=== PATIENT | female | born 1965 | race Caucasian/White ===

== ENCOUNTER 2016-05-31 01:17 | Inpatient (IN) | payer OTHER ==
[2016-05-31] MEDS ORDERED: MORPHINE SULFATE 10 MG/ML IV ONE (01:41)
[2016-05-31] MEDS ORDERED: BENADRYL 50 MG/ML IV ONE (01:41)
[2016-05-31] MEDS ORDERED: Sodium Chloride 0.9% 1000 ML 1,000 ML IV STA (01:41)
[2016-05-31] MEDS ORDERED: Adacel Vial IM ONE ×2 (01:42→01:59)
[2016-05-31] MEDS ORDERED: BENADRYL 50 MG/ML ONE (01:58)
[2016-05-31] MEDS ORDERED: Sodium Chloride 0.9% 1000 ML 1,000 ML ONE (01:59)
[2016-05-31] MEDS ORDERED: MORPHINE SULFATE 10 MG/ML ONE (01:59)
--- NOTE | 2016-05-31 02:00 | ERPHSYRPT ---
- History of Present Illness Time Seen by Provider: 05/31/16 01:36 Source: patient Patient Subjective Stated Complaint: "i have an abcess on my bottum since tue. i have been doing bactrim and warm compresses, but they are not working. i have had a fever of 103 yesterday. i took tylenol at 11:30" Triage Nursing Assessment: aox3, breathing unlabored, skin pale warm dry, steady gait Physician History: CC: right buttock abscess Hx: 50 y/o diabetic patient of Dr Brown with hx of IDDM. 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 She noted right buttock redness, swelling, abscess about a week ago. Saw [employer]OR[employer] CLERK and started bactrim. The pain, swelling, and abscess have markedly worsened so she came to ER. It is severe. No fever or chills. Some constipation. Normal urination. Unsure last tetanus but it was outdated. Timing/Duration: week(s) (1) Quality: burning, painful Severity: severe Allergies/Adverse Reactions: lisinopril Allergy (Verified 05/31/16 01:30) Home Medications: Aripiprazole [Abilify] 5 mg PO DAILY 10/21/15 [History] Gemfibrozil 600 mg [Lopid 600 mg] 600 mg PO BID 10/21/15 [History] Hydrochlorothiazide 25 mg [hydroDIURIL 25 MG] 25 mg PO DAILY 10/21/15 [ History] Insulin Aspart [NovoLOG Insulin] 1 unit SQ UD 10/21/15 [History] Insulin Detemir [Levemir] 60 unit SQ DAILY 10/21/15 [History] Losartan Potassium 25 mg PO DAILY 10/21/15 [History] Metformin HCl 1000 mg [Glucophage 1000 MG] 1,000 mg PO BID 10/21/15 [History] Sertraline HCl [Zoloft] 200 mg PO HS 10/21/15 [History] Simvastatin 40 mg PO DAILY 10/21/15 [History] Hx Tetanus, Diphtheria Vaccination/Date Given: Yes Hx Influenza Vaccination/Date Given: Yes (2015) Hx Pneumococcal Vaccination/Date Given: No Immunizations Up to Date: Yes - Review of Systems Constitutional: Malaise, No Fever, No Chills Eyes: No Symptoms Ears, Nose, & Throat: No Symptoms Respiratory: No Dyspnea Cardiac: No Chest Pain Abdominal/Gastrointestinal: No Abdominal Pain, No Nausea, No Vomiting Genitourinary Symptoms: No Dysuria Musculoskeletal: No Back Pain Skin: Skin Lesions (right buttock abscess) Neurological: No Headache All Other Systems: Reviewed and Negative - Past Medical History Pertinent Past Medical History: Yes Neurological History: Peripheral Neuropathy Cardiac History: High Cholesterol, Hypertension Endocrine Medical History: Diabetes Type II Psycho-Social History: Anxiety, Depression Other Medical History: Arthritis - Past Surgical History Past Surgical History: Yes Gastrointestinal: Appendectomy Female Surgical History: Hysterectomy Other Surgical History: breast reduction - Social History Smoking Status: Never smoker Exposure to second hand smoke: No Drug Use: none Patient Lives Alone: Yes - Nursing Vital Signs Nursing Vital Signs: Initial Vital Signs Temperature 103.1 F Temperature Source Oral Pulse Rate 103 Respiratory Rate 14 Blood Pressure [Left Arm] 142/68 Pain Intensity 7 - Physical Exam General Appearance: alert, other (pleasant lady) Eye Exam: PERRL/EOMI Ears, Nose, Throat Exam: normal ENT inspection Neck Exam: normal inspection, supple Respiratory Exam: lungs clear Cardiovascular Exam: regular rate/rhythm Extremity Exam: normal inspection, normal range of motion Neurologic Exam: alert, oriented x 3, cooperative, sensation nml, No motor deficits Skin Exam: warm, dry, other (large right gluteal abscess with some peeling skin , does not extend into perirectal or vaginal space. This is a rather large abscess.) SpO2 Interpretation: normal SpO2: 97 Oxygen Delivery: Room Air - Course Nursing assessment & vital signs reviewed: Yes Ordered Tests: Active Orders 24 hr Category Date Time Status IV Insertion STAT Care 05/31/16 01:41 Active NPO (ED) STAT Care 05/31/16 01:41 Active BLOOD CULTURE Stat Lab 05/31/16 02:03 Received CBC W DIFF Stat Lab 05/31/16 02:02 Completed CMP Stat Lab 05/31/16 02:02 Completed Lactic Acid Urgent Lab 05/31/16 01:41 Completed Manual Differential NC Stat Lab 05/31/16 02:02 Completed VENOUS BLOOD GAS Urgent Lab 05/31/16 02:40 Completed Medication Summary Generic Name Dose Route Start Last Admin Trade Name Freq PRN Reason Stop Dose Admin Ampicillin Sodium/Sulbactam Sodium 100 mls @ 100 mls/hr 05/31/16 02:30 02:45 Unasyn 3gm / Nacl 100ml IV 05/31/16 03:29 100 mls/hr STAT ONE Administration Potassium Chloride 100 mls @ 50 mls/hr 05/31/16 02:31 05/31/16 02:44 Potassium Chloride 20 Meq In Water 100ml IV 05/31/16 04:30 50 mls/hr STAT ONE Administration Lactated Ringer's 1,000 mls @ 150 mls/hr 05/31/16 03:00 Lactated Ringers IV 06/30/16 02:59 .[id number] TUAN Vancomycin HCl 250 mls @ 167 mls/hr 05/31/16 02:49 Vancomycin 1gm/ Ns 250ml IV 05/31/16 04:18 STAT ONE Discontinued Medications Generic Name Dose Route Start Last Admin Trade Name Freq PRN Reason Stop Dose Admin Diphenhydramine HCl 35 mg 05/31/16 01:41 05/31/16 02:03 Benadryl 50 Mg/Ml IV 05/31/16 01:42 35 mg STAT ONE Administration Diphenhydramine HCl Confirm 05/31/16 01:58 Benadryl 50 Mg/Ml Administered 05/31/16 01:59 Dose 50 mg .ROUTE .STK-MED ONE Diphtheria/Tetanus/Acell Pertussis 0.5 ml 05/31/16 01:42 05/31/16 02:03 Adacel Vial IM 05/31/16 01:43 0.5 ml .ONCE ONE Administration Diphtheria/Tetanus/Acell Pertussis Confirm 05/31/16 01:59 Adacel Vial Administered 05/31/16 02:00 Dose 0.5 ml IM .STK-MED ONE Sodium Chloride 1,000 mls @ 999 mls/hr 05/31/16 01:41 05/31/16 02:04 Sodium Chloride 0.9% 1000 Ml IV 05/31/16 02:41 999 mls/hr .Q1H1M STA Administration Sodium Chloride Confirm 05/31/16 01:59 Sodium Chloride 0.9% 1000 Ml Administered 05/31/16 02:00 Dose 1,000 mls @ ud .ROUTE .STK-MED ONE Ampicillin Sodium/Sulbactam Sodium Confirm 05/31/16 02:41 Unasyn 3gm / Nacl 100ml Administered 05/31/16 02:42 Dose 100 mls @ ud .ROUTE .STK-MED ONE Potassium Chloride Confirm 05/31/16 02:41 Potassium Chloride 20 Meq In Water 100ml Administered 05/31/16 02:42 Dose 100 mls @ ud IV .STK-MED ONE Insulin Aspart 5 unit 05/31/16 02:32 05/31/16 02:44 Novolog Insulin SQ 05/31/16 02:33 5 unit STAT ONE Administration Insulin Aspart Confirm 05/31/16 02:41 Novolog Insulin Administered 05/31/16 02:42 Dose 5 unit .ROUTE .STK-MED ONE Morphine Sulfate 7 mg 05/31/16 01:41 05/31/16 02:02 Morphine Sulfate 10 Mg/Ml IV 05/31/16 01:42 7 mg STAT ONE Administration Morphine Sulfate Confirm 05/31/16 01:59 Morphine Sulfate 10 Mg/Ml Administered 05/31/16 02:00 Dose 10 mg .ROUTE .STK-MED ONE Morphine Sulfate 4 mg 05/31/16 02:21 05/31/16 02:24 Morphine Sulfate 4 Mg Inj IV 05/31/16 02:22 4 mg STAT ONE Administration Morphine Sulfate Confirm 05/31/16 02:23 Morphine Sulfate 4 Mg Inj Administered 05/31/16 02:24 Dose 4 mg .ROUTE .STK-MED ONE Non-Formulary Medication 1 each 05/31/16 02:32 Pharmacy Dosing Request IJ 05/31/16 02:33 STAT ONE Lab/Rad Data: Laboratory Result Diagrams 05/31/16 02:02 05/31/16 02:02 Laboratory Results 05/31/16 05/31/16 05/31/16 Range/Units 02:40 02:02 02:02 WBC 19.7 H (4.0-10.5) K/mm3 RBC 4.56 (4.1-5.4) M/mm3 Hgb 12.1 (12.0-16.0) gm/dl Hct 35.8 (35-47) % MCV 78.5 (78-100) fl MCH 26.5 (26-32) pg MCHC 33.8 (32-36) g/dl RDW 14.5 H (11.5-14.0) % Plt Count 418 (150-450) K/mm3 MPV 9.1 (6-9.5) fl Segmented Neutrophils 78 H (36.0-66.0) % Band Neutrophils 5 H (0.0-2.0) % Lymphocytes (Manual) 12 L (24-44) % Monocytes (Manual) 5 (0.0-12.0) % Differential Comment ABNORMAL Dohle Bodies 2+ Platelet Estimate NORMAL (NORMAL) Polychromasia 1+ VBG pH 7.38 (7.32-7.42) VBG pCO2 at Pat Temp 33 L (42-55) mm/Hg VBG pO2 at Pat Temp 25 (25-40) mm/Hg VBG HCO3 19.5 L (22-28) meq/L VBG O2 Sat (Zach) 48.0 L (95-100) VBG Base Excess -4.8 L (-2.0-2.0) VBG Hemoglobin 12.3 VBG Carboxyhemoglobin 2.2 (0.0-6.9) % T HGB POC Potassium 3.1 L (3.5-5.1) Sodium 132 L (136-145) mEq/L Potassium 3.0 L* (3.5-5.1) mEq/L Chloride 93 L (98-107) mEq/L Carbon Dioxide 19.1 L (21-32) mEq/L Anion Gap 23.6 H (5-15) MEQ/L BUN 10 (9-20) mg/dL Creatinine 0.70 (0.55-1.30) mg/dl Estimated GFR > 60 ML/MIN Glucose 271 H (70-110) MG/DL Lactic Acid (0.4-2.0) Calcium 9.1 (8.5-10.1) mg/dL Total Bilirubin 0.4 (0.2-1.0) mg/dL AST 28 (15-37) U/L ALT 30 (12-78) U/L Alkaline Phosphatase 190 H (46-116) U/L Serum Total Protein 7.4 (6.4-8.2) gm/dL Albumin 2.2 L (3.4-5.0) g/dL 05/31/16 Range/Units 01:41 WBC (4.0-10.5) K/mm3 RBC (4.1-5.4) M/mm3 Hgb (12.0-16.0) gm/dl Hct (35-47) % MCV (78-100) fl MCH (26-32) pg MCHC (32-36) g/dl RDW (11.5-14.0) % Plt Count (150-450) K/mm3 MPV (6-9.5) fl Segmented Neutrophils (36.0-66.0) % Band Neutrophils (0.0-2.0) % Lymphocytes (Manual) (24-44) % Monocytes (Manual) (0.0-12.0) % Differential Comment Dohle Bodies Platelet Estimate (NORMAL) Polychromasia VBG pH (7.32-7.42) VBG pCO2 at Pat Temp (42-55) mm/Hg VBG pO2 at Pat Temp (25-40) mm/Hg VBG HCO3 (22-28) meq/L VBG O2 Sat (Zach) (95-100) VBG Base Excess (-2.0-2.0) VBG Hemoglobin VBG Carboxyhemoglobin (0.0-6.9) % T HGB POC Potassium (3.5-5.1) Sodium (136-145) mEq/L Potassium (3.5-5.1) mEq/L Chloride (98-107) mEq/L Carbon Dioxide (21-32) mEq/L Anion Gap (5-15) MEQ/L BUN (9-20) mg/dL Creatinine (0.55-1.30) mg/dl Estimated GFR ML/MIN Glucose (70-110) MG/DL Lactic Acid 1.5 (0.4-2.0) Calcium (8.5-10.1) mg/dL Total Bilirubin (0.2-1.0) mg/dL AST (15-37) U/L ALT (12-78) U/L Alkaline Phosphatase (46-116) U/L Serum Total Protein (6.4-8.2) gm/dL Albumin (3.4-5.0) g/dL - Progress Progress Note: 05/31/16 01:59 Advised pt NPO. This is a large abscess and will necesitate surgical drainage and anesthesia. She requests Dr Majo veliz. Will check labs and start abtx. 05/31/16 03:07 She now has 103 fever. IVF bolus given. K supplemented. Unasyn and vancomycin started. SQ insulin given. Called Dr Ochoa for Dr Brown and will admit to IP and consult Dr Kasper for surgical drng this AM. Discussed with Dr.: Gabriela Will see patient in: hospital (full admit) Counseled pt/family regarding: lab results, diagnosis, need for follow-up - Departure Time of Disposition: 03:08 Departure Disposition: In-patient Admission Clinical Impression: Abscess, gluteal, right, IDDM (insulin dependent diabetes mellitus), Hypokalemia Condition: Fair Critical Care Time: No
[2016-05-31 02:06] LABS: Mean Cell Volume 78.5 fl (78-100); Mean Corpuscular Hemoglobin 26.5 pg (26-32); Mean Platelet Volume 9.1 fl (6-9.5); Platelet Count 418 K/mm3 (150-450); Red Blood Count 4.56 M/mm3 (4.1-5.4); Red Cell Distribution Width 14.5 % (11.5-14.0); White Blood Count 19.7 K/mm3 (4.0-10.5)
[2016-05-31] MEDS ORDERED: MORPHINE SULFATE 4 MG INJ IV ONE ×2 (02:21→03:16)
[2016-05-31] MEDS ORDERED: MORPHINE SULFATE 4 MG INJ ONE ×2 (02:23→03:26)
[2016-05-31 02:27] LABS: ALBUMIN 2.2 g/dL (3.4-5.0); ALKALINE PHOSPHATASE 190 U/L (46-116); ANION GAP 23.6 MEQ/L (5-15); BILIRUBIN,TOTAL 0.4 mg/dL (0.2-1.0); BLOOD UREA NITROGEN 10 mg/dL (9-20); CHLORIDE 93 mEq/L (98-107); Carbon Dioxide 19.1 mEq/L (21-32); Glucose 271 MG/DL (70-110); SGOT/AST 28 U/L (15-37); SGPT/ALT 30 U/L (12-78); SODIUM 132 mEq/L (136-145); Total Protein 7.4 gm/dL (6.4-8.2)
[2016-05-31] MEDS ORDERED: Unasyn 3GM / NaCl 100ML 100 ML IV ONE (02:30)
[2016-05-31] MEDS ORDERED: POTASSIUM CHLORIDE 20 mEq IN WATER 100ML 100 ML IV ONE ×3 (02:31→09:00)
[2016-05-31 02:32] LABS: BAND 5 % (0.0-2.0); Platelet Estimate NORMAL (NORMAL); Total Cells Counted 100
[2016-05-31] MEDS ORDERED: NovoLOG Insulin SQ ONE (02:32)
[2016-05-31] MEDS ORDERED: PHARMACY DOSING REQUEST IJ ONE (02:32)
[2016-05-31 02:33] LABS: Polychromasia 1+
[2016-05-31 02:34] LABS: Dohle Bodies 2+
[2016-05-31] MEDS ORDERED: Unasyn 3GM / NaCl 100ML 100 ML ONE (02:41)
[2016-05-31] MEDS ORDERED: NovoLOG Insulin ONE (02:41)
[2016-05-31 02:45] LABS: VBG BASE EXCESS -4.8 (-2.0-2.0); VBG CARBOXYHEMOGLOBIN 2.2 % T HGB (0.0-6.9); VBG HCO3- 19.5 meq/L (22-28); VBG HEMOGLOBIN 12.3; VBG POTASSIUM 3.1 (3.5-5.1); VBG pH 7.38 (7.32-7.42)
[2016-05-31] MEDS ORDERED: Vancomycin 1GM/ Ns 250ML*** 250 ML IV ONE ×2 (02:49→03:13)
[2016-05-31] MEDS ORDERED: FEVERALL 650 MG PR STA (03:09)
[2016-05-31] MEDS ORDERED: FEVERALL 650 MG ONE (03:13)
[2016-05-31] MEDS ORDERED: Lactated Ringers 1,000 ML IV ONE (03:13)
[2016-05-31] MEDS: Lactated Ringers 1,000 ML IV SCH ×3 (03:17→21:23)
[2016-05-31] MEDS ORDERED: MORPHINE SULFATE 4 MG INJ IV PRN (04:01)
[2016-05-31] MEDS: Unasyn 1.5GM / NaCl 100ML 100 ML IV SCH ×3 (06:41→18:31)
[2016-05-31] MEDS ORDERED: Decadron 4 MG INJ IV ONE (08:00)
[2016-05-31] MEDS ORDERED: DIPRIVAN 200 MG/20 ML IV ONE (08:00)
[2016-05-31] MEDS ORDERED: TORAdol 30 mg Injection IJ ONE (08:00)
[2016-05-31] MEDS ORDERED: Zofran 4 MG/2 ML VIAL IV ONE (08:00)
[2016-05-31] MEDS ORDERED: Quelicin Fliptop 200 MG/10 ML IJ ONE (08:00)
--- NOTE | 2016-05-31 08:14 | PCM.HP ---
History of Present Illness - Chief Complaint Chief Complaint: R gluteal abcess History of Present Illness: is a 50 year old female who c/o abscess on R buttock x 7d, went to see Bobby Davenport [employer] SUPERINTENDENT 6d ago and got bactrim. 5d ago started running fever. Also c/ o decreased appetite. Came to ER yesterday, in pain, surgery consult scheduled ( pt NPO). Her pain meds are not lasting 4 hours. Has recurrent abscesses, last was September 2015 required I&D in [facility] office. - Review of Systems Constitutional: Fever, Chills Abdominal/Gastrointestinal: Appetite Changes Skin: Cellulitis, Other (abscess, pain) All Other Systems: Reviewed and Negative Medications & Allergies Home Medications: Home Medication List Aripiprazole [Abilify] 5 mg PO DAILY 10/21/15 [History Confirmed 05/31/16] Gemfibrozil 600 mg [Lopid 600 mg] 600 mg PO BID 10/21/15 [History Confirmed 05/31/16] Hydrochlorothiazide 25 mg [hydroDIURIL 25 MG] 25 mg PO DAILY 10/21/15 [ History Confirmed 05/31/16] Insulin Aspart [NovoLOG Insulin] 1 unit SQ UD 10/21/15 [History Confirmed ] Insulin Detemir [Levemir] 60 unit SQ DAILY 10/21/15 [History Confirmed 05/31/16] Losartan Potassium 25 mg PO DAILY 10/21/15 [History Confirmed 05/31/16] Metformin HCl 1000 mg [Glucophage 1000 MG] 1,000 mg PO BID 10/21/15 [History Confirmed 05/31/16] Sertraline HCl [Zoloft] 200 mg PO HS 10/21/15 [History Confirmed 05/31/16] Simvastatin 40 mg PO DAILY 10/21/15 [History Confirmed 05/31/16] Smz/Tmp Ds Tablet [Bactrim Ds Tablet] 1 udtab PO BID #20 tablet 10/22/15 [ Rx Confirmed 05/31/16] Allergies/Adverse Reactions: Allergies Allergy/AdvReac Type Severity Reaction Status Date / Time lisinopril Allergy Verified 05/31/16 01:30 - Past Medical History Past Medical History: Yes Neurological History: Peripheral Neuropathy Cardiac History: High Cholesterol, Hypertension Endocrine Medical History: Diabetes Type II Pyscho-Social History: Anxiety, Depression Comment: Arthritis - Female History Are you now?: No - Past Surgical History Past Surgical History: Yes GI Surgical History: Appendectomy Female Surgical History: Hysterectomy Other Surgical History: breast reduction - Social History Smoking Status: Never smoker Exposure to second hand smoke: No Alcohol: Occasionally Drug Use: none - Physical Exam Vital Signs: Vital Signs - 24 hr Temp Pulse Resp BP Pulse Ox 05/31/16 07:33 100.2 F 95 H 18 127/59 96 05/31/16 03:16 103.1 F 05/31/16 03:09 97 05/31/16 02:54 103.1 F 103 H 14 142/68 95 05/31/16 02:07 100 H 12 142/88 96 05/31/16 01:19 99.6 F 97 H 18 155/51 97 General Appearance: moderate distress Neurologic Exam: alert, oriented x 3, cooperative Eye Exam: eyes nml inspection Respiratory Exam: normal breath sounds, lungs clear, No crackles/rales, No rhonchi, No wheezing Cardiovascular Exam: regular rate/rhythm, normal heart sounds, No murmur Gastrointestinal/Abdomen Exam: soft, normal bowel sounds, No tenderness, No distention Rectal Exam: other (R buttock indurated throughout, medially there is erythema and some skin peeling. Induration superiorly to just proximal to gluteal cleft and extending over to the L.) Results - Labs Lab/Micro Results: Lab Results-Last 24 Hours 05/31/16 Range/Units 07:07 Potassium 3.1 L (3.5-5.1) mEq/L Assessment/Plan (1) Abscess, gluteal, right Current Visit: Yes Status: Acute Assessment & Plan: Surgery consulted, thank you! Will put pt on HADO[employer] DEVELOPER. Code(s): L02.31 - CUTANEOUS ABSCESS OF BUTTOCK (2) IDDM (insulin dependent diabetes mellitus) Current Visit: Yes Status: Acute Assessment & Plan: cut insulin in half for today. Code(s): E11.9 - TYPE 2 DIABETES MELLITUS WITHOUT COMPLICATIONS; Z79.4 - INTERMEDIATE (CURRENT) USE OF INSULIN
[2016-05-31] MEDS: Morphine PCA 1 MG/ML 30 ML IV PRN ×2 (08:35→19:29)
[2016-05-31] MEDS ORDERED: DILAUDID 2 MG INJECTION IV ONE (09:49)
[2016-05-31] MEDS ORDERED: SUBLIMAZE 100 MCG/2 ML IV ONE (09:49)
[2016-05-31] MEDS ORDERED: NON-FORMULARY ITEM (Simvastatin [Simvastatin] 40 MG) PO SCH (10:00)
[2016-05-31] MEDS ORDERED: NON-FORMULARY ITEM (Insulin Detemir [Levemir] 60 UNIT) SQ SCH (10:00)
[2016-05-31] MEDS ORDERED: NON-FORMULARY ITEM (Aripiprazole [Abilify] 5 MG) PO SCH (10:00)
[2016-05-31] MEDS: Abilify 10 MG PO SCH (10:57)
[2016-05-31] MEDS: Lantus Insulin SQ SCH (10:57)
[2016-05-31] MEDS: ZOCOR 20MG PO SCH (10:58)
[2016-05-31] MEDS ORDERED: OFIRMEV 100 ML IV ONE (11:17)
[2016-05-31] MEDS: Pepcid 20 MG VIAL IV SCH ×2 (11:26→21:22)
[2016-05-31] MEDS: NovoLOG Insulin SQ PRN ×2 (12:33→21:40)
--- NOTE | 2016-05-31 14:01 | CONS ---
CONSULT DATE: 05/31/2016 This patient is seen for Dr. Phipps who was chief controller for our group today. I was doing some cases down here and he asked that I check on the patient. 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 Apparently has had intermittent sores in the past that improved but never this bad. She had one week history of sores buttock area that is progressing, indurated, increased pain and swelling and some drainage. She has got some open wound areas. PAST MEDICAL HISTORY: Diabetes, hypercholesterolemia, hypertension, arthritis, history of anxiety and depression. PAST SURGICAL HISTORY: Breast reduction, hysterectomy, appendectomy in the past. She denied any surgery in the back area, denied any perirectal abscess in the past. MEDICATIONS: Insulin, losartan, Metformin, Sertraline, Simvastatin. ALLERGIES: LISINOPRIL. SOCIAL HISTORY: No smoking or alcohol abuse. REVIEW OF SYSTEMS: Reviewed per admission assessment. PHYSICAL EXAMINATION: GENERAL: No acute distress. HEENT: Sclera nonicteric. NECK: No JVD. CHEST: Equal excursion, nonlabored breathing. CVS: Regular rate and rhythm. ABDOMEN: Nondistended. BUTTOCK: Perirectal area diffuse indurated area along the left buttock area. Whether this started out as a methicillin resistant staphylococcus aureus-type infection versus a true perirectal is unclear at this point. Either way she has had extensive infection and benefit from debridement and/or drainage. EXTREMITIES: No other significant edema other the area in question. NEURO: Alert, moving extremities grossly symmetrically, limited by pain. LAB DATA AND TESTS: White blood cell count 19,700 on admission. Hemoglobin 12.1, PLT 418,000. The patient denied any blood thinner use. IMPRESSION: Diabetic 50 year-old female with worsening nonhealing wound infection and/or underlying abscess right buttock area. Whether it started off as a methicillin resistant staphylococcus aureus or more of a perirectal is unclear. Either way would benefit from debridement and drainage. Risk and benefits explained in detail but not limited to bleeding or infection, risk of ongoing infection or necrosis possibly requiring other procedures or operations, general risk of anesthesia, deep venous thrombosis, pulmonary embolism, pneumonia but not limited to, probable need for packing afterwards but not limited to. Will proceed with debridement and/or drainage of right buttock area nonhealing sores, infection or underlying abscess. The patient was seen for Dr. Phipps who is chief controller for our group.
[2016-05-31] MEDS ORDERED: SUBLIMAZE 100 MCG/2 ML ONE (17:09)
[2016-05-31] MEDS: VANCOCIN 1 GM VIAL*** 1 GM in Sodium Chloride 0.9% 250 ML 250 ML IV SCH (18:22)
[2016-05-31] MEDS: Colace 100 MG PO SCH (21:21)
[2016-05-31] MEDS: ZOLOFT 50 MG TABLET PO SCH (21:22)
[2016-05-31] MEDS: FLAGYL 500 MG IVPB 100 ML IV SCH (21:23)
[2016-05-31] MEDS ORDERED: NON-FORMULARY ITEM (Sertraline Hcl [Zoloft] 200 MG) PO SCH (22:00)
[2016-05-31] MEDS: Zosyn 3.375GM/100 Ml D5W 100 ML IV SCH (23:56)
[2016-06-01] MEDS: NovoLOG Insulin SQ PRN ×4 (01:47→16:54)
[2016-06-01] MEDS: VANCOCIN 1 GM VIAL*** 1 GM in Sodium Chloride 0.9% 250 ML 250 ML IV SCH ×2 (04:02→17:58)
[2016-06-01] MEDS: Zosyn 3.375GM/100 Ml D5W 100 ML IV SCH ×3 (05:59→17:47)
[2016-06-01 06:05] LABS: Mean Cell Volume 80.2 fl (78-100); Mean Corpuscular Hemoglobin 26.3 pg (26-32); Mean Platelet Volume 9.5 fl (6-9.5); Platelet Count 346 K/mm3 (150-450); Red Blood Count 3.84 M/mm3 (4.1-5.4); Red Cell Distribution Width 14.6 % (11.5-14.0); White Blood Count 21.4 K/mm3 (4.0-10.5)
[2016-06-01 06:10] LABS: ANION GAP 15.4 MEQ/L (5-15); BLOOD UREA NITROGEN 10 mg/dL (9-20); CHLORIDE 101 mEq/L (98-107); Carbon Dioxide 23.8 mEq/L (21-32); Glucose 289 MG/DL (70-110); Potassium 4.1 mEq/L (3.5-5.1); SODIUM 136 mEq/L (136-145)
[2016-06-01] MEDS: FLAGYL 500 MG IVPB 100 ML IV SCH ×3 (07:11→21:46)
--- NOTE | 2016-06-01 08:38 | PCM.NOTE ---
Date and Time: 06/01/16 0835 Subjective Assessment: Pt is feeling much better since the I&D. Dressing was just changed. - Review of Systems Constitutional: Fever (Tmax 100.6 at 11 am yesterday) Genitourinary Symptoms: Other (pain buttock) Objective Exam General Appearance: no apparent distress Neurologic Exam: alert, oriented x 3, cooperative Skin Exam: warm, dry Respiratory Exam: normal breath sounds, lungs clear, No crackles/rales, No rhonchi, No wheezing Cardiovascular Exam: regular rate/rhythm, normal heart sounds Rectal Exam: other (R buttock covered by fresh dressing. there is still some induration superior to gluteal cleft bilaterally.) OBJECTIVE DATA Vital Signs: Vital Signs - 24 hr Temp Pulse Resp BP BP Pulse Ox 06/01/16 07:26 94 L 06/01/16 07:18 98.3 F 86 18 110/57 93 L 06/01/16 05:00 98.5 F 89 16 115/57 94 L 06/01/16 00:23 98.7 F 89 18 118/61 95 05/31/16 21:00 98.5 F 92 H 97/48 96 05/31/16 19:29 96 05/31/16 19:26 96 05/31/16 19:07 96 05/31/16 17:50 98.5 F 92 H 20 97/48 96 05/31/16 17:44 98.8 F 87 16 107/55 93 L 05/31/16 15:05 98.4 F 20 97 05/31/16 12:35 98 05/31/16 11:25 98.4 F 70 18 119/56 98 05/31/16 11:01 100.6 F 70 20 119/56 98 Pain Assessment - Last Documented Pain Intensity 6 Pain Scale Used 0-10 Pain Scale Intake and Output: Intake & Output 05/29/16 05/30/16 05/31/16 06/01/16 11:59 11:59 11:59 11:59 Intake Total 0 1594 Balance 0 1594 Weight 69.717 kg Lab Results: Accuchecks Date 06/01/16 Date 05/31/16 Date 05/31/16 Date 05/31/16 Time 01:30 Time 21:30 Time 15:10 Time 11:30 Accucheck Value: 293 Accucheck Value: 327 Accucheck Value: 224 Accucheck Value: 234 Lab Results-Last 24 Hours 05/31/16 06/01/16 06/01/16 Range/Units 13:40 05:05 05:05 WBC 21.4 H (4.0-10.5) K/mm3 RBC 3.84 L (4.1-5.4) M/mm3 Hgb 10.1 L (12.0-16.0) gm/dl Hct 30.8 L (35-47) % MCV 80.2 (78-100) fl MCH 26.3 (26-32) pg MCHC 32.8 (32-36) g/dl RDW 14.6 H (11.5-14.0) % Plt Count 346 (150-450) K/mm3 MPV 9.5 (6-9.5) fl Sodium 136 (136-145) mEq/L Potassium 3.4 L 4.1 (3.5-5.1) mEq/L Chloride 101 (98-107) mEq/L Carbon Dioxide 23.8 (21-32) mEq/L Anion Gap 15.4 H (5-15) MEQ/L BUN 10 (9-20) mg/dL Creatinine 0.54 L (0.55-1.30) mg/dl Estimated GFR > 60 ML/MIN Glucose 289 H (70-110) MG/DL Calcium 8.3 L (8.5-10.1) mg/dL Assessment/Plan (1) Abscess, gluteal, right Current Visit: Yes Status: Acute Assessment & Plan: s/p I&D, thank you. She is on IV zosyn, flagyl, and vancomycin. Code(s): L02.31 - CUTANEOUS ABSCESS OF BUTTOCK (2) IDDM (insulin dependent diabetes mellitus) Current Visit: Yes Status: Acute Assessment & Plan: resume diabetic diet. Code(s): E11.9 - TYPE 2 DIABETES MELLITUS WITHOUT COMPLICATIONS; Z79.4 - SNF (CURRENT) USE OF INSULIN (3) Leukocytosis Current Visit: Yes Status: Acute Assessment & Plan: increased since yesterday, will recheck tomorrow, would expect it to start decreasing. Code(s): D72.829 - ELEVATED WHITE BLOOD CELL COUNT, UNSPECIFIED (4) Hypokalemia Current Visit: Yes Status: Acute Assessment & Plan: normal this morning. d/c telemetry, but will recheck in the morning. Code(s): E87.6 - HYPOKALEMIA
--- NOTE | 2016-06-01 08:54 | OP ---
SURGERY DATE/TIME: 05/31/2016 1601 PREOPERATIVE DIAGNOSIS: Right buttock nonhealing wound cellulitis induration question of underlying abscess. POSTOPERATIVE DIAGNOSIS: Necrotizing fasciitis soft tissue infection left buttock perirectal area back towards the sacral area. PROCEDURE: Excisional debridement necrotizing fasciitis right buttock skin subcutaneous fat and fascia extending from the posterior perirectal peroneal area back towards the sacral area 16 cm long by 3 cm wide area sharply debrided skin and subcutaneous fat and necrotic fascia. SURGEON: Dr. Dejon Cai. ANESTHESIA: General. ESTIMATED BLOOD LOSS: Minimal. INDICATIONS: As noted above. Risks and benefits explained in detail and not limited to and consent obtained. This patient is seen for Dr. Robin Phipps who was consulted. He was commission sales associate but they were doing some cases so asked that I would go ahead and proceed given her infection. She is diabetic. She had everything going on for a week or so and got worse in the past few days. It was felt that it needed surgical debridement and drainage. Consent had been obtained including the possibility of needing other procedures down the road or ongoing infection. DESCRIPTION OF PROCEDURE AND FINDINGS: The patient is taken to the operating room. General anesthesia induced. Lateral position and padding positioned per anesthesia and OR staff. The indurated poor quality skin more posteriorly was carefully excised debriding the skin underlying necrotic subcu fat. Foul grayish material, some gas form bacteria carefully drained from the wound and it was cultured. There was also fluctuant area anterior and posterior perirectal area. A quarter-sized area of this was debrided. Again this foul fluid drained in this area, too. The posterior area appeared to be the initial location therefore we kept enlarging area of debridement debriding the necrotic underlying subcu fat and fascia down to visible oozing viable fat and fascia this took some time but slowly and carefully accomplished debriding all visible necrotic fat requiring enlarging skin opening wider to allow for visualization of the necrotic and other areas of fat and fascia. This took some time in this area extending from the anterior perirectal wound back towards the sacral area about 16 cm and about 3 cm wide. Copious amount of irrigation was irrigated until clear. Again sharp debridement of the skin and subcutaneous fat and fascia down to as viable tissue she had available. The wound is then packed with some Kerlix Iodoform soaked, switched over to normal saline wet to dry on a daily basis starting tomorrow. There were no family or friends available to discuss the findings with at this time.
[2016-06-01] MEDS ORDERED: MORPHINE SULFATE 2 MG INJ IV PRN (09:06)
[2016-06-01] MEDS ORDERED: MORPHINE SULFATE 4 MG INJ IV PRN (09:07)
[2016-06-01] MEDS: Abilify 10 MG PO SCH (09:22)
[2016-06-01] MEDS: ZOCOR 20MG PO SCH (09:22)
[2016-06-01] MEDS: Pepcid 20 MG VIAL IV SCH ×2 (09:23→21:47)
[2016-06-01] MEDS: Colace 100 MG PO SCH ×2 (09:23→21:46)
[2016-06-01] MEDS: Lantus Insulin SQ SCH (09:23)
[2016-06-01] MEDS: Glucophage 500 MG PO SCH ×2 (09:23→16:50)
[2016-06-01] MEDS: hydroDIURIL 25 MG PO SCH (09:29)
[2016-06-01] MEDS: Lactated Ringers 1,000 ML IV SCH ×5 (09:29→13:31)
[2016-06-01] MEDS: Cozaar 50 MG PO SCH (09:29)
[2016-06-01] MEDS: Morphine PCA 1 MG/ML 30 ML IV PRN ×2 (09:45→22:12)
[2016-06-01] MEDS ORDERED: PNEUMOVAX 23 IM ONE (10:00)
[2016-06-01] MEDS: LOPID 600 MG PO SCH ×2 (11:07→21:47)
[2016-06-01 12:29] LABS: ANISOCYTOSIS 1+; BAND 1 % (0.0-2.0); Platelet Estimate NORMAL (NORMAL); Poikilocytosis 1+; Total Cells Counted 100
[2016-06-01] MEDS ORDERED: TROUGH DRUG LEVELS IJ ONE (15:30)
[2016-06-01] MEDS: VANCOCIN 1 GM VIAL*** 1.25 GM in Sodium Chloride 0.9% 250 ML 250 ML IV SCH (18:54)
[2016-06-01] MEDS: ZOLOFT 50 MG TABLET PO SCH (21:47)
[2016-06-02] MEDS: Zosyn 3.375GM/100 Ml D5W 100 ML IV SCH ×4 (00:02→16:45)
[2016-06-02] MEDS: FLAGYL 500 MG IVPB 100 ML IV SCH ×4 (05:08→22:42)
[2016-06-02 05:55] LABS: BASOPHIL % 0.1 % (0.0-0.4); Eosinophil % 0.2 % (0.00-5.0); Granulocytes % 78.1 % (36.0-66.0); Lymphocytes % 17.5 % (24.0-44.0); Mean Cell Volume 80.2 fl (78-100); Mean Corpuscular Hemoglobin 26.5 pg (26-32); Mean Platelet Volume 9.5 fl (6-9.5); Monocytes % 4.1 % (0.0-12.0); Platelet Count 364 K/mm3 (150-450); Red Blood Count 3.58 M/mm3 (4.1-5.4); Red Cell Distribution Width 14.8 % (11.5-14.0); White Blood Count 14.7 K/mm3 (4.0-10.5)
[2016-06-02 05:56] LABS: ANION GAP 14.3 MEQ/L (5-15); BLOOD UREA NITROGEN 9 mg/dL (9-20); CHLORIDE 101 mEq/L (98-107); Carbon Dioxide 27.4 mEq/L (21-32); Glucose 298 MG/DL (70-110); Potassium 3.1 mEq/L (3.5-5.1); SODIUM 140 mEq/L (136-145)
[2016-06-02] MEDS: VANCOCIN 1 GM VIAL*** 1.25 GM in Sodium Chloride 0.9% 250 ML 250 ML IV SCH ×2 (07:20→17:34)
[2016-06-02] MEDS: Glucophage 500 MG PO SCH ×2 (07:29→16:44)
[2016-06-02] MEDS: NovoLOG Insulin SQ PRN ×4 (07:30→23:22)
[2016-06-02] MEDS: Morphine PCA 1 MG/ML 30 ML IV PRN ×2 (07:42→07:54)
[2016-06-02 08:10] LABS: BAND 1 % (0.0-2.0); Eosinophil 1 % (0.00-3.0); Total Cells Counted 100
[2016-06-02 08:11] LABS: ANISOCYTOSIS 1+; Platelet Estimate NORMAL (NORMAL); Toxic Granulation 1+
[2016-06-02] MEDS: Abilify 10 MG PO SCH (09:17)
[2016-06-02] MEDS: Pepcid 20 MG VIAL IV SCH ×2 (09:17→22:42)
[2016-06-02] MEDS: Colace 100 MG PO SCH ×2 (09:19→22:41)
[2016-06-02] MEDS: LOPID 600 MG PO SCH ×2 (09:20→22:42)
[2016-06-02] MEDS: ZOCOR 20MG PO SCH (09:20)
[2016-06-02] MEDS: hydroDIURIL 25 MG PO SCH (09:23)
[2016-06-02] MEDS: Cozaar 50 MG PO SCH (09:23)
[2016-06-02] MEDS: Lantus Insulin SQ SCH (09:30)
[2016-06-02] MEDS ORDERED: MORPHINE SULFATE 10 MG/ML IV ONE (09:42)
[2016-06-02] MEDS ORDERED: BETADINE TOP ONE (09:43)
[2016-06-02] MEDS ORDERED: DILAUDID 1 MG/1ML PCA ONE (10:36)
--- NOTE | 2016-06-02 10:40 | PCM.NOTE ---
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 Pain worst with dressing changes. Tolerating po. - Review of Systems Constitutional: No Fever Abdominal/Gastrointestinal: No Vomiting Skin: Other (pain, buttock) Objective Exam General Appearance: moderate distress (during dressing change) Neurologic Exam: alert, oriented x 3, cooperative Skin Exam: normal color, warm, dry Respiratory Exam: normal breath sounds, No crackles/rales, No rhonchi, No wheezing Cardiovascular Exam: regular rate/rhythm, normal heart sounds, No murmur Rectal Exam: other (R buttock with large post-op defect, 11 cm x 4cm. superior to this is a 2 cm defect as well.) OBJECTIVE DATA Vital Signs: Vital Signs - 24 hr Temp Pulse Resp BP Pulse Ox 06/02/16 07:54 93 L 06/02/16 07:41 98.2 F 91 H 16 98/51 94 L 06/02/16 07:28 94 L 06/02/16 04:00 98.1 F 91 H 16 108/57 92 L 06/02/16 02:12 94 L 06/01/16 23:48 98 F 80 106/53 96 06/01/16 22:12 94 L 06/01/16 20:00 97.8 F 87 15 101/57 94 L 06/01/16 17:48 93 L 06/01/16 16:35 98.0 F 74 18 100/51 93 L 06/01/16 13:45 94 L 06/01/16 11:17 98.5 F 80 17 101/53 94 L Pain Assessment - Last Documented Pain Intensity 10 Pain Scale Used 0-10 Pain Scale Intake and Output: Intake & Output 05/30/16 05/31/16 06/01/16 06/02/16 11:59 11:59 11:59 11:59 Intake Total 0 1594 3151 Balance 0 1594 3151 Weight 69.717 kg Lab Results: Accuchecks Date 06/02/16 Date 06/01/16 Date 06/01/16 Date 06/01/16 Time 07:26 Time 21:30 Time 17:33 Time 11:30 Accucheck Value: 298 Accucheck Value: 281 Accucheck Value: 284 Accucheck Value: 347 Lab Results-Last 24 Hours 06/01/16 06/01/16 06/02/16 Range/Units 05:05 16:00 05:33 WBC 21.4 H 14.7 H (4.0-10.5) K/mm3 RBC 3.84 L 3.58 L (4.1-5.4) M/mm3 Hgb 10.1 L 9.5 L (12.0-16.0) gm/dl Hct 30.8 L 28.7 L (35-47) % MCV 80.2 80.2 (78-100) fl MCH 26.3 26.5 (26-32) pg MCHC 32.8 33.1 (32-36) g/dl RDW 14.6 H 14.8 H (11.5-14.0) % Plt Count 346 364 (150-450) K/mm3 MPV 9.5 9.5 (6-9.5) fl Gran % 78.1 H (36.0-66.0) % Lymphocytes % 17.5 L (24.0-44.0) % Monocytes % 4.1 (0.0-12.0) % Eosinophils % 0.2 (0.00-5.0) % Basophils % 0.1 (0.0-0.4) % Segmented Neutrophils 93 H 79 H (36.0-66.0) % Band Neutrophils 1 1 (0.0-2.0) % Lymphocytes (Manual) 5 L 18 L (24-44) % Monocytes (Manual) 1 1 (0.0-12.0) % Eosinophils (Manual) 1 (0.00-3.0) % Basophils # 0.02 (0-0.4) Differential Comment ABNORMAL Toxic Granulation 1+ Platelet Estimate NORMAL NORMAL (NORMAL) Poikilocytosis 1+ Anisocytosis 1+ 1+ Sodium (136-145) mEq/L Potassium (3.5-5.1) mEq/L Chloride (98-107) mEq/L Carbon Dioxide (21-32) mEq/L Anion Gap (5-15) MEQ/L BUN (9-20) mg/dL Creatinine (0.55-1.30) mg/dl Estimated GFR ML/MIN Glucose (70-110) MG/DL Calcium (8.5-10.1) mg/dL Vancomycin Trough 5.0 L (10-20) UG/ML 06/02/16 Range/Units 05:33 WBC (4.0-10.5) K/mm3 RBC (4.1-5.4) M/mm3 Hgb (12.0-16.0) gm/dl Hct (35-47) % MCV (78-100) fl MCH (26-32) pg MCHC (32-36) g/dl RDW (11.5-14.0) % Plt Count (150-450) K/mm3 MPV (6-9.5) fl Gran % (36.0-66.0) % Lymphocytes % (24.0-44.0) % Monocytes % (0.0-12.0) % Eosinophils % (0.00-5.0) % Basophils % (0.0-0.4) % Segmented Neutrophils (36.0-66.0) % Band Neutrophils (0.0-2.0) % Lymphocytes (Manual) (24-44) % Monocytes (Manual) (0.0-12.0) % Eosinophils (Manual) (0.00-3.0) % Basophils # (0-0.4) Differential Comment Toxic Granulation Platelet Estimate (NORMAL) Poikilocytosis Anisocytosis Sodium 140 (136-145) mEq/L Potassium 3.1 L (3.5-5.1) mEq/L Chloride 101 (98-107) mEq/L Carbon Dioxide 27.4 (21-32) mEq/L Anion Gap 14.3 (5-15) MEQ/L BUN 9 (9-20) mg/dL Creatinine 0.61 (0.55-1.30) mg/dl Estimated GFR > 60 ML/MIN Glucose 298 H (70-110) MG/DL Calcium 8.2 L (8.5-10.1) mg/dL Vancomycin Trough (10-20) UG/ML Assessment/Plan (1) Abscess, gluteal, right Current Visit: Yes Status: Acute Assessment & Plan: PT for dressing changes, surgery following pt. Would like surgery opinion on need for wound vac in the future. 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 She is on vanc, zosyn, and flagyl (all IV). Code(s): L02.31 - CUTANEOUS ABSCESS OF BUTTOCK (2) IDDM (insulin dependent diabetes mellitus) Current Visit: Yes Status: Acute Assessment & Plan: BS in 200s-300s - will increase long acting insulin to 50 units at hs. She was on 60 units at hs at home, had decreased by half on admission as she was NPO but will start increasing back to home dosage now. Code(s): E11.9 - TYPE 2 DIABETES MELLITUS WITHOUT COMPLICATIONS; Z79.4 - [facility]IV[facility] (CURRENT) USE OF INSULIN (3) Leukocytosis Current Visit: Yes Status: Acute Assessment & Plan: improved today, WBC 14.9. Code(s): D72.829 - ELEVATED WHITE BLOOD CELL COUNT, UNSPECIFIED (4) Hypokalemia Current Visit: Yes Status: Acute Assessment & Plan: mild today. po repletion. recheck in a.m. Code(s): E87.6 - HYPOKALEMIA
[2016-06-02] MEDS: DILAUDID 1 MG/1ML PCA IV PRN (10:51)
[2016-06-02] MEDS: Klor Con 10 MEQ PO SCH (11:31)
[2016-06-02] MEDS: Lactated Ringers 1,000 ML IV SCH (15:14)
[2016-06-02] MEDS: ZOLOFT 50 MG TABLET PO SCH (22:42)
[2016-06-02] MEDS: IMODIUM 2 MG PO PRN (23:22)
[2016-06-03] MEDS: Zosyn 3.375GM/100 Ml D5W 100 ML IV SCH ×4 (01:18→17:02)
[2016-06-03] MEDS: FLAGYL 500 MG IVPB 100 ML IV SCH ×2 (05:09→13:20)
[2016-06-03] MEDS ORDERED: TROUGH DRUG LEVELS IJ ONE (05:30)
[2016-06-03 05:42] LABS: BASOPHIL % 0.2 % (0.0-0.4); Eosinophil % 0.4 % (0.00-5.0); Granulocytes % 77.7 % (36.0-66.0); Lymphocytes % 17.1 % (24.0-44.0); Mean Platelet Volume 9.1 fl (6-9.5); Monocytes % 4.6 % (0.0-12.0); Platelet Count 385 K/mm3 (150-450); Red Blood Count 3.69 M/mm3 (4.1-5.4); Red Cell Distribution Width 14.8 % (11.5-14.0); White Blood Count 13.8 K/mm3 (4.0-10.5)
[2016-06-03 05:48] LABS: Mean Corpuscular Hemoglobin 26.5 pg (26-32)
[2016-06-03 06:03] LABS: ANION GAP 13.6 MEQ/L (5-15); BLOOD UREA NITROGEN 7 mg/dL (9-20); CHLORIDE 104 mEq/L (98-107); Carbon Dioxide 28.9 mEq/L (21-32); Glucose 167 MG/DL (70-110); MAGNESIUM 1.2 mg/dL (1.8-2.4); Potassium 3.6 mEq/L (3.5-5.1); SODIUM 143 mEq/L (136-145)
[2016-06-03] MEDS: DILAUDID 1 MG/1ML PCA IV PRN ×3 (07:18→16:41)
[2016-06-03] MEDS: Glucophage 500 MG PO SCH ×2 (07:26→16:20)
[2016-06-03] MEDS: VANCOCIN 1 GM VIAL*** 1.25 GM in Sodium Chloride 0.9% 250 ML 250 ML IV SCH (07:28)
[2016-06-03] MEDS: NovoLOG Insulin SQ PRN ×2 (07:29→11:05)
[2016-06-03 07:49] LABS: ATYPICAL LYMPHS 1 %; Total Cells Counted 100
[2016-06-03 07:50] LABS: ANISOCYTOSIS 1+; Hypochromia 1+; Platelet Estimate NORMAL (NORMAL); Toxic Granulation 1+
--- NOTE | 2016-06-03 08:14 | PCM.NOTE ---
Date and Time: 06/03/16 08 Subjective Assessment: Feeling much better with dilaudid TONGUE TRIMMER, she was able to sleep yesterday and last night (previously not sleeping well d/t pain). Objective Exam General Appearance: no apparent distress Neurologic Exam: alert, oriented x 3, cooperative Skin Exam: normal color, warm, dry Respiratory Exam: normal breath sounds, crackles/rales (scattered) Cardiovascular Exam: regular rate/rhythm, normal heart sounds, No murmur Rectal Exam: deferred (dressing in place) OBJECTIVE DATA Vital Signs: Vital Signs - 24 hr Temp Pulse Resp BP Pulse Ox 06/03/16 07:22 98.4 F 84 17 122/60 92 L 06/03/16 07:18 93 L 06/03/16 04:00 98.2 F 84 15 117/56 91 L 06/02/16 23:56 98.4 F 89 15 103/56 92 L 06/02/16 20:00 98.2 F 84 16 106/53 90 L 06/02/16 16:00 98.8 F 85 18 112/57 93 L 06/02/16 12:00 98.8 F 93 H 17 98/55 94 L Pain Assessment - Last Documented Pain Intensity 2 Pain Scale Used [facility] Intake and Output: Intake & Output 05/31/16 06/01/16 06/02/16 06/03/16 11:59 11:59 11:59 11:59 Intake Total 0 1594 3151 2011 Balance 0 1594 3151 2011 Weight 69.717 kg 69.717 kg Lab Results: Accuchecks Date 06/03/16 Date 06/02/16 Date 06/02/16 Date 06/02/16 Time 07:11 Time 21:00 Time 16:43 Time 12:16 Accucheck Value: 167 Accucheck Value: 203 Accucheck Value: 201 Accucheck Value: 209 Lab Results-Last 24 Hours 06/03/16 06/03/16 06/03/16 Range/Units 05:28 05:28 05:28 WBC 13.8 H (4.0-10.5) K/mm3 RBC 3.69 L (4.1-5.4) M/mm3 Hgb 9.8 L (12.0-16.0) gm/dl Hct 29.9 L (35-47) % MCV 81.0 (78-100) fl MCH 26.5 (26-32) pg MCHC 32.8 (32-36) g/dl RDW 14.8 H (11.5-14.0) % Plt Count 385 (150-450) K/mm3 MPV 9.1 (6-9.5) fl Gran % 77.7 H (36.0-66.0) % Lymphocytes % 17.1 L (24.0-44.0) % Monocytes % 4.6 (0.0-12.0) % Eosinophils % 0.4 (0.00-5.0) % Basophils % 0.2 (0.0-0.4) % Segmented Neutrophils 77 H (36.0-66.0) % Lymphocytes (Manual) 20 L (24-44) % Monocytes (Manual) 2 (0.0-12.0) % Basophils # 0.03 (0-0.4) Differential Comment ABNORMAL Atypical Lymphocytes 1 % Toxic Granulation 1+ Platelet Estimate NORMAL (NORMAL) Hypochromasia 1+ Anisocytosis 1+ Sodium 143 (136-145) mEq/L Potassium 3.6 (3.5-5.1) mEq/L Chloride 104 (98-107) mEq/L Carbon Dioxide 28.9 (21-32) mEq/L Anion Gap 13.6 (5-15) MEQ/L BUN 7 L (9-20) mg/dL Creatinine 0.44 L (0.55-1.30) mg/dl Estimated GFR > 60 ML/MIN Glucose 167 H (70-110) MG/DL Calcium 7.8 L (8.5-10.1) mg/dL Magnesium 1.2 L (1.8-2.4) mg/dL Vancomycin Trough 8.3 L (10-20) UG/ML Multi-Disciplinary Progress Notes: Multi-Disciplinary Progress Notes 06/03/16 07:20 Pharmacy Note by Jordan Castro VANCOMYCIN DOSING UPDATE VANCOMYCIN TROUGH 8.3 ON 06/03/16 WITH 1.25G IV Q 12 HRS VANCOMYCIN DOSE INCREASED TO 1.5G IV Q 12 HRS. THIS PATIENT NOT A CANDIDATE FOR ONCE A DAY VANCOMYCIN DOSING AT THIS TIME. Initialized on 06/03/16 07:20 - END OF NOTE Assessment/Plan (1) Abscess, gluteal, right Current Visit: Yes Status: Acute Assessment & Plan: on Vancomycin, flagyl, and zosyn. Cultures pending. Per surgery,thank you! Code(s): L02.31 - CUTANEOUS ABSCESS OF BUTTOCK (2) IDDM (insulin dependent diabetes mellitus) Current Visit: Yes Status: Acute Assessment & Plan: BS better this a.m. after increasing lantus back up to 50 units at hs. Home dose is 60 units, may increase if BS persistently elevated. Code(s): E11.9 - TYPE 2 DIABETES MELLITUS WITHOUT COMPLICATIONS; Z79.4 - [facility] (CURRENT) USE OF INSULIN (3) Leukocytosis Current Visit: Yes Status: Acute Assessment & Plan: improved. Code(s): D72.829 - ELEVATED WHITE BLOOD CELL COUNT, UNSPECIFIED (4) Hypokalemia Current Visit: Yes Status: Acute Assessment & Plan: on po potassium. doing well. Code(s): E87.6 - HYPOKALEMIA
[2016-06-03] MEDS ORDERED: Sodium Chloride 0.9% 500 ML 500 ML IV ONE (08:19)
[2016-06-03] MEDS: Lactated Ringers 1,000 ML IV SCH (08:34)
[2016-06-03] MEDS: ZOCOR 20MG PO SCH (09:13)
[2016-06-03] MEDS: Klor Con 10 MEQ PO SCH (09:13)
[2016-06-03] MEDS: hydroDIURIL 25 MG PO SCH (09:14)
[2016-06-03] MEDS: Pepcid 20 MG VIAL IV SCH ×2 (09:14→22:17)
[2016-06-03] MEDS: Abilify 10 MG PO SCH (09:14)
[2016-06-03] MEDS: Colace 100 MG PO SCH ×2 (09:15→22:17)
[2016-06-03] MEDS: Cozaar 50 MG PO SCH (09:15)
[2016-06-03] MEDS: Lantus Insulin SQ SCH (09:16)
[2016-06-03] MEDS: LOPID 600 MG PO SCH ×2 (09:16→22:17)
[2016-06-03] MEDS: MORPHINE SULFATE 10 MG/ML IV PRN ×2 (09:41→22:17)
[2016-06-03] MEDS ORDERED: Sodium Chloride 0.9% 500 ML 500 ML IV SCH (14:00)
[2016-06-03] MEDS: VANCOCIN 1 GM VIAL*** 1.5 GM in Sodium Chloride 0.9% 500 ML 500 ML IV SCH (18:01)
[2016-06-03] MEDS: ZOLOFT 50 MG TABLET PO SCH (22:17)
[2016-06-03] MEDS: MAG-OX 400 PO SCH (22:17)
[2016-06-04] MEDS: Zosyn 3.375GM/100 Ml D5W 100 ML IV SCH ×2 (00:38→05:20)
[2016-06-04] MEDS: Zofran 4 MG/2 ML VIAL IV PRN (00:44)
[2016-06-04 05:31] LABS: Mean Cell Volume 82.3 fl (78-100); Platelet Count 377 K/mm3 (150-450); Red Blood Count 3.61 M/mm3 (4.1-5.4); Red Cell Distribution Width 14.8 % (11.5-14.0); White Blood Count 12.6 K/mm3 (4.0-10.5)
[2016-06-04 05:42] LABS: Mean Corpuscular Hemoglobin 26.5 pg (26-32)
[2016-06-04 05:58] LABS: MAGNESIUM 1.5 mg/dL (1.8-2.4)
[2016-06-04] MEDS: DILAUDID 1 MG/1ML PCA IV PRN ×3 (06:14→19:36)
[2016-06-04] MEDS: VANCOCIN 1 GM VIAL*** 1.5 GM in Sodium Chloride 0.9% 500 ML 500 ML IV SCH ×2 (06:26→18:13)
[2016-06-04] MEDS: Glucophage 500 MG PO SCH ×2 (08:00→18:13)
[2016-06-04] MEDS: MAG-OX 400 PO SCH ×2 (08:56→21:57)
[2016-06-04] MEDS: ZOCOR 20MG PO SCH (08:56)
[2016-06-04] MEDS: Klor Con 10 MEQ PO SCH (08:56)
[2016-06-04] MEDS: Abilify 10 MG PO SCH (08:56)
[2016-06-04] MEDS: Colace 100 MG PO SCH ×2 (08:56→21:57)
[2016-06-04] MEDS: Lantus Insulin SQ SCH (08:57)
[2016-06-04] MEDS: Pepcid 20 MG VIAL IV SCH ×2 (08:57→21:57)
[2016-06-04] MEDS: Cozaar 50 MG PO SCH (08:57)
[2016-06-04] MEDS: LOPID 600 MG PO SCH ×2 (08:57→21:58)
[2016-06-04] MEDS: hydroDIURIL 25 MG PO SCH (08:57)
--- NOTE | 2016-06-04 09:00 | PCM.NOTE ---
Date and Time: 06/04/16 0856 Subjective Assessment: Pt still having pain, does not have any meds for breakthrough pain. She had diarrhea last night, but none this morning. Edwige po fine. - Review of Systems Constitutional: No Fever Abdominal/Gastrointestinal: Diarrhea, No Vomiting Objective Exam General Appearance: no apparent distress Neurologic Exam: alert, oriented x 3, cooperative Skin Exam: normal color, warm, dry Respiratory Exam: normal breath sounds, lungs clear, No crackles/rales, No rhonchi, No wheezing Cardiovascular Exam: regular rate/rhythm, normal heart sounds, No murmur Rectal Exam: other (dressing in place, wound not examined today) OBJECTIVE DATA Vital Signs: Vital Signs - 24 hr Temp Pulse Resp BP Pulse Ox 06/04/16 07:14 98.1 F 83 18 113/57 91 L 06/04/16 06:14 95 06/04/16 04:00 97.9 F 80 14 119/57 93 L 06/04/16 00:00 98.4 F 83 14 124/60 91 L 06/03/16 20:41 91 L 06/03/16 20:27 91 L 06/03/16 19:51 98.3 F 81 16 111/55 93 L 06/03/16 17:20 94 L 06/03/16 16:41 94 L 06/03/16 16:00 97.9 F 80 17 109/58 94 L 06/03/16 14:58 92 L 06/03/16 13:20 92 L 06/03/16 11:28 97.8 F 84 19 123/58 91 L 06/03/16 10:55 88 18 91 L Oxygen-Last 24 hours O2 Percentage 2 Liters = 28% O2 Percentage 2 Liters = 28% O2 Percentage 2 Liters = 28% O2 Percentage 2 Liters = 28% Pain Assessment - Last Documented Pain Intensity 4 Pain Scale Used 0-10 Pain Scale Intake and Output: Intake & Output 06/01/16 06/02/16 06/03/16 06/04/16 11:59 11:59 11:59 11:59 Intake Total 1594 3151 2011 2100 Balance 1594 3151 2011 2100 Weight 69.717 kg Lab Results: Accuchecks Date 06/03/16 Date 06/03/16 Time 16:17 Time 11:02 Accucheck Value: 159 Accucheck Value: 126 Accucheck Value: 162 Lab Results-Last 24 Hours 06/04/16 06/04/16 06/04/16 Range/Units 01:30 05:13 05:13 WBC 12.6 H (4.0-10.5) K/mm3 RBC 3.61 L (4.1-5.4) M/mm3 Hgb 9.6 L (12.0-16.0) gm/dl Hct 29.7 L (35-47) % MCV 82.3 (78-100) fl MCH 26.5 (26-32) pg MCHC 32.3 (32-36) g/dl RDW 14.8 H (11.5-14.0) % Plt Count 377 (150-450) K/mm3 MPV 9.0 (6-9.5) fl Magnesium 1.5 L (1.8-2.4) mg/dL NT-Pro-B Natriuret Pep 1772 H (0-125) pg/ml Stl C. diff Tox B Gene NEGATIVE (NEGATIVE) C.difficile [id number] PRESUMPTIVE NEGATIVE (NEGATIVE) Assessment/Plan (1) Abscess, gluteal, right Current Visit: Yes Status: Acute Assessment & Plan: Per surgery, thank you. She did have a cx + for ESBL E. coli and zosyn was switched to meropenem this morning; although the E. coli is susceptible to the zosyn, it is not the recommended treatment due to possible treatment failures and resistance. Surgery is considering wound vac; would like their recommendation as pt will have to be transferred for wound vac application. Code(s): L02.31 - CUTANEOUS ABSCESS OF BUTTOCK (2) IDDM (insulin dependent diabetes mellitus) Current Visit: Yes Status: Acute Code(s): E11.9 - TYPE 2 DIABETES MELLITUS WITHOUT COMPLICATIONS; Z79.4 - [facility]IV[facility] (CURRENT) USE OF INSULIN (3) Leukocytosis Current Visit: Yes Status: Acute Assessment & Plan: much improved. Code(s): D72.829 - ELEVATED WHITE BLOOD CELL COUNT, UNSPECIFIED (4) Hypokalemia Current Visit: Yes Status: Acute Assessment & Plan: recheck this morning. Code(s): E87.6 - HYPOKALEMIA
[2016-06-04] MEDS: MORPHINE SULFATE 10 MG/ML IV PRN (10:09)
[2016-06-04 10:46] LABS: ANION GAP 13.1 MEQ/L (5-15); BLOOD UREA NITROGEN 4 mg/dL (9-20); CHLORIDE 104 mEq/L (98-107); Carbon Dioxide 29.3 mEq/L (21-32); Glucose 190 MG/DL (70-110); Potassium 3.1 mEq/L (3.5-5.1); SODIUM 143 mEq/L (136-145)
[2016-06-04] MEDS: NovoLOG Insulin SQ PRN (11:47)
[2016-06-04] MEDS: Merrem 1 GM 1 G in Sodium Chloride 100ML MINI-BAG PLUS 100 ML IV SCH ×2 (14:28→21:57)
[2016-06-04] MEDS: Sodium Chloride 0.9% 1000 ML 1,000 ML IV SCH (15:02)
[2016-06-04] MEDS: ZOLOFT 50 MG TABLET PO SCH (21:57)
[2016-06-04] MEDS: IMODIUM 2 MG PO PRN (22:02)
[2016-06-05] MEDS: Norco 10/325 MG Tablet PO PRN ×3 (04:45→22:26)
[2016-06-05] MEDS: Merrem 1 GM 1 G in Sodium Chloride 100ML MINI-BAG PLUS 100 ML IV SCH ×3 (05:11→22:27)
[2016-06-05] MEDS: VANCOCIN 1 GM VIAL*** 1.5 GM in Sodium Chloride 0.9% 500 ML 500 ML IV SCH ×2 (05:12→18:02)
[2016-06-05 05:57] LABS: Mean Cell Volume 83.4 fl (78-100); Mean Platelet Volume 8.9 fl (6-9.5); Platelet Count 417 K/mm3 (150-450); Red Blood Count 3.68 M/mm3 (4.1-5.4); Red Cell Distribution Width 14.9 % (11.5-14.0); White Blood Count 9.8 K/mm3 (4.0-10.5)
[2016-06-05 06:12] LABS: Mean Corpuscular Hemoglobin 26.3 pg (26-32)
[2016-06-05 06:44] LABS: ANION GAP 11.3 MEQ/L (5-15); BLOOD UREA NITROGEN 4 mg/dL (9-20); CHLORIDE 106 mEq/L (98-107); Carbon Dioxide 31.6 mEq/L (21-32); Glucose 96 MG/DL (70-110); MAGNESIUM 1.7 mg/dL (1.8-2.4); Potassium 3.2 mEq/L (3.5-5.1); SODIUM 146 mEq/L (136-145)
[2016-06-05] MEDS: IMODIUM 2 MG PO PRN ×3 (07:29→16:35)
[2016-06-05] MEDS: Glucophage 500 MG PO SCH ×2 (08:22→16:35)
[2016-06-05] MEDS: MAG-OX 400 PO SCH ×2 (11:01→22:24)
[2016-06-05] MEDS: Klor Con 10 MEQ PO SCH ×2 (11:01→22:24)
[2016-06-05] MEDS: ZOCOR 20MG PO SCH (11:02)
[2016-06-05] MEDS: Cozaar 50 MG PO SCH (11:02)
[2016-06-05] MEDS: Colace 100 MG PO SCH ×2 (11:03→22:23)
[2016-06-05] MEDS: Abilify 10 MG PO SCH (11:03)
[2016-06-05] MEDS: hydroDIURIL 25 MG PO SCH (11:03)
[2016-06-05] MEDS: Pepcid 20 MG VIAL IV SCH ×2 (11:04→22:24)
[2016-06-05] MEDS: LOPID 600 MG PO SCH ×2 (11:04→22:24)
[2016-06-05] MEDS: Lantus Insulin SQ SCH (11:34)
--- NOTE | 2016-06-05 14:23 | PCM.NOTE ---
Date and Time: 06/05/16 1417 Subjective Assessment: Her pain meds are controlling the pain. She is tolerating po. Still c/o pain when up walking. afebrile. Has had several episodes of diarrhea today - she states the immodium helps, but at home she would take 2 at a time. - Review of Systems Constitutional: No Fever Skin: Cellulitis, Other (wound) Objective Exam General Appearance: no apparent distress Neurologic Exam: alert, oriented x 3, cooperative Skin Exam: warm, dry Respiratory Exam: crackles/rales (R side, LL> UL), other (good air exchaneg), No rhonchi, No wheezing Cardiovascular Exam: regular rate/rhythm, normal heart sounds Gastrointestinal/Abdomen Exam: soft, No tenderness, No distention, No guarding Rectal Exam: other (dressing in place, R buttock) OBJECTIVE DATA Vital Signs: Vital Signs - 24 hr Temp Pulse Resp BP Pulse Ox 06/05/16 11:45 98.1 F 81 18 134/66 92 L 06/05/16 07:40 98 F 74 18 135/65 94 L 06/05/16 04:00 97.8 F 76 16 138/63 93 L 06/04/16 23:46 98.5 F 77 17 95 06/04/16 23:36 93 L 06/04/16 19:53 98.3 F 78 18 130/63 94 L 06/04/16 19:36 92 L 06/04/16 16:00 98.1 F 82 18 100/51 92 L Oxygen-Last 24 hours O2 Percentage 2 Liters = 28% Pain Assessment - Last Documented Pain Intensity 6 Pain Scale Used 0-10 Pain Scale Intake and Output: Intake & Output 06/03/16 06/04/16 06/05/16 06/06/16 11:59 11:59 11:59 11:59 Intake Total 2011 2101 3572 Balance 2011 2101 3572 Weight 69.717 kg Lab Results: Accuchecks Date 06/05/16 Date 06/04/16 Date 06/04/16 Time 07:30 Time 22:00 Time 16:30 Accucheck Value: 125 Accucheck Value: 99 Accucheck Value: 98 Accucheck Value: 82 Lab Results-Last 24 Hours 06/05/16 06/05/16 Range/Units 05:50 05:50 WBC 9.8 (4.0-10.5) K/mm3 RBC 3.68 L (4.1-5.4) M/mm3 Hgb 9.7 L (12.0-16.0) gm/dl Hct 30.7 L (35-47) % MCV 83.4 (78-100) fl MCH 26.3 (26-32) pg MCHC 31.6 L (32-36) g/dl RDW 14.9 H (11.5-14.0) % Plt Count 417 (150-450) K/mm3 MPV 8.9 (6-9.5) fl Sodium 146 H (136-145) mEq/L Potassium 3.2 L (3.5-5.1) mEq/L Chloride 106 (98-107) mEq/L Carbon Dioxide 31.6 (21-32) mEq/L Anion Gap 11.3 (5-15) MEQ/L BUN 4 L (9-20) mg/dL Creatinine 0.55 (0.55-1.30) mg/dl Estimated GFR > 60 ML/MIN Glucose 96 (70-110) MG/DL Calcium 8.2 L (8.5-10.1) mg/dL Magnesium 1.7 L (1.8-2.4) mg/dL Multi-Disciplinary Progress Notes: Multi-Disciplinary Progress Notes 06/05/16 10:20 Case Management Note by Hailey Pedraza DISCHARGE PLAN REVIEWED. NORMALLY LIVES HOME ALONE OR WITH HER SISTER IN LAW. PLAN TO DISCHARGE HOME TO PRE EPSIDODIC LEVEL OF CARE. STATES HER SISTER IN LAW CAN HELP HER AT HOME. PT HAS INITIATED FMLA FROM HER EMPLOYMENT. DENIES NEED AT THIS TIME FOR [facility] ON DISCHARGE. WILL CONTINUE TO MONITOR FOR ALL D/C NEEDS. Initialized on 06/05/16 10:20 - END OF NOTE Assessment/Plan (1) Abscess, gluteal, right Current Visit: Yes Status: Acute Assessment & Plan: She is on merropenem after cx revealed ESBL e. coli. May consider wound vac placement after evaluated again by PT on Tuesday. PT has continued to come to the hospital over the weekend, did change the dressing today and noted it's looking better after debridement yesterday. Code(s): L02.31 - CUTANEOUS ABSCESS OF BUTTOCK (2) Fluid overload Current Visit: Yes Status: Acute Assessment & Plan: likely, crackles in R lung delgado. Will try 1 dose of lasix IV, if persistent will get CXR. Pt w/o sx. 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 diff neg. will increase immodium to 2. Code(s): R19.7 - DIARRHEA, UNSPECIFIED (5) Leukocytosis Current Visit: Yes Status: Resolved Assessment & Plan: resolved. Code(s): D72.829 - ELEVATED WHITE BLOOD CELL COUNT, UNSPECIFIED (6) Hypokalemia Current Visit: Yes Status: Acute Assessment & Plan: increased potassium to 20 mEq BID. Code(s): E87.6 - HYPOKALEMIA
[2016-06-05] MEDS: Lasix 20 MG/2 ML IV SCH (15:29)
[2016-06-05] MEDS: Sodium Chloride 0.9% 1000 ML 1,000 ML IV SCH (15:29)
[2016-06-05] MEDS: ZOLOFT 50 MG TABLET PO SCH (22:24)
[2016-06-05] MEDS: QUESTRAN Light 4 GM Packet PO SCH (22:45)
[2016-06-06] MEDS: Norco 10/325 MG Tablet PO PRN (04:55)
[2016-06-06] MEDS: Merrem 1 GM 1 G in Sodium Chloride 100ML MINI-BAG PLUS 100 ML IV SCH ×3 (05:06→22:35)
[2016-06-06 05:54] LABS: Mean Cell Volume 84.4 fl (78-100); Platelet Count 483 K/mm3 (150-450); Red Blood Count 3.77 M/mm3 (4.1-5.4); Red Cell Distribution Width 14.9 % (11.5-14.0); White Blood Count 9.7 K/mm3 (4.0-10.5)
[2016-06-06 06:03] LABS: Mean Corpuscular Hemoglobin 26.2 pg (26-32)
[2016-06-06 06:15] LABS: ANION GAP 10.1 MEQ/L (5-15); BLOOD UREA NITROGEN 4 mg/dL (9-20); CHLORIDE 105 mEq/L (98-107); Glucose 93 MG/DL (70-110); Potassium 3.4 mEq/L (3.5-5.1); SODIUM 144 mEq/L (136-145)
[2016-06-06] MEDS: VANCOCIN 1 GM VIAL*** 1.5 GM in Sodium Chloride 0.9% 500 ML 500 ML IV SCH ×2 (06:21→17:10)
[2016-06-06 07:02] LABS: Total Cells Counted 100
[2016-06-06 07:03] LABS: Platelet Estimate NORMAL (NORMAL)
[2016-06-06] MEDS: DILAUDID 1 MG/1ML PCA IV PRN ×2 (07:23→20:00)
[2016-06-06] MEDS: Glucophage 500 MG PO SCH ×2 (07:52→17:10)
[2016-06-06] MEDS: IMODIUM 2 MG PO PRN ×3 (08:22→16:27)
[2016-06-06] MEDS: Abilify 10 MG PO SCH (09:42)
[2016-06-06] MEDS: QUESTRAN Light 4 GM Packet PO SCH ×2 (09:43→22:45)
[2016-06-06] MEDS: Colace 100 MG PO SCH (09:45)
[2016-06-06] MEDS: Klor Con 10 MEQ PO SCH ×2 (09:45→22:33)
[2016-06-06] MEDS: Lasix 20 MG/2 ML IV SCH (09:45)
[2016-06-06] MEDS: hydroDIURIL 25 MG PO SCH (09:46)
[2016-06-06] MEDS: Pepcid 20 MG VIAL IV SCH ×2 (09:46→22:35)
[2016-06-06] MEDS: Cozaar 50 MG PO SCH (09:46)
[2016-06-06] MEDS: MAG-OX 400 PO SCH ×2 (09:46→22:35)
[2016-06-06] MEDS: Lantus Insulin SQ SCH (09:47)
[2016-06-06] MEDS: LOPID 600 MG PO SCH ×2 (09:48→22:34)
[2016-06-06] MEDS: ZOCOR 20MG PO SCH (09:51)
[2016-06-06] MEDS: Zofran 4 MG/2 ML VIAL IV PRN ×2 (09:57→16:27)
[2016-06-06] MEDS: MORPHINE SULFATE 10 MG/ML IV PRN (12:15)
--- NOTE | 2016-06-06 12:37 | PCM.NOTE ---
Date and Time: 06/06/16 1231 Subjective Assessment: Pt's wound is overall looking better but the inferior defect is very near the rectum and pt continues to have diarrhea. Dressing changed this morning and full of stool. Pt's appetite is decreased, but tolerating po. Dressing changes are still quite painful. - Review of Systems Constitutional: No Fever Abdominal/Gastrointestinal: Diarrhea Objective Exam General Appearance: moderate distress (during dressing change) Neurologic Exam: alert, oriented x 3, cooperative Skin Exam: other Respiratory Exam: normal breath sounds, crackles/rales (faint R base), No rhonchi, No wheezing Cardiovascular Exam: regular rate/rhythm, normal heart sounds, murmur Rectal Exam: other (R buttock, superior lesion with clean base. Inferior lesion with stool grossly present. superior to gluteal cleft no induration/ erythema.) OBJECTIVE DATA Vital Signs: Vital Signs - 24 hr Temp Pulse Resp BP Pulse Ox 06/06/16 11:24 98.1 F 79 18 115/56 94 L 06/06/16 08:00 98.3 F 86 18 121/59 93 L 06/06/16 04:00 98.0 F 70 18 131/74 94 L 06/06/16 00:00 97.8 F 82 20 143/65 96 06/05/16 20:00 98.3 F 77 15 121/61 94 L 06/05/16 17:31 96 06/05/16 16:00 98.4 F 78 18 117/58 96 Pain Assessment - Last Documented Pain Intensity 5 Pain Scale Used 0-10 Pain Scale Intake and Output: Intake & Output 06/04/16 06/05/16 06/06/16 06/07/16 11:59 11:59 11:59 11:59 Intake Total 2101 3572 1996 Balance 2101 3572 1996 Lab Results: Accuchecks Date 06/06/16 Date 06/05/16 Date 06/05/16 Time 07:56 Time 22:00 Time 16:30 Accucheck Value: 81 Accucheck Value: 97 Accucheck Value: 135 Lab Results-Last 24 Hours 06/06/16 06/06/16 Range/Units 05:20 05:20 WBC 9.7 (4.0-10.5) K/mm3 RBC 3.77 L (4.1-5.4) M/mm3 Hgb 9.9 L (12.0-16.0) gm/dl Hct 31.8 L (35-47) % MCV 84.4 (78-100) fl MCH 26.2 (26-32) pg MCHC 31.1 L (32-36) g/dl RDW 14.9 H (11.5-14.0) % Plt Count 483 H (150-450) K/mm3 MPV 9.0 (6-9.5) fl Segmented Neutrophils 68 H (36.0-66.0) % Lymphocytes (Manual) 30 (24-44) % Monocytes (Manual) 2 (0.0-12.0) % Differential Comment NORMAL Platelet Estimate NORMAL (NORMAL) Sodium 144 (136-145) mEq/L Potassium 3.4 L (3.5-5.1) mEq/L Chloride 105 (98-107) mEq/L Carbon Dioxide 32.0 (21-32) mEq/L Anion Gap 10.1 (5-15) MEQ/L BUN 4 L (9-20) mg/dL Creatinine 0.53 L (0.55-1.30) mg/dl Estimated GFR > 60 ML/MIN Glucose 93 (70-110) MG/DL Calcium 8.3 L (8.5-10.1) mg/dL TSH 3rd Generation 2.476 (0.358-3.740) mIU/L Assessment/Plan (1) Abscess, gluteal, right Current Visit: Yes Status: Acute Assessment & Plan: Overall improved but the healing is limited by the constant presence of stool. Discussed rectal tube with pt and she agrees. Code(s): L02.31 - CUTANEOUS ABSCESS OF BUTTOCK (2) Fluid overload Current Visit: Yes Status: Acute Assessment & Plan: will give lasix daily. Code(s): E87.70 - FLUID OVERLOAD, UNSPECIFIED (3) IDDM (insulin dependent diabetes mellitus) Current Visit: Yes Status: Acute Assessment & Plan: stable; all BS under 140 at current insulin dose. Code(s): E11.9 - TYPE 2 DIABETES MELLITUS WITHOUT COMPLICATIONS; Z79.4 - NURSING HOME (CURRENT) USE OF INSULIN (4) Diarrhea Current Visit: Yes Status: Acute Qualifiers: Diarrhea type: unspecified type Qualified Code(s): R19.7 - Diarrhea, unspecified Assessment & Plan: Last checked for c. diff 2 days ago (06/04/16) - will check periodically. I think right now just a side effect of the antibiotics. Persistent despite maximum doses of immodium and questran. Rectal tube as above. Code(s): R19.7 - DIARRHEA, UNSPECIFIED (5) Leukocytosis Current Visit: Yes Status: Resolved Code(s): D72.829 - ELEVATED WHITE BLOOD CELL COUNT, UNSPECIFIED (6) Hypokalemia Current Visit: Yes Status: Acute Assessment & Plan: mild, persistent - po repletion. Code(s): E87.6 - HYPOKALEMIA
[2016-06-06] MEDS: ZOLOFT 50 MG TABLET PO SCH (22:36)
[2016-06-07] MEDS: Merrem 1 GM 1 G in Sodium Chloride 100ML MINI-BAG PLUS 100 ML IV SCH ×3 (05:26→22:29)
[2016-06-07] MEDS ORDERED: TROUGH DRUG LEVELS IJ ONE (05:30)
[2016-06-07] MEDS: VANCOCIN 1 GM VIAL*** 1.5 GM in Sodium Chloride 0.9% 500 ML 500 ML IV SCH ×2 (06:25→17:06)
[2016-06-07] MEDS: Norco 10/325 MG Tablet PO PRN ×2 (06:31→10:34)
[2016-06-07] MEDS: Cozaar 50 MG PO SCH (07:51)
[2016-06-07] MEDS: Glucophage 500 MG PO SCH ×2 (07:51→17:06)
[2016-06-07] MEDS: hydroDIURIL 25 MG PO SCH (07:51)
[2016-06-07] MEDS: Abilify 10 MG PO SCH (07:51)
[2016-06-07] MEDS: Lasix 20 MG/2 ML IV SCH (07:52)
[2016-06-07] MEDS: Pepcid 20 MG VIAL IV SCH ×2 (07:52→22:29)
[2016-06-07] MEDS: Klor Con 10 MEQ PO SCH ×2 (07:52→21:18)
[2016-06-07] MEDS: MAG-OX 400 PO SCH ×2 (07:53→21:18)
[2016-06-07] MEDS: Lantus Insulin SQ SCH (07:53)
[2016-06-07] MEDS: QUESTRAN Light 4 GM Packet PO SCH ×2 (07:54→22:29)
[2016-06-07] MEDS: LOPID 600 MG PO SCH ×2 (07:57→21:18)
[2016-06-07] MEDS: ZOCOR 20MG PO SCH (07:57)
--- NOTE | 2016-06-07 08:33 | PCM.NOTE ---
Date and Time: 06/07/16830 Subjective Assessment: patient reports she feels like her abscess is improving, she apparently refused rectal tube after discussion with Dr Brown as it is not in place. Objective Exam General Appearance: no apparent distress, alert Respiratory Exam: normal breath sounds, lungs clear, No respiratory distress Cardiovascular Exam: regular rate/rhythm, normal heart sounds Gastrointestinal/Abdomen Exam: soft, No tenderness, No mass Extremity Exam: other (2 deep open areas near gluteal cleft on right buttocks, no obvious purulence) OBJECTIVE DATA Vital Signs: Vital Signs - 24 hr Temp Pulse Resp BP Pulse Ox 06/07/16 07:23 98.3 F 73 17 128/64 95 06/07/16 04:00 98.1 F 78 16 113/55 94 L 06/07/16 00:00 98.3 F 82 15 109/58 96 06/06/16 20:00 98.2 F 73 18 134/61 96 06/06/16 16:00 98 F 80 18 116/60 95 06/06/16 11:24 98.1 F 79 18 115/56 94 L 06/06/16 11:23 95 Pain Assessment - Last Documented Pain Intensity 5 Pain Scale Used 0-10 Pain Scale Intake and Output: Intake & Output 06/04/16 06/05/16 06/06/16 06/07/16 11:59 11:59 11:59 11:59 Intake Total 2101 3572 1996 1761 Balance 2101 3572 1996 1760 Lab Results: Accuchecks Date 06/06/16 Date 06/06/16 Time 16:30 Time 11:30 Accucheck Value: 79 Accucheck Value: 81 Accucheck Value: 84 Lab Results-Last 24 Hours 06/07/16 Range/Units 05:18 Vancomycin Trough 17.8 (10-20) UG/ML Multi-Disciplinary Progress Notes: Multi-Disciplinary Progress Notes 06/06/16 13:39 Physical Therapy Note by Zuly Calabrese SEE PICTURE DOCUMENTATION IN HARD CHART. POC DISCUSSED AT LENGTH WITH PCP. Initialized on 06/06/16 13:39 - END OF NOTE Assessment/Plan (1) Abscess, gluteal, right Current Visit: Yes Status: Acute Assessment & Plan: continue current management, wound care per PT. 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
[2016-06-07] MEDS: MORPHINE SULFATE 10 MG/ML IV PRN (10:35)
[2016-06-07] MEDS: DILAUDID 1 MG/1ML PCA IV PRN (17:12)
[2016-06-07] MEDS: IMODIUM 2 MG PO PRN (21:19)
[2016-06-07] MEDS: ZOLOFT 50 MG TABLET PO SCH (21:19)
[2016-06-08] MEDS: Norco 10/325 MG Tablet PO PRN (00:19)
[2016-06-08] MEDS: Merrem 1 GM 1 G in Sodium Chloride 100ML MINI-BAG PLUS 100 ML IV SCH ×3 (05:23→21:29)
[2016-06-08 05:49] LABS: Mean Cell Volume 84.5 fl (78-100); Mean Platelet Volume 8.8 fl (6-9.5); Platelet Count 566 K/mm3 (150-450); Red Blood Count 3.94 M/mm3 (4.1-5.4); Red Cell Distribution Width 14.7 % (11.5-14.0); White Blood Count 8.2 K/mm3 (4.0-10.5)
[2016-06-08 05:52] LABS: Mean Corpuscular Hemoglobin 26.3 pg (26-32)
[2016-06-08 06:03] LABS: ANION GAP 9.3 MEQ/L (5-15); BLOOD UREA NITROGEN 7 mg/dL (9-20); CHLORIDE 109 mEq/L (98-107); Carbon Dioxide 31.8 mEq/L (21-32); Glucose 69 MG/DL (70-110); SODIUM 145 mEq/L (136-145)
[2016-06-08] MEDS: VANCOCIN 1 GM VIAL*** 1.5 GM in Sodium Chloride 0.9% 500 ML 500 ML IV SCH (06:49)
[2016-06-08 07:12] LABS: ATYPICAL LYMPHS 1 %; BAND 1 % (0.0-2.0); Eosinophil 1 % (0.00-3.0); Platelet Estimate INCREASED (NORMAL); Total Cells Counted 100
[2016-06-08 07:13] LABS: ANISOCYTOSIS 2+; Polychromasia 1+
[2016-06-08 07:14] LABS: Basophilic Stippling 1+
[2016-06-08] MEDS: Glucophage 500 MG PO SCH ×2 (07:51→17:16)
--- NOTE | 2016-06-08 08:46 | PCM.NOTE ---
Date and Time: 06/08/16 0842 Subjective Assessment: patient inquiring about wound vac, doing better. less stool issues, wound is stable Objective Exam General Appearance: no apparent distress, alert Skin Exam: other (deep ulceration to fat layer in right buttocks, 1 small area and 1 larger area. minimal purulence, no erythema) Respiratory Exam: normal breath sounds, lungs clear, No respiratory distress Cardiovascular Exam: regular rate/rhythm, normal heart sounds Gastrointestinal/Abdomen Exam: soft, No tenderness, No mass OBJECTIVE DATA Vital Signs: Vital Signs - 24 hr Temp Pulse Resp BP Pulse Ox 06/08/16 07:57 98.1 F 82 17 107/53 94 L 06/08/16 05:12 94 L 06/08/16 04:00 97.7 F 76 17 113/55 94 L 06/08/16 01:10 93 L 06/07/16 23:59 98.0 F 78 19 128/54 93 L 06/07/16 21:12 95 06/07/16 19:27 98 F 72 18 117/61 95 06/07/16 17:12 94 L 06/07/16 16:00 97.8 F 77 18 109/58 94 L 06/07/16 11:27 98.3 F 83 18 114/59 92 L Pain Assessment - Last Documented Pain Intensity 5 Pain Scale Used 0-10 Pain Scale Intake and Output: Intake & Output 06/05/16 06/06/16 06/07/16 06/08/16 11:59 11:59 11:59 11:59 Intake Total 3572 1996 3617 7 Balance 3572 1996 6712 7 Lab Results: Accuchecks Date 06/07/16 Date 06/07/16 Time 16:30 Time 11:30 Accucheck Value: 103 Accucheck Value: 112 Accucheck Value: 106 Lab Results-Last 24 Hours 06/08/16 06/08/16 Range/Units 05:20 05:20 WBC 8.2 (4.0-10.5) K/mm3 RBC 3.94 L (4.1-5.4) M/mm3 Hgb 10.4 L (12.0-16.0) gm/dl Hct 33.3 L (35-47) % MCV 84.5 (78-100) fl MCH 26.3 (26-32) pg MCHC 31.2 L (32-36) g/dl RDW 14.7 H (11.5-14.0) % Plt Count 566 H (150-450) K/mm3 MPV 8.8 (6-9.5) fl Segmented Neutrophils 66 (36.0-66.0) % Band Neutrophils 1 (0.0-2.0) % Lymphocytes (Manual) 26 (24-44) % Monocytes (Manual) 5 (0.0-12.0) % Eosinophils (Manual) 1 (0.00-3.0) % Atypical Lymphocytes 1 % Platelet Estimate INCREASED (NORMAL) Polychromasia 1+ Basophilic Stippling 1+ Anisocytosis 2+ Sodium 145 (136-145) mEq/L Potassium 5.0 (3.5-5.1) mEq/L Chloride 109 H (98-107) mEq/L Carbon Dioxide 31.8 (21-32) mEq/L Anion Gap 9.3 (5-15) MEQ/L BUN 7 L (9-20) mg/dL Creatinine 0.55 (0.55-1.30) mg/dl Estimated GFR > 60 ML/MIN Glucose 69 L (70-110) MG/DL Calcium 8.4 L (8.5-10.1) mg/dL Multi-Disciplinary Progress Notes: Multi-Disciplinary Progress Notes 06/07/16 14:30 (created 06/07/16 15:27) Case Management Note by Kathy Galo DR. ROUNDED AND EVALUATED. DISCUSSED WITH STAFF THAT HE WAS IN AGREEMENT FOR WOUND VAC. PT REPORTS THAT SHE IS WANTING TO BE TRANSFERRED FOR WOUND CARE/WOUND SPECIALISTS AND IDEALLY WOUND VAC. DECLINED ADDNL NEEDS AT PRESENT. WILL CONTINUE TO FOLLOW AND ASSESS FOR ALL DC NEEDS. Initialized on 06/07/16 15:27 - END OF NOTE 06/07/16 14:23 Nutrition Note by Shamika Mccarthy F/u Note: 1800 ADA diet con't with 25-100% po intake. Labs 3/5 = glu wnl, K+ 3.4, BUN 4, Cr 0.5. No recent weight available. goal #1 met, #2 not met - patient with 2 meals <75%. Goals and diet to con't. Will monitor and f/u prn. T.ROBBIE Mccarthy Initialized on 06/07/16 14:23 - END OF NOTE Assessment/Plan (1) Abscess, gluteal, right Current Visit: Yes Status: Acute Assessment & Plan: culture E coli ESBL, sens to meropenem. d/c vanc. attempt to control pain with po meds Code(s): L02.31 - CUTANEOUS ABSCESS OF BUTTOCK (2) Hypokalemia Current Visit: Yes Status: Acute Assessment & Plan: stop po potassium Code(s): E87.6 - HYPOKALEMIA (3) IDDM (insulin dependent diabetes mellitus) Current Visit: Yes Status: Acute Code(s): E11.9 - TYPE 2 DIABETES MELLITUS WITHOUT COMPLICATIONS; Z79.4 - ASSISTED (CURRENT) USE OF INSULIN
[2016-06-08] MEDS: PERCOCET TABLET 5/325MG PO PRN ×3 (10:27→19:37)
[2016-06-08] MEDS: MAG-OX 400 PO SCH ×2 (10:28→21:30)
[2016-06-08] MEDS: hydroDIURIL 25 MG PO SCH (10:28)
[2016-06-08] MEDS: Abilify 10 MG PO SCH (10:28)
[2016-06-08] MEDS: ZOCOR 20MG PO SCH (10:28)
[2016-06-08] MEDS: Lasix 20 MG/2 ML IV SCH (10:35)
[2016-06-08] MEDS: Pepcid 20 MG VIAL IV SCH ×2 (10:37→21:31)
[2016-06-08] MEDS: Lantus Insulin SQ SCH (10:38)
[2016-06-08] MEDS: Cozaar 50 MG PO SCH (10:38)
[2016-06-08] MEDS: LOPID 600 MG PO SCH ×2 (10:38→21:31)
[2016-06-08] MEDS: QUESTRAN Light 4 GM Packet PO SCH ×2 (10:48→21:46)
[2016-06-08] MEDS: NovoLOG Insulin SQ PRN ×2 (17:16→22:24)
[2016-06-08] MEDS ORDERED: TORAdol 30 mg Injection IV PRN (20:03)
[2016-06-08] MEDS ORDERED: PERCOCET TABLET 5/325MG PO ONE (20:05)
[2016-06-08] MEDS: IMODIUM 2 MG PO PRN (21:30)
[2016-06-08] MEDS: ZOLOFT 50 MG TABLET PO SCH (21:30)
[2016-06-09] MEDS: OXYCODONE-ACETAMINOPHEN 10-325 PO PRN ×6 (00:09→22:39)
[2016-06-09 06:03] LABS: Mean Cell Volume 83.6 fl (78-100); Mean Platelet Volume 8.9 fl (6-9.5); Platelet Count 674 K/mm3 (150-450); Red Cell Distribution Width 14.6 % (11.5-14.0); White Blood Count 10.9 K/mm3 (4.0-10.5)
[2016-06-09 06:06] LABS: Mean Corpuscular Hemoglobin 26.3 pg (26-32)
[2016-06-09] MEDS: Merrem 1 GM 1 G in Sodium Chloride 100ML MINI-BAG PLUS 100 ML IV SCH ×3 (06:10→21:24)
[2016-06-09 06:31] LABS: ANION GAP 13.2 MEQ/L (5-15); BLOOD UREA NITROGEN 13 mg/dL (9-20); CHLORIDE 101 mEq/L (98-107); Carbon Dioxide 29.2 mEq/L (21-32); Glucose 120 MG/DL (70-110); Potassium 4.3 mEq/L (3.5-5.1); SODIUM 139 mEq/L (136-145)
[2016-06-09] MEDS: Glucophage 500 MG PO SCH ×2 (07:32→16:38)
[2016-06-09 07:45] LABS: BAND 1 % (0.0-2.0); Basophil 1 % (0.0-1.0); Eosinophil 2 % (0.00-3.0); Total Cells Counted 100
[2016-06-09 07:46] LABS: Platelet Estimate NORMAL (NORMAL); Polychromasia 1+
--- NOTE | 2016-06-09 08:39 | PCM.NOTE ---
Date and Time: 06/09/16834 Subjective Assessment: patient still having significant pain control issues, doesn't appear as though anything is working for her at this time. taking percocet 10/325 q4 hrs prn and toradol Objective Exam General Appearance: no apparent distress, alert Skin Exam: other (ulceration x 2 right buttocks, slight purlence, mild erythema) Respiratory Exam: normal breath sounds, lungs clear, No respiratory distress Cardiovascular Exam: regular rate/rhythm, normal heart sounds Gastrointestinal/Abdomen Exam: soft, No tenderness, No mass OBJECTIVE DATA Vital Signs: Vital Signs - 24 hr Temp Pulse Resp BP Pulse Ox 06/09/16 08:00 98.2 F 81 18 123/65 96 06/09/16 04:00 97.9 F 81 18 110/64 95 06/09/16 00:00 97.9 F 85 20 120/61 95 06/08/16 20:00 98.1 F 73 16 129/60 96 06/08/16 16:00 97.5 F 70 20 111/55 95 06/08/16 12:00 98.1 F 79 18 109/56 94 L 06/08/16 09:12 94 L Pain Assessment - Last Documented Pain Intensity 7 Pain Scale Used 0-10 Pain Scale Intake and Output: Intake & Output 06/06/16 06/07/16 06/08/16 06/09/16 11:59 11:59 11:59 11:59 Intake Total 1996 6655 2106 257 Balance 1996 6762 4127 183 Lab Results: Accuchecks Date 06/09/16 Date 06/08/16 Date 06/08/16 Time 22:00 Time 16:30 Time 11:30 Accucheck Value: 197 Accucheck Value: 172 Accucheck Value: 107 Lab Results-Last 24 Hours 06/08/16 06/09/16 06/09/16 Range/Units 05:20 05:36 05:36 WBC 8.2 10.9 H (4.0-10.5) K/mm3 RBC 3.94 L 4.40 (4.1-5.4) M/mm3 Hgb 10.4 L 11.6 L (12.0-16.0) gm/dl Hct 33.3 L 36.8 (35-47) % MCV 84.5 83.6 (78-100) fl MCH 26.3 26.3 (26-32) pg MCHC 31.2 L 31.5 L (32-36) g/dl RDW 14.7 H 14.6 H (11.5-14.0) % Plt Count 566 H 674 H (150-450) K/mm3 MPV 8.8 8.9 (6-9.5) fl Segmented Neutrophils 66 52 (36.0-66.0) % Band Neutrophils 1 1 (0.0-2.0) % Lymphocytes (Manual) 26 41 (24-44) % Monocytes (Manual) 5 3 (0.0-12.0) % Eosinophils (Manual) 1 2 (0.00-3.0) % Basophils (Manual) 1 (0.0-1.0) % Differential Comment ABNORMAL ABNORMAL Atypical Lymphocytes 1 % Platelet Estimate INCREASED NORMAL (NORMAL) Polychromasia 1+ 1+ Basophilic Stippling 1+ Anisocytosis 2+ Sodium 139 (136-145) mEq/L Potassium 4.3 (3.5-5.1) mEq/L Chloride 101 (98-107) mEq/L Carbon Dioxide 29.2 (21-32) mEq/L Anion Gap 13.2 (5-15) MEQ/L BUN 13 (9-20) mg/dL Creatinine 0.76 (0.55-1.30) mg/dl Estimated GFR > 60 ML/MIN Glucose 120 H (70-110) MG/DL Calcium 8.9 (8.5-10.1) mg/dL Multi-Disciplinary Progress Notes: Multi-Disciplinary Progress Notes 06/08/16 08:53 Case Management Note by Kathy Galo DR. ROUNDED AND EVALUATED. PLAN TO CHANGE ALL MEDS TO PO TODAY. SEE IF PO PAIN MEDS MANAGE PAIN. APPT MADE WITH [facility], June AT 8:00 AM. WILL PLAN FOR POSSIBLE DC HOME TOMORROW WITH OUTPATIENT WOUND CARE AT [facility] UNTIL PT CAN BE SEEN AT [facility]. PERTINENT DOCUMENTS FAXED TO [facility]. Initialized on 06/08/16 08:53 - END OF NOTE Assessment/Plan (1) Abscess, gluteal, right Current Visit: Yes Status: Acute Assessment & Plan: continue meropenem for ESBL E coli, no change at this time. pain control issues persist, will keep another day and work on pain control, has appt at [facility] on Tuesday. 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
[2016-06-09] MEDS: Abilify 10 MG PO SCH (09:55)
[2016-06-09] MEDS: Cozaar 50 MG PO SCH (09:57)
[2016-06-09] MEDS: Lantus Insulin SQ SCH (09:58)
[2016-06-09] MEDS: hydroDIURIL 25 MG PO SCH (09:58)
[2016-06-09] MEDS: Pepcid 20 MG VIAL IV SCH ×2 (09:59→21:24)
[2016-06-09] MEDS: ZOCOR 20MG PO SCH (10:00)
[2016-06-09] MEDS: QUESTRAN Light 4 GM Packet PO SCH ×2 (10:00→21:29)
[2016-06-09] MEDS: Lasix 20 MG/2 ML IV SCH (10:02)
[2016-06-09] MEDS: MAG-OX 400 PO SCH ×2 (10:02→21:23)
[2016-06-09] MEDS: LOPID 600 MG PO SCH ×2 (10:03→21:23)
[2016-06-09] MEDS: IMODIUM 2 MG PO PRN (12:15)
[2016-06-09] MEDS: MOTRIN 600 MG PO PRN ×2 (12:15→22:39)
[2016-06-09] MEDS: ZOLOFT 50 MG TABLET PO SCH (21:24)
[2016-06-10] MEDS: Merrem 1 GM 1 G in Sodium Chloride 100ML MINI-BAG PLUS 100 ML IV SCH (05:38)
[2016-06-10] MEDS: OXYCODONE-ACETAMINOPHEN 10-325 PO PRN ×2 (06:28→10:38)
[2016-06-10 07:32] VITALS: BP 118/59; PULSE 99; O2SAT 98
--- NOTE | 2016-06-10 07:54 | PCM.DS ---
Discharge Summary Date of Admission: 05/31/16 03:44 Admitting Physician: ANTONIO NAVARRETE Primary Care Provider: JANE BROWN Allergies Allergies lisinopril Allergy (Verified 05/31/16 01:30) Hospital Summary - Hospital Course Hospital Course: Pt admitted with R buttock abscess, I&D done by surgery with extensive debridement. ESBL positive so antibiotics changed from vancomycin and zosyn to vancomycin and meropenem. PT changed dressings and debrided daily. 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 She has had some diarrhea throughout her stay - c. diff negative, unctonrolled initially with immodium and questran. The diarrhea has decreased. She is up out of bed. Tolerating po. She did have some fluid overload in the middle of her stay, resolved with lasix. - Vitals & Intake/Output Vital Signs: Vital Signs Temperature 97.8 F 06/10/16 04:00 Pulse Rate 88 06/10/16 04:00 Respiratory Rate 18 06/10/16 04:00 Blood Pressure 117/63 06/10/16 04:00 O2 Sat by Pulse Oximetry 97 06/10/16 04:00 Oxygen-Last Documented O2 Percentage 2 Liters = 28% Intake & Output: Intake & Output 06/07/16 06/08/16 06/09/16 06/10/16 11:59 11:59 11:59 11:59 Intake Total 5781 2105 700 1000 Balance 5781 2105 700 1000 - Lab Result Diagrams: 06/09/16 05:36 06/09/16 05:36 Lab Results-Last 24 Hrs: Accuchecks Date 06/09/16 Date 06/09/16 Date 06/09/16 Time 22:00 Time 16:30 Time 11:30 Accucheck Value: 130 Accucheck Value: 161 Accucheck Value: 171 Lab Results-Last 24 Hours 06/09/16 06/09/16 Range/Units 05:00 05:36 WBC 10.9 H (4.0-10.5) K/mm3 RBC 4.40 (4.1-5.4) M/mm3 Hgb 11.6 L (12.0-16.0) gm/dl Hct 36.8 (35-47) % MCV 83.6 (78-100) fl MCH 26.3 (26-32) pg MCHC 31.5 L (32-36) g/dl RDW 14.6 H (11.5-14.0) % Plt Count 674 H (150-450) K/mm3 MPV 8.9 (6-9.5) fl Segmented Neutrophils 52 (36.0-66.0) % Band Neutrophils 1 (0.0-2.0) % Lymphocytes (Manual) 41 (24-44) % Monocytes (Manual) 3 (0.0-12.0) % Eosinophils (Manual) 2 (0.00-3.0) % Basophils (Manual) 1 (0.0-1.0) % Differential Comment ABNORMAL Platelet Estimate NORMAL (NORMAL) Polychromasia 1+ Hemoglobin A1c 12.7 H (4.5-6.2) Micro Results-Entire Visit: Microbiology 05/31/16 16:22 Gram Stain - Final Buttock - Right Abscess Culture - Final Escherichia Coli Accuchecks Date 06/09/16 Date 06/09/16 Date 06/09/16 Time 22:00 Time 16:30 Time 11:30 Accucheck Value: 130 Accucheck Value: 161 Accucheck Value: 171 - Procedures and Test Procedures and Tests throughout Hospitalization: Therapy Orders & Screens 05/31/16 04:24 OT Screen per Nursing Assess ONCE Comment: Protocol Order Physician Instructions: Greater than 3 points order OT Admission Screening Reason For Exam: Triggered on Admission Diagnosis: R gluteal abcess Open Wound/Cellutlitis/Pressure Ulcers: Yes Acute Fx/ORIF/Change in wt bearing status: No Severe MUSCULOSKELETAL pain: No ADL Dysfunction: No Acute CVA w/Hemiparesis/Hemiplegia: No Decreased Functional Mobility/Strength: No Sprain/Strain: No Acute Post-op Mobility Dysfunction: No Total Points: 5 PT Screen per Nursing Assess ONCE Comment: Protocol Order Physician Instructions: Greater than 3 points order PT Admission Screenin Reason For Exam: Triggered on Admission Diagnosis: R gluteal abcess Open Wound/Cellutlitis/Pressure Ulcers: Yes Acute Fx/ORIF/Change in wt bearing status: No Severe MUSCULOSKELETAL pain: No ADL Dysfunction: No Acute CVA w/Hemiparesis/Hemiplegia: No Decreased Functional Mobility/Strength: No Sprain/Strain: No Acute Post-op Mobility Dysfunction: No Total Points: 5 05/31/16 19:06 Oxygen NASAL CANNULA 2 lpm Comment: Diagnosis: R gluteal abcess 06/02/16 10:42 PT Eval & Treat ( Order) ROUTINE Evaluate: Yes Treat: Yes Reason for Eval:: abscess Diagnosis: R gluteal abcess 06/03/16 08:25 Incentive Spirometry Assessmen UD Comment: Diagnosis: R gluteal abcess Discharge Exam General Appearance: no apparent distress Neurologic Exam: alert, oriented x 3, cooperative Skin Exam: normal color, warm, dry Respiratory Exam: normal breath sounds, lungs clear, No crackles/rales, No rhonchi, No wheezing Cardiovascular Exam: regular rate/rhythm, normal heart sounds, No murmur Rectal Exam: deferred (dressing in place) Final Diagnosis/Problem List - Final Discharge Diagnosis/Problem (1) Abscess, gluteal, right Current Visit: Yes Status: Acute Assessment & Plan: Doing much better. Has been on IV vancomycin and meropenem - has received 6d of meropenem. Surgery following. Plan is to d/c home today on po bactrim. See [facility] on Tuesday (4d) for wound vac placement. Will see PT daily until then for dressing changes. RTC with Dr. Brown in 1 wk. (2) Fluid overload Current Visit: Yes Status: Resolved (3) IDDM (insulin dependent diabetes mellitus) Current Visit: Yes Status: Acute Assessment & Plan: Doing well, home on usual dose of insulin. (4) Diarrhea Current Visit: Yes Status: Acute Assessment & Plan: improving. Side effect of antibiotics, likely. If persistent recheck for c. diff. (5) Hypokalemia Current Visit: Yes Status: Acute - Discharge Disposition: Home, Self-Care Condition: Good Prescriptions: New Magnesium Oxide 400 mg [Mag-Ox 400] 400 mg PO BID #60 tablet Oxycodone / APAP 10/325 mg [Oxycodone-Acetaminophen 10-325] 1 tab PO Q4H PRN PRN #60 tablet PRN Reason: Pain Continue Insulin Detemir [Levemir] 60 unit SQ HS Insulin Aspart [NovoLOG Insulin] 1 unit SQ UD Simvastatin 40 mg PO HS Sertraline HCl [Zoloft] 200 mg PO HS Losartan Potassium 25 mg PO DAILY Hydrochlorothiazide 25 mg [hydroDIURIL 25 MG] 25 mg PO DAILY Gemfibrozil 600 mg [Lopid 600 mg] 600 mg PO BID Aripiprazole [Abilify] 5 mg PO DAILY Metformin HCl 1000 mg [Glucophage 1000 MG] 1,000 mg PO BID Smz/Tmp Ds Tablet [Bactrim Ds Tablet] 1 udtab PO BID #20 tablet Instructions: Care for a Surgical Wound, Wound Infection Additional Instructions: YOU HAVE AN APPOINTMENT AT [facility] - ON June AT 8:00 AM. YOU MAY REACH THEM AT . Follow up with: ARI GUNTER [COURTESY STAFF] - 1 Week JANE BROWN [Primary Care Provider] - Forms: Patient Portal Information
[2016-06-10] MEDS: Glucophage 500 MG PO SCH (08:12)
[2016-06-10] MEDS: Cozaar 50 MG PO SCH (08:57)
[2016-06-10] MEDS: Abilify 10 MG PO SCH (08:57)
[2016-06-10] MEDS: Lantus Insulin SQ SCH (08:58)
[2016-06-10] MEDS: hydroDIURIL 25 MG PO SCH (08:58)
[2016-06-10] MEDS: Lasix 20 MG/2 ML IV SCH (08:59)
[2016-06-10] MEDS: LOPID 600 MG PO SCH (08:59)
[2016-06-10] MEDS: QUESTRAN Light 4 GM Packet PO SCH (09:00)
[2016-06-10] MEDS: ZOCOR 20MG PO SCH (09:00)
[2016-06-10] MEDS: Pepcid 20 MG VIAL IV SCH (09:00)
[2016-06-10] MEDS: MAG-OX 400 PO SCH (09:00)
== END 2016-06-10 11:55 | disposition home or self-care (01) | DRG 570 ==
LOC: ED 01:17 → MED SURG 03:44
PROVIDERS: ADMIT Family Medicine; ATTEND Family Medicine
PROC: 0JB70ZZ Excision of Back Subcutaneous Tissue and Fascia, Open Approach (ICD-10-PCS; principal; 2016-05-31)
DX: L02.31 Cutaneous abscess of buttock (principal); M72.6 Necrotizing fasciitis; E87.70 Fluid overload, unspecified; E11.9 Type 2 diabetes mellitus without complications; R19.7 Diarrhea, unspecified; E87.6 Hypokalemia; L03.317 Cellulitis of buttock; I10 Essential (primary) hypertension; F41.8 Other specified anxiety disorders; M19.90 Unspecified osteoarthritis, unspecified site; D72.829 Elevated white blood cell count, unspecified; Z79.4 Long term (current) use of insulin; Z79.899 Other long term (current) drug therapy
CPT/HCPCS: 00400; 36000; 36415; 80048; 80053; 80202; 82805; 82962; 83036; 83605; 83735; 83880; 84132; 84443; 85025; 85027; 87040; 87070; 87077; 87186; 87493; 88304; 90715; 90732; 93005; 94760; 96360; 96361; 96365; 96368; 96372; 96374; 96375; 96376; 99285; J0295; J0330; J1100; J1170; J1200; J1885; J1940; J2270; J2405; J2543; J2704; J3010; J3370; J3480

== ENCOUNTER 2016-10-13 11:02 | Inpatient (IN) | payer OTHER ==
[2016-10-13] MEDS ORDERED: Sodium Chloride 0.9% 10 ML FLUSH Syringe IV PRN (11:32)
[2016-10-13 12:08] LABS: BASOPHIL % 0.4 % (0.0-0.4); Eosinophil % 2.4 % (0.00-5.0); Granulocytes % 65.8 % (36.0-66.0); Lymphocytes % 26.5 % (24.0-44.0); Mean Cell Volume 78.9 fl (78-100); Mean Corpuscular Hemoglobin 26.6 pg (26-32); Mean Platelet Volume 9.9 fl (6-9.5); Monocytes % 4.9 % (0.0-12.0); Platelet Count 375 K/mm3 (150-450); Red Blood Count 4.74 M/mm3 (4.1-5.4); Red Cell Distribution Width 14.7 % (11.5-14.0); White Blood Count 11.8 K/mm3 (4.0-10.5)
[2016-10-13 12:50] LABS: ALBUMIN 3.8 g/dL (3.4-5.0); ALKALINE PHOSPHATASE 94 U/L (46-116); ANION GAP 13.9 MEQ/L (5-15); BLOOD UREA NITROGEN 13 mg/dL (9-20); CHLORIDE 99 mEq/L (98-107); Carbon Dioxide 28.6 mEq/L (21-32); Glucose 296 MG/DL (70-110); SGOT/AST 5 U/L (15-37); SGPT/ALT 7 U/L (12-78); SODIUM 138 mEq/L (136-145); Total Protein 8.4 gm/dL (6.4-8.2)
[2016-10-13] MEDS ORDERED: Zofran 4 MG/2 ML VIAL IV PRN (12:56)
[2016-10-13] MEDS: Sodium Chloride 0.9% 1000 ML 1,000 ML IV SCH (13:40)
[2016-10-13] MEDS: MORPHINE SULFATE 10 MG/ML IV PRN ×2 (13:43→17:45)
[2016-10-13] MEDS: MERREM 500MG 500 MG in Sodium Chloride 100ML MINI-BAG PLUS 100 ML IV SCH ×2 (14:01→22:13)
--- NOTE | 2016-10-13 17:25 | XRAY ---
Exam: AP upright portable chest film from 1620 hrs. on 10/13/2016. Comparison: None. Indication: PICC line placement. Findings: The film was obtained in a lordotic projection. There is minimal elevation of the right hemidiaphragm. The heart size is normal. I see a PICC line originating from the right. The tip appears to be located within the projection of the right atrium. I believe it is about 3 cm distal to the caval-atrial junction. I would recommend pulling the PICC line back 3 cm. No pneumothorax is seen. The lungs are well-expanded and appear clear. Pulmonary vascularity is normal. No pleural effusion is seen. No acute osseous process is seen. Impression: 1. Right-sided PICC line is seen with tip pointing inferiorly within the projection of the right atrium. I would recommend pulling the PICC line back 3 cm so that it will be in the projection of the caval atrial junction. 2. No acute cardiopulmonary process is seen. 3. Minimal elevation of the right hemidiaphragm.
--- NOTE | 2016-10-13 19:07 | PCM.HP ---
History of Present Illness - Chief Complaint Chief Complaint: Abscess w/cellulitis History of Present Illness: is a 51 year old diabetic female pt from [facility] with an abscess in the L groin. She first noticed it 6d ago and 4d ago she went to [facility] and saw Zion Davenport. She was put on po clindamycin, but it got bigger and today she saw Zion Davenport in the office and was admitted for failure of OP therapy. Of note, she is just healing from a large complicated abscess, ESBL + on her R buttock that required meropenem and a wound vac. She requested a PICC line and that was placed this afternoon. She's on IV meropenem. Surgery is doing I&D tomorrow. Her pain is not controlled with IV morphine, still 11/11. Maybe some fever at home. Edwige po. - Review of Systems Constitutional: Fever Skin: Cellulitis, Other (abscess) All Other Systems: Reviewed and Negative Medications & Allergies Home Medications: Home Medication List Aripiprazole [Abilify] 5 mg PO DAILY 10/21/15 [History Confirmed 10/13/16] Gemfibrozil 600 mg [Lopid 600 mg] 600 mg PO BID 10/21/15 [History Confirmed 10/13/16] Hydrochlorothiazide 25 mg [hydroDIURIL 25 MG] 25 mg PO DAILY 10/21/15 [ History Confirmed 10/13/16] Insulin Aspart [NovoLOG Insulin] 1 unit SQ 10/21/15 [History Confirmed ] Insulin Detemir [Levemir] 60 unit SQ 10/21/15 [History Confirmed 10/13/16] Losartan Potassium 25 mg PO DAILY 10/21/15 [History Confirmed 10/13/16] Metformin HCl 1000 mg [Glucophage 1000 MG] 1,000 mg PO BID 10/21/15 [History Confirmed 10/13/16] Sertraline HCl [Zoloft] 200 mg PO HS 10/21/15 [History Confirmed 10/13/16] Simvastatin 40 mg PO HS 10/21/15 [History Confirmed 10/13/16] Clindamycin HCl 300 mg PO BID 10/13/16 [History Confirmed 10/13/16] Allergies/Adverse Reactions: Allergies Allergy/AdvReac Type Severity Reaction Status Date / Time lisinopril Allergy Verified 07/08/16 18:04 - Past Medical History Past Medical History: Yes Neurological History: Peripheral Neuropathy ENT History: No Pertinent History Cardiac History: High Cholesterol, Hypertension Respiratory History: No Pertinent History Endocrine Medical History: Diabetes Type II Musculoskelatal History: No Pertinent History GI Medical History: No Pertinent History History: No Pertinent History Pyscho-Social History: Anxiety, Depression Reproductive Disorders: No Pertinent History Comment: Arthritis - Female History Hx Last Menstrual Period: hysterectomy Are you now?: No - Past Surgical History Past Surgical History: Yes Neuro Surgical History: No Pertinent History Cardiac History: No Pertinent History Respiratory Surgery: No Pertinent History GI Surgical History: Appendectomy Genitourinary Surgical Hx: No Pertinent History Musculskeletal Surgical Hx: No Pertinent History Female Surgical History: Hysterectomy Other Surgical History: breast reduction, I and D perirectal abcess - Social History Smoking Status: Never smoker Exposure to second hand smoke: No Alcohol: Occasionally Drug Use: none - Physical Exam Vital Signs: Vital Signs - 24 hr Temp Pulse Resp BP Pulse Ox 10/13/16 16:00 98.7 F 102 H 20 148/67 97 10/13/16 11:22 98.6 F 109 H 20 145/81 95 General Appearance: no apparent distress Neurologic Exam: alert, oriented x 3, cooperative Eye Exam: eyes nml inspection Neck Exam: normal inspection, supple Respiratory Exam: normal breath sounds, lungs clear, No crackles/rales, No rhonchi, No wheezing Cardiovascular Exam: regular rate/rhythm, normal heart sounds, No murmur Gastrointestinal/Abdomen Exam: soft, normal bowel sounds, No tenderness, No distention, No mass, No guarding, No rebound Back Exam: normal inspection, No CVA tenderness Extremity Exam: other (L groin with approx 3x5 cm area of erythema; induration is approx 6x8 cm and very ttp. no exudate.) Skin Exam: warm, dry Results - Labs Lab/Micro Results: Accuchecks Date 10/13/16 Time 16:30 Accucheck Value: 229 Lab Results-Last 24 Hours 10/13/16 10/13/16 10/13/16 Range/Units 11:45 11:45 11:45 WBC 11.8 H (4.0-10.5) K/mm3 RBC 4.74 (4.1-5.4) M/mm3 Hgb 12.6 (12.0-16.0) gm/dl Hct 37.4 (35-47) % MCV 78.9 (78-100) fl MCH 26.6 (26-32) pg MCHC 33.7 (32-36) g/dl RDW 14.7 H (11.5-14.0) % Plt Count 375 (150-450) K/mm3 MPV 9.9 H (6-9.5) fl Gran % 65.8 (36.0-66.0) % Lymphocytes % 26.5 (24.0-44.0) % Monocytes % 4.9 (0.0-12.0) % Eosinophils % 2.4 (0.00-5.0) % Basophils % 0.4 (0.0-0.4) % Basophils # 0.05 (0-0.4) Sodium 138 (136-145) mEq/L Potassium 4.0 (3.5-5.1) mEq/L Chloride 99 (98-107) mEq/L Carbon Dioxide 28.6 (21-32) mEq/L Anion Gap 13.9 (5-15) MEQ/L BUN 13 (9-20) mg/dL Creatinine 0.77 (0.55-1.30) mg/dl Estimated GFR > 60 ML/MIN Glucose 296 H (70-110) MG/DL Lactic Acid 1.5 (0.4-2.0) Calcium 10.1 (8.5-10.1) mg/dL Total Bilirubin 0.20 (0.2-1.0) mg/dL AST 5 L (15-37) U/L ALT 7 L (12-78) U/L Alkaline Phosphatase 94 (46-116) U/L Serum Total Protein 8.4 H (6.4-8.2) gm/dL Albumin 3.8 (3.4-5.0) g/dL Accuchecks Date 10/13/16 Time 16:30 Accucheck Value: 229 - Radiology Impressions Radiology Exams & Impressions: Radiology Procedures Category Date Time Status CHEST 1 VIEW (PORTABLE) Stat Exams 10/13/16 16:07 Completed Assessment/Plan (1) Abscess of left groin Current Visit: Yes Status: Acute Assessment & Plan: Surgery consulted thank you. On IV meropenem. Code(s): L02.214 - CUTANEOUS ABSCESS OF GROIN (2) Failure of outpatient treatment Current Visit: Yes Status: Acute Code(s): Z78.9 - OTHER SPECIFIED HEALTH STATUS (3) IDDM (insulin dependent diabetes mellitus) Current Visit: No Status: Acute Assessment & Plan: Accuchecks QID; to be given 1/2 dose lantus tonight in anticipation of surgery in a.m. Code(s): E11.9 - TYPE 2 DIABETES MELLITUS WITHOUT COMPLICATIONS; Z79.4 - PRISON (CURRENT) USE OF INSULIN
[2016-10-13 19:19] LABS: Collection Type CLEAN CATCH; Glucose 1000 mg/dL (NEGATIVE); Leukocyte Esterase 1+ (NEGATIVE)
[2016-10-13 19:20] LABS: Bacteria FEW /HPF (NEGATIVE); Bilirubin NEGATIVE (NEGATIVE); Blood 250 Ery/ul (0-5); COMPLETE URINE MICROSCOPIC? YES; Epithelial Cells RARE /HPF (FEW); WBC 15-25 /HPF (0-5); Yeast MANY /HPF (NEGATIVE)
[2016-10-13] MEDS: DILAUDID 1 MG/1ML PCA IV PRN (20:45)
[2016-10-13] MEDS ORDERED: NON-FORMULARY ITEM (Sertraline Hcl [Zoloft] 200 MG) PO SCH (22:00)
[2016-10-13] MEDS ORDERED: Lantus Insulin SQ SCH (22:00)
[2016-10-13] MEDS ORDERED: NON-FORMULARY ITEM (Insulin Detemir [Levemir] 60 UNIT) SQ SCH (22:00)
[2016-10-13] MEDS: ZOLOFT 50 MG TABLET PO SCH (22:13)
[2016-10-13] MEDS: NovoLOG Insulin SQ PRN (22:17)
[2016-10-14] MEDS: Sodium Chloride 0.9% 1000 ML 1,000 ML IV SCH ×3 (00:59→20:51)
[2016-10-14] MEDS: MERREM 500MG 500 MG in Sodium Chloride 100ML MINI-BAG PLUS 100 ML IV SCH ×3 (05:35→20:32)
[2016-10-14] MEDS ORDERED: Lactated Ringers 1,000 ML IV SCH (08:00)
[2016-10-14] MEDS ORDERED: Pepcid 20 MG VIAL IV SCH (08:00)
[2016-10-14] MEDS ORDERED: BICITRA 30 ML CUP PO SCH (08:00)
[2016-10-14] MEDS: NovoLOG Insulin SQ PRN ×2 (08:14→17:43)
[2016-10-14] MEDS ORDERED: Zemuron 100 MG/10 ML IV ONE (09:00)
[2016-10-14] MEDS ORDERED: Quelicin Fliptop 200 MG/10 ML IV ONE (09:00)
[2016-10-14] MEDS ORDERED: DIPRIVAN 200 MG/20 ML IV ONE (09:00)
[2016-10-14] MEDS ORDERED: SUBLIMAZE 100 MCG/2 ML IV ONE (09:00)
[2016-10-14] MEDS ORDERED: Versed 2 MG/2 ML Injection IV ONE (09:00)
--- NOTE | 2016-10-14 09:48 | PCM.NOTE ---
Date and Time: 10/14/16942 Subjective Assessment: She reports continued pain in her left groin where the abscess is located but states that the pain is better controlled now. She reports the lesion on her right buttocks has almost healed but that she continues to see the wound center weekly for this. She had a PICC line placed yesterday in her right arm. She reports she had had some fever at home. No nausea or vomiting at home. She reports recently starting trulicity for her diabetes and that her Hgb A1C was 12 and is now 11 (late September 2016). - Review of Systems Constitutional: Fever Eyes: No Symptoms Ears, Nose, & Throat: No Symptoms Respiratory: No Symptoms Cardiac: No Symptoms Abdominal/Gastrointestinal: No Symptoms Genitourinary Symptoms: No Symptoms Skin: Cellulitis, Other (abscess left groin) Psychological: No Symptoms Objective Exam General Appearance: no apparent distress Neurologic Exam: alert, cooperative, normal mood/affect Skin Exam: normal color, other (left groin with 10 x 4 cm area of erythema with fluctulance in the middle, no active drainage.) Respiratory Exam: normal breath sounds, lungs clear, airway intact, No prolonged expirations, No crackles/rales, No rhonchi Cardiovascular Exam: regular rate/rhythm, normal heart sounds, No murmur, No friction rub, No gallop Gastrointestinal/Abdomen Exam: soft, normal bowel sounds, No tenderness, No mass Extremity Exam: normal inspection, other (no c/c/e) OBJECTIVE DATA Vital Signs: Vital Signs - 24 hr Temp Pulse Resp BP Pulse Ox 10/14/16 08:00 98.9 F 95 H 18 116/58 93 L 10/14/16 04:45 95 10/14/16 04:19 99.5 F 98 H 17 105/57 95 10/14/16 00:45 96 10/14/16 00:00 98.5 F 95 H 16 114/57 96 10/13/16 20:45 94 L 10/13/16 20:00 99.6 F 95 H 16 123/62 94 L 10/13/16 16:00 98.7 F 102 H 20 148/67 97 10/13/16 11:22 98.6 F 109 H 20 145/81 95 Pain Assessment - Last Documented Pain Intensity 8 Pain Scale Used 0-10 Pain Scale Intake and Output: Intake & Output 10/12/16 10/13/16 10/14/16 10/15/16 06:59 06:59 06:59 06:59 Intake Total 2513 0 Output Total 800 Balance 1713 0 Weight 70.874 kg Lab Results: Accuchecks Date 10/13/16 Time 16:30 Accucheck Value: 323 Accucheck Value: 229 Lab Results-Last 24 Hours 10/13/16 10/13/16 10/13/16 Range/Units 11:45 11:45 11:45 WBC 11.8 H (4.0-10.5) K/mm3 RBC 4.74 (4.1-5.4) M/mm3 Hgb 12.6 (12.0-16.0) gm/dl Hct 37.4 (35-47) % MCV 78.9 (78-100) fl MCH 26.6 (26-32) pg MCHC 33.7 (32-36) g/dl RDW 14.7 H (11.5-14.0) % Plt Count 375 (150-450) K/mm3 MPV 9.9 H (6-9.5) fl Gran % 65.8 (36.0-66.0) % Lymphocytes % 26.5 (24.0-44.0) % Monocytes % 4.9 (0.0-12.0) % Eosinophils % 2.4 (0.00-5.0) % Basophils % 0.4 (0.0-0.4) % Basophils # 0.05 (0-0.4) Sodium 138 (136-145) mEq/L Potassium 4.0 (3.5-5.1) mEq/L Chloride 99 (98-107) mEq/L Carbon Dioxide 28.6 (21-32) mEq/L Anion Gap 13.9 (5-15) MEQ/L BUN 13 (9-20) mg/dL Creatinine 0.77 (0.55-1.30) mg/dl Estimated GFR > 60 ML/MIN Glucose 296 H (70-110) MG/DL Lactic Acid 1.5 (0.4-2.0) Calcium 10.1 (8.5-10.1) mg/dL Total Bilirubin 0.20 (0.2-1.0) mg/dL AST 5 L (15-37) U/L ALT 7 L (12-78) U/L Alkaline Phosphatase 94 (46-116) U/L Serum Total Protein 8.4 H (6.4-8.2) gm/dL Albumin 3.8 (3.4-5.0) g/dL Ur Collection Type Urine Color (YELLOW) Urine Appearance (CLEAR) Urine pH (5-6) Ur Specific [place] (1.005-1.025) Urine Protein (Negative) Urine Ketones (NEGATIVE) Urine Blood (0-5) Matthew/ul Urine Nitrite (NEGATIVE) Urine Bilirubin (NEGATIVE) Urine Urobilinogen (0-1) mg/dL Ur Leukocyte Esterase (NEGATIVE) Urine Microscopic RBC (0-2) /HPF Urine Microscopic WBC (0-5) /HPF Ur Epithelial Cells (FEW) /HPF Urine Bacteria (NEGATIVE) /HPF Urine Yeast (NEGATIVE) /HPF Urine Glucose (NEGATIVE) mg/dL Specimen Received 10/13/16 Range/Units 18:30 WBC (4.0-10.5) K/mm3 RBC (4.1-5.4) M/mm3 Hgb (12.0-16.0) gm/dl Hct (35-47) % MCV (78-100) fl MCH (26-32) pg MCHC (32-36) g/dl RDW (11.5-14.0) % Plt Count (150-450) K/mm3 MPV (6-9.5) fl Gran % (36.0-66.0) % Lymphocytes % (24.0-44.0) % Monocytes % (0.0-12.0) % Eosinophils % (0.00-5.0) % Basophils % (0.0-0.4) % Basophils # (0-0.4) Sodium (136-145) mEq/L Potassium (3.5-5.1) mEq/L Chloride (98-107) mEq/L Carbon Dioxide (21-32) mEq/L Anion Gap (5-15) MEQ/L BUN (9-20) mg/dL Creatinine (0.55-1.30) mg/dl Estimated GFR ML/MIN Glucose (70-110) MG/DL Lactic Acid (0.4-2.0) Calcium (8.5-10.1) mg/dL Total Bilirubin (0.2-1.0) mg/dL AST (15-37) U/L ALT (12-78) U/L Alkaline Phosphatase (46-116) U/L Serum Total Protein (6.4-8.2) gm/dL Albumin (3.4-5.0) g/dL Ur Collection Type CLEAN CATCH Urine Color YELLOW (YELLOW) Urine Appearance SLIGHTLY CLOUDY (CLEAR) Urine pH 5.0 (5-6) Ur Specific [place] 1.020 (1.005-1.025) Urine Protein 30 (Negative) Urine Ketones SMALL (NEGATIVE) Urine Blood 250 (0-5) Matthew/ul Urine Nitrite NEGATIVE (NEGATIVE) Urine Bilirubin NEGATIVE (NEGATIVE) Urine Urobilinogen NORMAL (0-1) mg/dL Ur Leukocyte Esterase 1+ (NEGATIVE) Urine Microscopic RBC 15-25 (0-2) /HPF Urine Microscopic WBC 15-25 (0-5) /HPF Ur Epithelial Cells RARE (FEW) /HPF Urine Bacteria FEW (NEGATIVE) /HPF Urine Yeast MANY (NEGATIVE) /HPF Urine Glucose 1000 (NEGATIVE) mg/dL Specimen Received 10/13/16 1830 Radiology Exams: Radiology Procedures Category Date Time Status CHEST 1 VIEW (PORTABLE) Stat Exams 10/13/16 16:07 Completed Assessment/Plan (1) Abscess of left groin Current Visit: Yes Status: Acute Assessment & Plan: Continue meropenem and will ask for wound culture when this is drained. Code(s): L02.214 - CUTANEOUS ABSCESS OF GROIN (2) Diabetes mellitus out of control Current Visit: Yes Status: Acute Qualifiers: Diabetes mellitus type: type 2 Diabetes mellitus complication status: with hyperglycemia Diabetes mellitus fdc insulin use: without fdc use Qualified Code(s): E11.65 - Type 2 diabetes mellitus with hyperglycemia Assessment & Plan: Her last Hgb A1C was 11 in September 2016. Patient encouraged that good blood glucose control may help with less infections/cellulitis. She sees Dr. Brown for her diabetes care. Patient reports she recently started Trulicity although this is not on her home medication list. Continue with lantus and novalog. Her home medication list says she uses this as a sliding scale and most likely this needs to be scheduled with her meals at a set dose with an additional sliding scale if needed. This would help cover the glucose in the meals she is eating. I will add novolog 8 units with her meals for when she is allowed to start eating again. Restart metformin. Code(s): E11.65 - TYPE 2 DIABETES MELLITUS WITH HYPERGLYCEMIA (3) Mixed hyperlipidemia Current Visit: Yes Status: Acute Assessment & Plan: Restart statin. Code(s): E78.2 - MIXED HYPERLIPIDEMIA
[2016-10-14] MEDS ORDERED: Cozaar 50 MG PO SCH (10:00)
[2016-10-14] MEDS ORDERED: NON-FORMULARY ITEM (Aripiprazole [Abilify] 5 MG) PO SCH (10:00)
[2016-10-14] MEDS ORDERED: NON-FORMULARY ITEM (Losartan Potassium [Losartan Potassium] 25 MG) PO SCH (10:00)
[2016-10-14] MEDS: NovoLOG Insulin SQ SCH ×2 (11:20→17:43)
[2016-10-14] MEDS ORDERED: CEFAZOLIN 2 GM-D5W BAG** 2 GM/50 ML ML IV SCH (14:00)
[2016-10-14] MEDS ORDERED: SUBLIMAZE 100 MCG/2 ML ONE (15:28)
[2016-10-14] MEDS: hydroDIURIL 25 MG PO SCH (16:37)
[2016-10-14] MEDS: Abilify 10 MG PO SCH (16:37)
[2016-10-14] MEDS: Cozaar 50 MG PO SCH (16:37)
[2016-10-14] MEDS: Glucophage 500 MG PO SCH (16:37)
[2016-10-14] MEDS: DILAUDID 1 MG/1ML PCA IV PRN (19:54)
[2016-10-14] MEDS: ZOLOFT 50 MG TABLET PO SCH (20:32)
[2016-10-14] MEDS: ZOCOR 20MG PO SCH (20:32)
[2016-10-14] MEDS: Lantus Insulin SQ SCH (20:32)
[2016-10-15 05:44] LABS: BASOPHIL % 0.5 % (0.0-0.4); Eosinophil % 3.6 % (0.00-5.0); Granulocytes % 53.4 % (36.0-66.0); Lymphocytes % 35.3 % (24.0-44.0); Mean Corpuscular Hemoglobin 26.4 pg (26-32); Mean Platelet Volume 9.3 fl (6-9.5); Monocytes % 7.2 % (0.0-12.0); Platelet Count 329 K/mm3 (150-450); Red Blood Count 4.05 M/mm3 (4.1-5.4); Red Cell Distribution Width 14.4 % (11.5-14.0); White Blood Count 10.7 K/mm3 (4.0-10.5)
[2016-10-15] MEDS: TYLENOL 325 MG PO PRN (05:48)
[2016-10-15] MEDS: MERREM 500MG 500 MG in Sodium Chloride 100ML MINI-BAG PLUS 100 ML IV SCH ×3 (05:48→21:58)
[2016-10-15 06:18] LABS: ANION GAP 12.2 MEQ/L (5-15); BLOOD UREA NITROGEN 12 mg/dL (9-20); CHLORIDE 98 mEq/L (98-107); Carbon Dioxide 30.1 mEq/L (21-32); Glucose 243 MG/DL (70-110); Potassium 3.6 mEq/L (3.5-5.1); SODIUM 137 mEq/L (136-145)
--- NOTE | 2016-10-15 08:17 | OP ---
SURGERY DATE/TIME: 10/14/2016 1432 PREOPERATIVE DIAGNOSIS: Abscess left groin. POSTOPERATIVE DIAGNOSIS: Abscess left groin. PROCEDURE: I&D abscess left groin. SURGEON: Robin Phipps M.D. ANESTHESIA: General. COMPLICATIONS: None. CONDITION: Stable. INDICATION: A patient with acute abscess. DESCRIPTION OF PROCEDURE: Taken to surgery. Routine prep and drape. Time out performed. With cautery this was opened and culture was obtained. It was irrigated. It was packed with Iodoform. The patient tolerated the procedure satisfactorily.
[2016-10-15] MEDS: Glucophage 500 MG PO SCH ×2 (08:29→17:33)
[2016-10-15] MEDS: NovoLOG Insulin SQ SCH ×3 (08:29→17:33)
[2016-10-15] MEDS: NovoLOG Insulin SQ PRN (08:30)
[2016-10-15] MEDS ORDERED: SENOKOT 8.6 MG PO PRN (08:49)
--- NOTE | 2016-10-15 08:49 | PCM.NOTE ---
Date and Time: 10/15/16 0845 Subjective Assessment: She states she had surgery yesterday and her pain is better. She has not had a bowel movement and feels constipated. She denies nausea or vomiting. She reports she usually takes at least 10 units of short acting insulin with each of her meals. - Review of Systems Constitutional: No Symptoms Eyes: No Symptoms Ears, Nose, & Throat: No Symptoms Respiratory: No Symptoms Cardiac: No Symptoms Abdominal/Gastrointestinal: Constipation Genitourinary Symptoms: No Symptoms Skin: Cellulitis, Other (left inguinal abscess/cellulitis s/p drainage) Objective Exam General Appearance: no apparent distress, alert Neurologic Exam: alert, cooperative, normal mood/affect Skin Exam: normal color, warm, dry Respiratory Exam: normal breath sounds, lungs clear, No crackles/rales, No rhonchi, No wheezing Cardiovascular Exam: regular rate/rhythm, normal heart sounds, No murmur, No friction rub, No gallop Gastrointestinal/Abdomen Exam: soft, normal bowel sounds, other (left inguinal area with incision with packing in place, no active drainage, minimal erythema of skin around incision and firmness of the tissue around incision.), No tenderness, No distention, No mass Extremity Exam: other (no c/c/e) OBJECTIVE DATA Vital Signs: Vital Signs - 24 hr Temp Pulse Resp BP Pulse Ox 10/15/16 08:00 98.5 F 96 H 18 132/68 95 10/15/16 07:17 95 10/15/16 04:00 98.4 F 83 18 123/69 93 L 10/15/16 03:54 97 10/15/16 00:10 98.7 F 86 16 111/69 97 10/14/16 23:54 96 10/14/16 20:45 96 10/14/16 20:00 98.9 F 94 H 18 118/64 96 10/14/16 19:54 95 10/14/16 17:25 98.3 F 98 H 20 141/79 94 L 10/14/16 17:15 94 L 10/14/16 16:55 99.4 F 91 H 18 134/65 95 10/14/16 16:45 94 L 10/14/16 16:25 99.1 F 95 H 18 130/66 93 L 10/14/16 16:10 99.3 F 96 H 18 119/56 93 L 10/14/16 15:55 99.4 F 91 H 17 129/59 92 L 10/14/16 12:45 95 10/14/16 12:00 99.3 F 96 H 18 106/56 92 L 10/14/16 10:41 98.9 F 95 H 18 116/58 93 L Oxygen-Last 24 hours O2 Percentage 2 Liters = 28% O2 Percentage 2 Liters = 28% O2 Percentage 2 Liters = 28% O2 Percentage 2 Liters = 28% O2 Percentage 2 Liters = 28% Pain Assessment - Last Documented Pain Intensity 6 Pain Scale Used 0-10 Pain Scale Intake and Output: Intake & Output 10/13/16 10/14/16 10/15/16 10/16/16 06:59 06:59 06:59 06:59 Intake Total 2513 2899 Output Total 800 2900 Balance 1713 -1 Weight 70.874 kg 70.874 kg Lab Results: Accuchecks Date 10/14/16 Date 10/14/16 Time 16:30 Time 11:30 Accucheck Value: 168 Accucheck Value: 239 Accucheck Value: 175 Lab Results-Last 24 Hours 10/15/16 10/15/16 Range/Units 05:38 05:38 WBC 10.7 H (4.0-10.5) K/mm3 RBC 4.05 L (4.1-5.4) M/mm3 Hgb 10.7 L (12.0-16.0) gm/dl Hct 32.8 L (35-47) % MCV 81.0 (78-100) fl MCH 26.4 (26-32) pg MCHC 32.6 (32-36) g/dl RDW 14.4 H (11.5-14.0) % Plt Count 329 (150-450) K/mm3 MPV 9.3 (6-9.5) fl Gran % 53.4 (36.0-66.0) % Lymphocytes % 35.3 (24.0-44.0) % Monocytes % 7.2 (0.0-12.0) % Eosinophils % 3.6 (0.00-5.0) % Basophils % 0.5 (0.0-0.4) % Basophils # 0.05 (0-0.4) Sodium 137 (136-145) mEq/L Potassium 3.6 (3.5-5.1) mEq/L Chloride 98 (98-107) mEq/L Carbon Dioxide 30.1 (21-32) mEq/L Anion Gap 12.2 (5-15) MEQ/L BUN 12 (9-20) mg/dL Creatinine 0.65 (0.55-1.30) mg/dl Estimated GFR > 60 ML/MIN Glucose 243 H (70-110) MG/DL Calcium 9.1 (8.5-10.1) mg/dL Radiology Exams: Radiology Procedures Category Date Time Status CHEST 1 VIEW (PORTABLE) Stat Exams 10/13/16 16:07 Completed Assessment/Plan (1) Abscess of left groin Current Visit: Yes Status: Acute Assessment & Plan: Continue meropenem. Await ID and sensitivity on wound culture taken during surgery yesterday. Consult PT. Code(s): L02.214 - CUTANEOUS ABSCESS OF GROIN (2) Diabetes mellitus out of control Current Visit: Yes Status: Acute Qualifiers: Diabetes mellitus type: type 2 Diabetes mellitus complication status: with hyperglycemia Diabetes mellitus longterm insulin use: without intermediate accountant use Qualified Code(s): E11.65 - Type 2 diabetes mellitus with hyperglycemia Assessment & Plan: Continue with insulin and adjust to try to better control her blood glucoses. Code(s): E11.65 - TYPE 2 DIABETES MELLITUS WITH HYPERGLYCEMIA (3) Mixed hyperlipidemia Current Visit: Yes Status: Acute Assessment & Plan: Continue home medication. Code(s): E78.2 - MIXED HYPERLIPIDEMIA (4) Constipation Current Visit: Yes Status: Acute Assessment & Plan: Start stool softener. Code(s): K59.00 - CONSTIPATION, UNSPECIFIED
[2016-10-15] MEDS: Cozaar 50 MG PO SCH (11:13)
[2016-10-15] MEDS: Abilify 10 MG PO SCH (11:14)
[2016-10-15] MEDS: hydroDIURIL 25 MG PO SCH (11:15)
[2016-10-15] MEDS: Colace 100 MG PO SCH ×2 (11:20→21:58)
[2016-10-15] MEDS: DILAUDID 1 MG/1ML PCA IV PRN (18:58)
[2016-10-15] MEDS ORDERED: Sodium Chloride 0.9% 500 ML 500 ML IV SCH (20:30)
[2016-10-15] MEDS: ZOLOFT 50 MG TABLET PO SCH (21:57)
[2016-10-15] MEDS: ZOCOR 20MG PO SCH (21:57)
[2016-10-15] MEDS: Lantus Insulin SQ SCH (21:58)
[2016-10-16] MEDS: TYLENOL 325 MG PO PRN (04:18)
[2016-10-16] MEDS: MERREM 500MG 500 MG in Sodium Chloride 100ML MINI-BAG PLUS 100 ML IV SCH (05:54)
[2016-10-16] MEDS: DILAUDID 1 MG/1ML PCA IV PRN ×3 (07:21→15:55)
[2016-10-16] MEDS: Abilify 10 MG PO SCH (08:21)
[2016-10-16] MEDS: Cozaar 50 MG PO SCH (08:22)
[2016-10-16] MEDS: Glucophage 500 MG PO SCH (08:23)
[2016-10-16] MEDS: hydroDIURIL 25 MG PO SCH (08:23)
[2016-10-16] MEDS: Colace 100 MG PO SCH (08:24)
[2016-10-16] MEDS: NovoLOG Insulin SQ SCH ×2 (08:25→12:15)
--- NOTE | 2016-10-16 10:28 | PCM.DS ---
Discharge Summary Date of Admission: 10/13/16 11:02 Admitting Physician: JANE FU Consults: Consults on Case 10/13/16 11:31 Consult Surgery Primary Care Provider: JANE FU Allergies Allergies lisinopril Allergy (Verified 07/08/16 18:04) Hospital Summary - Hospital Course Hospital Course: patient was admitted and cared for by Dr Howard and Dr Phipps, she had incision and drainage of left inguinal abscess on 10/14/16. she is feeling much better at this time, induration and erythema are improved with meropenem s/p I and D. Unfortunately the wound culture shows no growth to date, Dr Cai saw the patient and examined the wound this morning and gave the ok for her to discharge , she is eager to go home. - Vitals & Intake/Output Vital Signs: Vital Signs Temperature 98.1 F 10/16/16 08:00 Pulse Rate 92 H 10/16/16 08:00 Respiratory Rate 18 10/16/16 08:00 Blood Pressure 109/67 10/16/16 08:00 O2 Sat by Pulse Oximetry 91 L 10/16/16 08:00 Oxygen-Last Documented O2 Percentage 2 Liters = 28% Intake & Output: Intake & Output 10/13/16 10/14/16 10/15/16 10/16/16 11:59 11:59 11:59 11:59 Intake Total 2513 3339 2922 Output Total 800 2900 1600 Balance 2863 322 4716 Weight 70.874 kg 70.874 kg 70.874 kg - Lab Result Diagrams: 10/15/16 05:38 10/15/16 05:38 Lab Results-Last 24 Hrs: Accuchecks Date 10/16/16 Date 10/15/16 Date 10/15/16 Date 10/15/16 Time 07:30 Time 21:00 Time 16:30 Time 11:30 Accucheck Value: 160 Accucheck Value: 136 Accucheck Value: 125 Accucheck Value: 130 Micro Results-Entire Visit: Microbiology 10/14/16 18:30 - Preliminary Clean Catch Midstream NO GROWTH TO DATE 10/14/16 14:53 Wound Culture - Preliminary Groin - Left NO GROWTH TO DATE Accuchecks Date 10/16/16 Date 10/15/16 Date 10/15/16 Date 10/15/16 Time 07:30 Time 21:00 Time 16:30 Time 11:30 Accucheck Value: 160 Accucheck Value: 136 Accucheck Value: 125 Accucheck Value: 130 - Procedures and Test Procedures and Tests throughout Hospitalization: Therapy Orders & Screens 10/14/16 17:14 Oxygen NASAL CANNULA 2 lpm Comment: Diagnosis: Abscess w/cellulitis 10/15/16 08:49 PT Eval & Treat (MD Order) ROUTINE Evaluate: Yes Treat: Yes Reason for Eval:: left inguinal abscess/cellulitis s/p I and D. Patient wants to do wound care here after dischraged from hospital. Diagnosis: Abscess w/cellulitis Discharge Exam General Appearance: no apparent distress, alert Respiratory Exam: normal breath sounds, lungs clear, No respiratory distress Cardiovascular Exam: regular rate/rhythm, normal heart sounds Gastrointestinal/Abdomen Exam: soft, No tenderness, No mass Extremity Exam: other (left inguinal region s/p incision and drainage, scant serous drainage present, mild induration.) Final Diagnosis/Problem List - Final Discharge Diagnosis/Problem (1) Abscess of left groin Current Visit: Yes Status: Acute Assessment & Plan: home on po bactrim, last abscess was ESBL+ E coli sens to bactrim, this one is showing no growth (2) IDDM (insulin dependent diabetes mellitus) Current Visit: No Status: Acute Assessment & Plan: resume home meds (3) Failure of outpatient treatment Current Visit: Yes Status: Acute - Discharge Disposition: Home, Self-Care Condition: Stable Prescriptions: New Ciprofloxacin [Cipro 500 MG] 500 mg PO BIDAC #20 tablet Smz/Tmp Ds Tablet [Bactrim Ds Tablet] 1 tab PO BID #20 tablet Continue Insulin Detemir [Levemir] 60 unit SQ HS Insulin Aspart [NovoLOG Insulin] 1 unit SQ UD Simvastatin 40 mg PO HS Sertraline HCl [Zoloft] 200 mg PO HS Losartan Potassium 25 mg PO DAILY Hydrochlorothiazide 25 mg [hydroDIURIL 25 MG] 25 mg PO DAILY Gemfibrozil 600 mg [Lopid 600 mg] 600 mg PO BID Aripiprazole [Abilify] 5 mg PO DAILY Metformin HCl 1000 mg [Glucophage 1000 MG] 1,000 mg PO BID Dulaglutide [Trulicity] 0.5 ml SQ WEEKLY Discontinued Clindamycin HCl 300 mg PO BID Follow up with: JENNIFER PHPIPS [ACTIVE STAFF] - 1 Week JANE FU [Primary Care Provider] - 10/22/16 8:45 am Forms: Patient Portal Information
[2016-10-16 12:32] VITALS: BP 116/75; PULSE 90; O2SAT 93
== END 2016-10-16 14:40 | disposition home or self-care (01) | DRG 581 ==
LOC: MED SURG 11:02
PROVIDERS: ADMIT Family Medicine; ATTEND Family Medicine
PROC: 0Y9600Z Drainage of Left Inguinal Region with Drainage Device, Open Approach (ICD-10-PCS; principal; 2016-10-14)
DX: L02.214 Cutaneous abscess of groin (principal); E11.65 Type 2 diabetes mellitus with hyperglycemia; Z79.4 Long term (current) use of insulin; Z78.9 Other specified health status; I10 Essential (primary) hypertension; G62.9 Polyneuropathy, unspecified; F41.8 Other specified anxiety disorders; M19.90 Unspecified osteoarthritis, unspecified site; E78.2 Mixed hyperlipidemia; K59.00 Constipation, unspecified
CPT/HCPCS: 00400; 36415; 36569; 71010; 80048; 80053; 81000; 82962; 83605; 85025; 87070; 87086; 94760; J0330; J0690; J1170; J1642; J2250; J2270; J2405; J2704; J3010; A9270-GY

== ENCOUNTER 2018-04-24 04:34 | Inpatient (IN) | payer OTHER ==
--- NOTE | 2018-04-24 05:05 | ERPHSYRPT ---
- History of Present Illness Time Seen by Provider: 04/24/18 05:01 Source: patient Exam Limitations: no limitations Physician History: pt has abd abcess below umbilicus with nausea and fever for a few days no vomiting yet and prior hx of abcesses in other locations; tender only at site with 3-4 cm SQ abscess but tender below in abd also , erythematous on surface ; Timing/Duration: day(s) Severity: moderate Associated Symptoms: nausea, abdominal pain, fever, loss of appetite Allergies/Adverse Reactions: lisinopril Allergy (Verified 04/24/18 05:03) Home Medications: Aripiprazole [Abilify] 5 mg PO DAILY 10/21/15 [History] Gemfibrozil 600 mg [Lopid 600 mg] 600 mg PO BID 10/21/15 [History] Hydrochlorothiazide 25 mg [hydroDIURIL 25 MG] 25 mg PO DAILY 10/21/15 [ History] Insulin Aspart [NovoLOG Insulin] 1 unit SQ UD 10/21/15 [History] Insulin Detemir [Levemir] 60 unit SQ BID 10/21/15 [History] Losartan Potassium 25 mg PO DAILY 10/21/15 [History] Metformin HCl 1000 mg [Glucophage 1000 MG] 1,000 mg PO BID 10/21/15 [History] Sertraline HCl [Zoloft] 200 mg PO HS 10/21/15 [History] Simvastatin 40 mg PO DAILY 10/21/15 [History] Gabapentin [Neurontin] 300 mg PO TID 04/24/18 [History] Hx Tetanus, Diphtheria Vaccination/Date Given: Yes Hx Influenza Vaccination/Date Given: Yes (2015) Hx Pneumococcal Vaccination/Date Given: No - Review of Systems Constitutional: Fever, No Chills Eyes: No Symptoms Ears, Nose, & Throat: No Symptoms Respiratory: No Cough, No Dyspnea Cardiac: No Chest Pain, No Edema, No Syncope Abdominal/Gastrointestinal: Abdominal Pain, Nausea, No Vomiting, No Diarrhea Genitourinary Symptoms: No Dysuria Musculoskeletal: No Back Pain, No Neck Pain Skin: Cellulitis, Induration, Skin Lesions, Other (abscess), No Rash Neurological: No Dizziness, No Focal Weakness, No Sensory Changes Psychological: No Symptoms Endocrine: No Symptoms All Other Systems: Reviewed and Negative - Past Medical History Pertinent Past Medical History: Yes Neurological History: Seizures ENT History: No Pertinent History Cardiac History: High Cholesterol, Hypertension Respiratory History: No Pertinent History Endocrine Medical History: Diabetes Type II Musculoskeletal History: No Pertinent History GI Medical History: No Pertinent History History: No Pertinent History Psycho-Social History: Anxiety, Depression Female Reproductive Disorders: No Pertinent History Other Medical History: Arthritis - Past Surgical History Past Surgical History: Yes Neuro Surgical History: No Pertinent History Cardiac: No Pertinent History Respiratory: No Pertinent History Gastrointestinal: Appendectomy Genitourinary: No Pertinent History Musculoskeletal: No Pertinent History Female Surgical History: Hysterectomy Other Surgical History: breast reduction, I and D perirectal abcess - Social History Smoking Status: Never smoker Exposure to second hand smoke: No Drug Use: none Patient Lives Alone: Yes - Nursing Vital Signs Nursing Vital Signs: Initial Vital Signs Temperature 98.7 F 04/24/18 04:44 Pulse Rate 111 H 04/24/18 04:44 Respiratory Rate 18 04/24/18 04:44 Blood Pressure 148/80 04/24/18 04:44 O2 Sat by Pulse Oximetry 97 04/24/18 04:44 Pain Scale Pain Intensity 4 - Physical Exam General Appearance: no apparent distress, alert Eye Exam: PERRL/EOMI, eyes nml inspection Ears, Nose, Throat Exam: normal ENT inspection, TMs normal, pharynx normal, moist mucous membranes Neck Exam: normal inspection, non-tender, supple, full range of motion Respiratory Exam: normal breath sounds, lungs clear, No respiratory distress Cardiovascular Exam: regular rate/rhythm, normal heart sounds, normal peripheral pulses Gastrointestinal/Abdomen Exam: soft, normal bowel sounds, tenderness, other ( anterior abcess ), No mass Pelvic Exam: deferred Rectal Exam: deferred Back Exam: normal inspection, normal range of motion, No CVA tenderness, No vertebral tenderness Extremity Exam: normal inspection, normal range of motion, pelvis stable Neurologic Exam: alert, oriented x 3, cooperative, normal mood/affect, nml cerebellar function, nml station & gait, sensation nml, No motor deficits Skin Exam: normal color, warm, dry, No rash Lymphatic Exam: No adenopathy - Course Nursing assessment & vital signs reviewed: Yes Ordered Tests: Active Orders 24 hr Category Date Time Status Metal Extrusion Supervisor STAT Care 04/24/18 05:23 Active Clean Catch Urine Specimen STAT Care 04/24/18 05:06 Active IV Insertion STAT Care 04/24/18 05:06 Active NPO (ED) STAT Care 04/24/18 05:06 Active Pulse Oximetry (ED) STAT Care 04/24/18 05:23 Active Wound Care STAT Care 04/24/18 05:06 Active ABDOMEN AND PELVIS W/0 CONTRAS [CT] Stat Exams 04/24/18 05:07 Taken CBC W DIFF Stat Lab 04/24/18 05:10 Completed CMP Stat Lab 04/24/18 05:10 Completed CULTURE,URINE Stat Lab 04/24/18 05:45 Received Lactic Acid Stat Lab 04/24/18 05:20 Completed UA W/RFX UR CULTURE Stat Lab 04/24/18 05:45 Completed Medication Summary Discontinued Medications Generic Name Dose Route Start Last Admin Trade Name Freq PRN Reason Stop Dose Admin Diphtheria/Tetanus/Acell Pertussis 0.5 ml 04/24/18 05:06 Adacel Vial IM 04/24/18 05:07 .ONCE ONE Hydromorphone HCl 1 mg 04/24/18 06:25 04/24/18 06:32 Hydromorphone 1 Mg/Ml Ampule IV 04/24/18 06:26 1 mg STAT ONE Administration Hydromorphone HCl Confirm 04/24/18 06:30 Hydromorphone 1 Mg/Ml Ampule Administered 04/24/18 06:31 Dose 1 mg .ROUTE .STK-MED ONE Sodium Chloride 1,000 mls @ 999 mls/hr 04/24/18 05:06 04/24/18 05:35 Sodium Chloride 0.9% 1000 Ml IV 04/24/18 06:06 999 mls/hr .Q1H1M STA Administration Piperacillin Sod/Tazobactam Sod 3.375 gm in 100 mls @ 200 mls/hr 04/24/18 05: 10 04/24/18 05:36 Zosyn 3.375gm/100 Ml D5w IV 04/24/18 05:39 200 ml/hr STAT STA 200 mls/hr Administration Clindamycin HCl/Dextrose 600 mg in 50 mls @ 100 mls/hr 04/24/18 05:11 06:13 Clindamycin-D5w 600 Mg/50 Ml IV 04/24/18 05:40 100 ml/hr STAT STA 100 mls/hr Administration Sodium Chloride Confirm 04/24/18 05:20 Sodium Chloride 0.9% 1000 Ml Administered 04/24/18 05:21 Dose 1,000 mls @ ud .ROUTE .STK-MED ONE Piperacillin Sod/Tazobactam Sod Confirm 04/24/18 05:20 Zosyn 3.375gm/100 Ml D5w Administered 04/24/18 05:21 Dose 3.375 gm in 100 mls @ ud IV .STK-MED ONE Clindamycin HCl/Dextrose Confirm 04/24/18 05:23 Clindamycin-D5w 600 Mg/50 Ml Administered 04/24/18 05:24 Dose 600 mg in 50 mls @ ud IV .STK-MED ONE Ondansetron HCl 4 mg 04/24/18 05:06 04/24/18 05:35 Zofran 4 Mg/2 Ml Vial IV 04/24/18 05:07 4 mg STAT ONE Administration Ondansetron HCl Confirm 04/24/18 05:20 Zofran 4 Mg/2 Ml Vial Administered 04/24/18 05:21 Dose 4 mg .ROUTE .STK-MED ONE Lab/Rad Data: Laboratory Result Diagrams 04/24/18 05:10 04/24/18 05:10 Laboratory Results 04/24/18 04/24/18 04/24/18 Range/Units 05:45 05:20 05:10 WBC (4.0-10.5) K/mm3 RBC (4.1-5.4) M/mm3 Hgb (12.0-16.0) gm/dl Hct (35-47) % MCV (78-100) fl MCH (26-32) pg MCHC (32-36) g/dl RDW (11.5-14.0) % Plt Count (150-450) K/mm3 MPV (6-9.5) fl Gran % (36.0-66.0) % Eos # (Auto) (0-0.5) Absolute Lymphs (auto) (1.0-4.6) Absolute Monos (auto) (0.0-1.3) Lymphocytes % (24.0-44.0) % Monocytes % (0.0-12.0) % Eosinophils % (0.00-5.0) % Basophils % (0.0-0.4) % Absolute Granulocytes (1.4-6.9) Basophils # (0-0.4) Sodium 133 L (137-145) mmol/L Potassium 3.9 (3.5-5.1) mmol/L Chloride 92 L (98-107) mmol/L Carbon Dioxide 26 (22-30) mmol/L Anion Gap 17.7 H (5-15) MEQ/L BUN 14 (7-17) mg/dL Creatinine 0.48 L (0.52-1.04) mg/dL Estimated GFR > 60.0 ML/MIN Glucose 377 H (74-106) mg/dL Lactic Acid 1.5 (0.4-2.0) Calcium 10.3 H (8.4-10.2) mg/dL Total Bilirubin 0.70 (0.2-1.3) mg/dL AST 13 L (14-36) U/L ALT 15 (0-35) U/L Alkaline Phosphatase 121 (38-126) U/L Serum Total Protein 8.2 (6.3-8.2) g/dL Albumin 4.6 (3.5-5.0) g/dL Urine Color YELLOW (YELLOW) Urine Appearance CLOUDY (CLEAR) Urine pH 5.0 (5-6) Ur Specific [place] 1.035 (1.005-1.025) Urine Protein NEGATIVE (Negative) Urine Ketones SMALL (NEGATIVE) Urine Blood MODERATE (0-5) Matthew/ul Urine Nitrite POSITIVE (NEGATIVE) Urine Bilirubin NEGATIVE (NEGATIVE) Urine Urobilinogen NEGATIVE (0-1) mg/dL Ur Leukocyte Esterase LARGE (NEGATIVE) Urine WBC (Auto) >100 (0-5) /HPF Urine RBC (Auto) 51-100 (0-2) /HPF U Epithel Cells (Auto) RARE (FEW) /HPF Urine Bacteria (Auto) MODERATE (NEGATIVE) /HPF Urine Mucus (Auto) SLIGHT (NEGATIVE) /HPF Urine Culture Reflexed YES (NO) Urine Glucose >=500 (NEGATIVE) mg/dL 04/24/18 Range/Units 05:10 WBC 11.4 H (4.0-10.5) K/mm3 RBC 5.21 (4.1-5.4) M/mm3 Hgb 14.1 (12.0-16.0) gm/dl Hct 41.6 (35-47) % MCV 79.8 (78-100) fl MCH 27.1 (26-32) pg MCHC 33.9 (32-36) g/dl RDW 13.3 (11.5-14.0) % Plt Count 296 (150-450) K/mm3 MPV 10.5 H (6-9.5) fl Gran % 67.5 H (36.0-66.0) % Eos # (Auto) 0.10 (0-0.5) Absolute Lymphs (auto) 2.82 (1.0-4.6) Absolute Monos (auto) 0.73 (0.0-1.3) Lymphocytes % 24.8 (24.0-44.0) % Monocytes % 6.4 (0.0-12.0) % Eosinophils % 0.9 (0.00-5.0) % Basophils % 0.4 (0.0-0.4) % Absolute Granulocytes 7.69 H (1.4-6.9) Basophils # 0.05 (0-0.4) Sodium (137-145) mmol/L Potassium (3.5-5.1) mmol/L Chloride (98-107) mmol/L Carbon Dioxide (22-30) mmol/L Anion Gap (5-15) MEQ/L BUN (7-17) mg/dL Creatinine (0.52-1.04) mg/dL Estimated GFR ML/MIN Glucose (74-106) mg/dL Lactic Acid (0.4-2.0) Calcium (8.4-10.2) mg/dL Total Bilirubin (0.2-1.3) mg/dL AST (14-36) U/L ALT (0-35) U/L Alkaline Phosphatase (38-126) U/L Serum Total Protein (6.3-8.2) g/dL Albumin (3.5-5.0) g/dL Urine Color (YELLOW) Urine Appearance (CLEAR) Urine pH (5-6) Ur Specific [place] (1.005-1.025) Urine Protein (Negative) Urine Ketones (NEGATIVE) Urine Blood (0-5) Matthew/ul Urine Nitrite (NEGATIVE) Urine Bilirubin (NEGATIVE) Urine Urobilinogen (0-1) mg/dL Ur Leukocyte Esterase (NEGATIVE) Urine WBC (Auto) (0-5) /HPF Urine RBC (Auto) (0-2) /HPF U Epithel Cells (Auto) (FEW) /HPF Urine Bacteria (Auto) (NEGATIVE) /HPF Urine Mucus (Auto) (NEGATIVE) /HPF Urine Culture Reflexed (NO) Urine Glucose (NEGATIVE) mg/dL - Progress Progress: improved, re-examined Progress Note: 04/24/18 06:13 pt states feels well enough to manage abscess at home and is aware of elevated glucose and will f/u PCP for packing changes also 04/24/18 06:56 discussed with pt , Dr. Haywood , and Dr. Holloway , and all are more comfortable with placing pt in and having surgeons do drainage and debridement in this Diabetic pt with panicular infection and abscess; 04/24/18 06:59 pt also advised of splenic aneurysm which she was previously aware and need to f /u for vascular findings Discussed with Dr.: Jewel Will see patient in: hospital (observation), other (dr haywood for dr mayfield) Counseled pt/family regarding: lab results, diagnosis, need for follow-up, rad results - Departure Time of Disposition: 06:56 Departure Disposition: Observation Clinical Impression: Abscess of skin and subcutaneous tissue, Abscess of skin of abdomen, Diabetes, UTI (urinary tract infection), IDDM (insulin dependent diabetes mellitus), Symptomatic abdominal panniculus, Splenic artery aneurysm Condition: Good Critical Care Time: No Referrals: JANE FU [Primary Care Provider] - Instructions: Urinary Tract Infections in Adults, Skin Abscess Additional Instructions: monitor your potassium level with your Dr until off of bactrim which can interact with other meds to raise potassium levels- this can be stopped after MRSA is excluded by the culture. your sugar is high and needs additional followup with your Dr as well and in meantime if not responding to insulin adjustment see Dr or return. Prescriptions: Cephalexin Mh 500 mg [Keflex 500 mg] 500 mg PO QID #30 capsule Sulfamethoxazole/Trimethoprim [Bactrim Ds Tablet] 1 each PO BID #20 tablet
[2018-04-24] MEDS ORDERED: Adacel Vial IM ONE (05:06)
[2018-04-24] MEDS ORDERED: Zofran 4 MG/2 ML VIAL IV ONE (05:06)
[2018-04-24] MEDS ORDERED: Sodium Chloride 0.9% 1000 ML 1,000 ML IV STA (05:06)
[2018-04-24] MEDS ORDERED: Zosyn 3.375GM/100 Ml D5W 3.375 GM/100 ML IVPB IV STA (05:10)
[2018-04-24] MEDS ORDERED: CLINDAMYCIN-D5W 600 MG/50 ML*** 600 MG/50 ML BAG IV STA (05:11)
[2018-04-24 05:20] LABS: BASOPHIL % 0.4 % (0.0-0.4); Basophil (Absolute #) 0.05 (0-0.4); Eosinophil % 0.9 % (0.00-5.0); Granulocyte Absolute (ANC) 7.69 (1.4-6.9); Granulocytes % 67.5 % (36.0-66.0); Hematocrit 41.6 % (35-47); Hemoglobin 14.1 gm/dl (12.0-16.0); Lymphocyte (Absolute #) 2.82 (1.0-4.6); Lymphocytes % 24.8 % (24.0-44.0); Mean Cell Volume 79.8 fl (78-100); Mean Corpuscular Hemoglobin 27.1 pg (26-32); Mean Corpuscular Hgb Concent. 33.9 g/dl (32-36); Mean Platelet Volume 10.5 fl (6-9.5); Monocyte (Absolute #) 0.73 (0.0-1.3); Monocytes % 6.4 % (0.0-12.0); Platelet Count 296 K/mm3 (150-450); Red Blood Count 5.21 M/mm3 (4.1-5.4); Red Cell Distribution Width 13.3 % (11.5-14.0); White Blood Count 11.4 K/mm3 (4.0-10.5)
[2018-04-24] MEDS ORDERED: Zosyn 3.375GM/100 Ml D5W 3.375 GM/100 ML IVPB IV ONE (05:20)
[2018-04-24] MEDS ORDERED: Zofran 4 MG/2 ML VIAL ONE (05:20)
[2018-04-24] MEDS ORDERED: Sodium Chloride 0.9% 1000 ML 1,000 ML ONE (05:20)
[2018-04-24] MEDS ORDERED: CLINDAMYCIN-D5W 600 MG/50 ML*** 600 MG/50 ML BAG IV ONE (05:23)
[2018-04-24 05:58] LABS: ALBUMIN 4.6 g/dL (3.5-5.0); ALKALINE PHOSPHATASE 121 U/L (38-126); ANION GAP 17.7 MEQ/L (5-15); BLOOD UREA NITROGEN 14 mg/dL (7-17); CHLORIDE 92 mmol/L (98-107); Calcium 10.3 mg/dL (8.4-10.2); Carbon Dioxide 26 mmol/L (22-30); Creatinine 1 0.48 mg/dL (0.52-1.04); Glucose 377 mg/dL (74-106); Potassium 3.9 mmol/L (3.5-5.1); SGOT/AST 13 U/L (14-36); SGPT/ALT 15 U/L (0-35); SODIUM 133 mmol/L (137-145); Total Protein 8.2 g/dL (6.3-8.2)
[2018-04-24 06:00] LABS: Appearance CLOUDY (CLEAR); Bacteria MODERATE /HPF (NEGATIVE); Bilirubin NEGATIVE (NEGATIVE); Blood MODERATE Ery/ul (0-5); Epithelial Cells RARE /HPF (FEW); Glucose >=500 mg/dL (NEGATIVE); Ketones SMALL (NEGATIVE); Leukocyte Esterase LARGE (NEGATIVE); Mucus SLIGHT /HPF (NEGATIVE); Nitrite POSITIVE (NEGATIVE); Protein,Urine Dip NEGATIVE (Negative); RBC 51-100 /HPF (0-2); Specific Gravity 1.035 (1.005-1.025); Urobilinogen NEGATIVE mg/dL (0-1); WBC >100 /HPF (0-5)
[2018-04-24] MEDS ORDERED: Hydromorphone 1 mg/ml Ampule IV ONE (06:25)
[2018-04-24] MEDS ORDERED: Hydromorphone 1 mg/ml Ampule ONE (06:30)
[2018-04-24] MEDS ORDERED: DIPRIVAN 200 MG/20 ML IV ONE (07:58)
[2018-04-24] MEDS ORDERED: SUBLIMAZE 100 MCG/2 ML IV ONE (07:58)
[2018-04-24] MEDS ORDERED: PHENYLEPHRINE HCL IV ONE (07:58)
[2018-04-24] MEDS ORDERED: Versed 2 MG/2 ML Injection IV ONE (07:58)
[2018-04-24] MEDS ORDERED: Zofran 4 MG/2 ML VIAL IV PRN (08:00)
[2018-04-24] MEDS: Sodium Chloride 0.9% 1000 ML 1,000 ML IV SCH ×2 (08:24→22:24)
--- NOTE | 2018-04-24 09:07 | XRAY ---
Indication: Infraumbilical abscess. Multiple contiguous axial images obtained through the abdomen and pelvis without contrast as ordered. Comparison: October 22, 2015. Lung bases are clear. Heart is not enlarged. Stable small hiatal hernia. Anterior abdominal wall at the level pelvis demonstrates a new subcutaneous fluid collection measuring at least 2.1 x 3.8 x 3.5 cm with induration favoring abscess. Noncontrasted stomach and bowel loops appear nonobstructed. Worsening moderate diffuse scattered colonic fecal debris throughout including rectum. Also diffuse scattered colonic diverticulosis without diverticulitis. No free fluid/air. Stable calcified splenic artery saccular aneurysm, appendectomy, and hysterectomy. Remaining liver, gallbladder, pancreas, spleen, adrenal glands, kidneys, ureters, and bladder appear unremarkable for noncontrast exam. There remains minimal aortoiliac calcifications without AAA. Osseous structures intact. Impression: 1. New anterior abdominal wall abscess as detailed. 2. Worsening diffuse fecal stasis without obstruction. 3. Stable colonic diverticulosis, small hiatal hernia, and calcified splenic artery aneurysm. Comment: Preliminary interpretation was made by [facility]. No critical discrepancy. CT DI 18.46
--- NOTE | 2018-04-24 09:22 | PCM.HP ---
History of Present Illness - Chief Complaint Chief Complaint: Panicular Abscess, diabetes; poor control History of Present Illness: is a 52 year old female patient of Dr Brown who reported to the ER last night with a several day history of fever and abscess in lower abdomen. Patient has had problems with recurrent complex abscesses, she is a poorly controlled insulin dependant diabetic and last a1c in the system was 13.1% February 2018. she has required incision and drainage on multiple occaisons in the past. - Review of Systems Constitutional: Fever, Chills Respiratory: No Cough, No Short Of Breath Abdominal/Gastrointestinal: Other (abscess, pain and pressure lower abdomen), No Nausea, No Vomiting, No Diarrhea Genitourinary Symptoms: No Dysuria Skin: No Rash All Other Systems: Reviewed and Negative Medications & Allergies Home Medications: Home Medication List Aripiprazole [Abilify] 5 mg PO DAILY 10/21/15 [History Confirmed 04/24/18] Gemfibrozil 600 mg [Lopid 600 mg] 600 mg PO BID 10/21/15 [History Confirmed 04/24/18] Hydrochlorothiazide 25 mg [hydroDIURIL 25 MG] 25 mg PO DAILY 10/21/15 [ History Confirmed 04/24/18] Insulin Aspart [NovoLOG Insulin] 1 unit SQ 10/21/15 [History Confirmed ] Insulin Detemir [Levemir] 60 unit SQ 10/21/15 [History Confirmed 04/24/18] Losartan Potassium 25 mg PO DAILY 10/21/15 [History Confirmed 04/24/18] Metformin HCl 1000 mg [Glucophage 1000 MG] 1,000 mg PO BID 10/21/15 [History Confirmed 04/24/18] Sertraline HCl [Zoloft] 200 mg PO HS 10/21/15 [History Confirmed 04/24/18] Simvastatin 80 mg PO DAILY 10/21/15 [History Confirmed 04/24/18] Folic Acid/Multivit-Min/Lutein [Multi-Vitamin Gummies] 1 each PO DAILY 04/24/18 [History Confirmed 04/24/18] Gabapentin [Neurontin] 400 mg PO QID 04/24/18 [History Confirmed 04/24/18] Ropinirole HCl 1 mg PO HS 04/24/18 [History Confirmed 04/24/18] Allergies/Adverse Reactions: Allergies Allergy/AdvReac Type Severity Reaction Status Date / Time lisinopril Allergy Verified 04/24/18 05:03 - Past Medical History Past Medical History: Yes Neurological History: Peripheral Neuropathy ENT History: No Pertinent History Cardiac History: High Cholesterol, Hypertension Respiratory History: No Pertinent History Endocrine Medical History: Diabetes Type II Musculoskelatal History: No Pertinent History GI Medical History: No Pertinent History History: No Pertinent History Pyscho-Social History: Anxiety, Depression Reproductive Disorders: No Pertinent History Comment: Arthritis, spleen aneurysm - Female History Are you now?: No - Past Surgical History Past Surgical History: Yes Neuro Surgical History: No Pertinent History Cardiac History: No Pertinent History Respiratory Surgery: No Pertinent History GI Surgical History: Appendectomy Genitourinary Surgical Hx: No Pertinent History Musculskeletal Surgical Hx: No Pertinent History Female Surgical History: Hysterectomy Other Surgical History: breast reduction, I and D perirectal abcess - Social History Smoking Status: Never smoker Exposure to second hand smoke: No Alcohol: Occasionally Drug Use: none - Physical Exam Vital Signs: Vital Signs - 24 hr Temp Pulse Resp BP Pulse Ox 04/24/18 08:54 99.2 F 101 H 18 140/69 96 04/24/18 06:15 104 H 16 116/62 97 04/24/18 05:23 97 04/24/18 04:44 98.7 F 111 H 18 148/80 97 General Appearance: no apparent distress, alert, obese Eye Exam: PERRL/EOMI, eyes nml inspection Respiratory Exam: normal breath sounds Cardiovascular Exam: regular rate/rhythm, normal heart sounds, normal peripheral pulses Gastrointestinal/Abdomen Exam: soft, normal bowel sounds, other (indurated, firm area in lower abdomen in to fold of panniculus, appears to be tunneling inferiorly. no purulent drainage, warm and red), No tenderness, No mass Extremity Exam: normal inspection, normal range of motion, pelvis stable Skin Exam: normal color, warm, dry, No rash Results - Labs Lab/Micro Results: Lab Results-Last 24 Hours 04/24/18 04/24/18 04/24/18 Range/Units 05:10 05:10 05:20 WBC 11.4 H (4.0-10.5) K/mm3 RBC 5.21 (4.1-5.4) M/mm3 Hgb 14.1 (12.0-16.0) gm/dl Hct 41.6 (35-47) % MCV 79.8 (78-100) fl MCH 27.1 (26-32) pg MCHC 33.9 (32-36) g/dl RDW 13.3 (11.5-14.0) % Plt Count 296 (150-450) K/mm3 MPV 10.5 H (6-9.5) fl Gran % 67.5 H (36.0-66.0) % Eos # (Auto) 0.10 (0-0.5) Absolute Lymphs (auto) 2.82 (1.0-4.6) Absolute Monos (auto) 0.73 (0.0-1.3) Lymphocytes % 24.8 (24.0-44.0) % Monocytes % 6.4 (0.0-12.0) % Eosinophils % 0.9 (0.00-5.0) % Basophils % 0.4 (0.0-0.4) % Absolute Granulocytes 7.69 H (1.4-6.9) Basophils # 0.05 (0-0.4) Sodium 133 L (137-145) mmol/L Potassium 3.9 (3.5-5.1) mmol/L Chloride 92 L (98-107) mmol/L Carbon Dioxide 26 (22-30) mmol/L Anion Gap 17.7 H (5-15) MEQ/L BUN 14 (7-17) mg/dL Creatinine 0.48 L (0.52-1.04) mg/dL Estimated GFR > 60.0 ML/MIN Glucose 377 H (74-106) mg/dL Lactic Acid 1.5 (0.4-2.0) Calcium 10.3 H (8.4-10.2) mg/dL Total Bilirubin 0.70 (0.2-1.3) mg/dL AST 13 L (14-36) U/L ALT 15 (0-35) U/L Alkaline Phosphatase 121 (38-126) U/L Serum Total Protein 8.2 (6.3-8.2) g/dL Albumin 4.6 (3.5-5.0) g/dL Urine Color (YELLOW) Urine Appearance (CLEAR) Urine pH (5-6) Ur Specific [place] (1.005-1.025) Urine Protein (Negative) Urine Ketones (NEGATIVE) Urine Blood (0-5) Matthew/ul Urine Nitrite (NEGATIVE) Urine Bilirubin (NEGATIVE) Urine Urobilinogen (0-1) mg/dL Ur Leukocyte Esterase (NEGATIVE) Urine WBC (Auto) (0-5) /HPF Urine RBC (Auto) (0-2) /HPF U Epithel Cells (Auto) (FEW) /HPF Urine Bacteria (Auto) (NEGATIVE) /HPF Urine Mucus (Auto) (NEGATIVE) /HPF Urine Culture Reflexed (NO) Urine Glucose (NEGATIVE) mg/dL 04/24/18 Range/Units 05:45 WBC (4.0-10.5) K/mm3 RBC (4.1-5.4) M/mm3 Hgb (12.0-16.0) gm/dl Hct (35-47) % MCV (78-100) fl MCH (26-32) pg MCHC (32-36) g/dl RDW (11.5-14.0) % Plt Count (150-450) K/mm3 MPV (6-9.5) fl Gran % (36.0-66.0) % Eos # (Auto) (0-0.5) Absolute Lymphs (auto) (1.0-4.6) Absolute Monos (auto) (0.0-1.3) Lymphocytes % (24.0-44.0) % Monocytes % (0.0-12.0) % Eosinophils % (0.00-5.0) % Basophils % (0.0-0.4) % Absolute Granulocytes (1.4-6.9) Basophils # (0-0.4) Sodium (137-145) mmol/L Potassium (3.5-5.1) mmol/L Chloride (98-107) mmol/L Carbon Dioxide (22-30) mmol/L Anion Gap (5-15) MEQ/L BUN (7-17) mg/dL Creatinine (0.52-1.04) mg/dL Estimated GFR ML/MIN Glucose (74-106) mg/dL Lactic Acid (0.4-2.0) Calcium (8.4-10.2) mg/dL Total Bilirubin (0.2-1.3) mg/dL AST (14-36) U/L ALT (0-35) U/L Alkaline Phosphatase (38-126) U/L Serum Total Protein (6.3-8.2) g/dL Albumin (3.5-5.0) g/dL Urine Color YELLOW (YELLOW) Urine Appearance CLOUDY (CLEAR) Urine pH 5.0 (5-6) Ur Specific [place] 1.035 (1.005-1.025) Urine Protein NEGATIVE (Negative) Urine Ketones SMALL (NEGATIVE) Urine Blood MODERATE (0-5) Matthew/ul Urine Nitrite POSITIVE (NEGATIVE) Urine Bilirubin NEGATIVE (NEGATIVE) Urine Urobilinogen NEGATIVE (0-1) mg/dL Ur Leukocyte Esterase LARGE (NEGATIVE) Urine WBC (Auto) >100 (0-5) /HPF Urine RBC (Auto) 51-100 (0-2) /HPF U Epithel Cells (Auto) RARE (FEW) /HPF Urine Bacteria (Auto) MODERATE (NEGATIVE) /HPF Urine Mucus (Auto) SLIGHT (NEGATIVE) /HPF Urine Culture Reflexed YES (NO) Urine Glucose >=500 (NEGATIVE) mg/dL - Radiology Impressions Radiology Exams & Impressions: Radiology Procedures Category Date Time Status ABDOMEN AND PELVIS W/0 CONTRAS [CT] Stat Exams 04/24/18 05:07 Completed Assessment/Plan (1) Abscess of skin of abdomen Current Visit: Yes Status: Acute Assessment & Plan: patient started on cleocin and zosyn empergically in ER, surgery consult pending. will likely need incision and drainage. Code(s): L02.211 - CUTANEOUS ABSCESS OF ABDOMINAL WALL (2) Diabetes mellitus out of control Current Visit: No Status: Acute Assessment & Plan: continue levemir 60 units daily and moderate dose sliding scale at this time once taking po. Code(s): E11.65 - TYPE 2 DIABETES MELLITUS WITH HYPERGLYCEMIA
[2018-04-24] MEDS ORDERED: Lactated Ringers 1,000 ML IV SCH (10:30)
[2018-04-24] MEDS: Neurontin 400 MG PO SCH ×4 (11:24→22:25)
[2018-04-24] MEDS: Abilify 10 MG PO SCH (11:25)
[2018-04-24] MEDS: Cozaar 50 MG PO SCH (11:25)
[2018-04-24] MEDS: hydroDIURIL 25 MG PO SCH (11:25)
[2018-04-24] MEDS: DILAUDID 2 MG INJECTION IV PRN ×2 (11:26→14:45)
[2018-04-24] MEDS: NovoLIN R SQ PRN ×3 (11:26→22:26)
[2018-04-24] MEDS: Zosyn 3.375GM/100 Ml D5W 3.375 GM/100 ML IVPB IV SCH ×2 (12:02→17:49)
[2018-04-24] MEDS ORDERED: SUBLIMAZE 100 MCG/2 ML ONE (13:46)
[2018-04-24] MEDS ORDERED: MORPHINE SULFATE 2 MG INJ IV PRN (14:29)
[2018-04-24] MEDS: CLINDAMYCIN-D5W 600 MG/50 ML*** 600 MG/50 ML BAG IV SCH ×2 (14:34→22:24)
--- NOTE | 2018-04-24 15:06 | CONS ---
CONSULT DATE: 04/24/2018 HISTORY: A 52 year-old female poorly controlled diabetic with recurring complex abscesses in the past and A1C 13.1 back in February. The past week she had enlarging infection lower abdomen just above her pubis area fail to improve. She was admitted to the hospital for IV antibiotics and asked for surgical consult. PAST MEDICAL HISTORY: Poorly controlled diabetes, hypertension, hypercholesterolemia, anxiety, depression, splenic artery aneurysm, arthritis in the past. Obesity. PAST SURGICAL HISTORY: Appendectomy. Hysterectomy. Breast reduction. Drainage of complex abscess in the past. MEDICATIONS: Abilify, Gemfibrozil, Hydrodiuril, NovoLog, Levemir, losartan, Metformin, Zoloft, Simvastatin, multivitamin gummies, Neurontin, ropinirole. ALLERGIES: NKDA. LAB DATA AND TESTS: Liver function test unremarkable. White blood cell count 11.4. Glucose 377 when she was in earlier. CT scan of pelvis showed 2 x 4 cm indurated area fluid collection favoring abscess. REVIEW OF SYSTEMS: Twelve systems reviewed. No chest pain or palpitations. She said she has been trying to keep her blood sugars under better control. She denies any blood thinner use. PHYSICAL EXAMINATION: Temperature 99F earlier, pulse 101, blood pressure 140/69. GENERAL: No acute distress. HEENT: Sclera nonicteric. NECK: No JVD. CHEST: Equal excursion, nonlabored breathing. CVS: Regular rate and rhythm. ABDOMEN: Obese, soft. Lower abdomen in midline in the crease above the pubic area indurated, swollen, erythematous area apparently was not drained per the emergency room physician. EXTREMITIES: No edema. No cyanosis. NEURO: Alert, moving extremities grossly symmetrically. IMPRESSION: Abdominal wall abscess in a poorly controlled diabetic with obesity. I feel she would benefit from drainage possible debridement of this anterior wall infection. She understands will go back to viable tissue. She understands will need to pack the wound and will take some time to heal about a month, possibly need other procedure down the road. General risk of anesthesia, deep venous thrombosis, pulmonary embolism, pneumonia but not limited to. She was expressed the importance of keeping the blood sugars under tight control and getting her weight down to reduce the risk of recurrence of these problems.
[2018-04-24] MEDS ORDERED: NON-FORMULARY ITEM (Sertraline Hcl [Zoloft] 200 MG) PO SCH (22:00)
[2018-04-24] MEDS ORDERED: NON-FORMULARY ITEM (Insulin Detemir [Levemir] 60 UNIT) SQ SCH (22:00)
[2018-04-24] MEDS: Requip 0.5 MG PO SCH (22:25)
[2018-04-24] MEDS: Lantus Insulin SQ SCH (22:25)
[2018-04-24] MEDS: NORCO 5/325 MG PO PRN (22:26)
[2018-04-24] MEDS: ZOLOFT 50 MG TABLET PO SCH (22:26)
[2018-04-25] MEDS: NovoLIN R SQ PRN ×6 (00:27→23:14)
[2018-04-25] MEDS: DILAUDID 2 MG INJECTION IV PRN ×6 (00:28→23:12)
[2018-04-25] MEDS: Zosyn 3.375GM/100 Ml D5W 3.375 GM/100 ML IVPB IV SCH ×4 (00:28→16:59)
[2018-04-25 05:37] LABS: BASOPHIL % 0.4 % (0.0-0.4); Basophil (Absolute #) 0.03 (0-0.4); Eosinophil % 2.5 % (0.00-5.0); Granulocyte Absolute (ANC) 4.16 (1.4-6.9); Granulocytes % 51.8 % (36.0-66.0); Hematocrit 33.7 % (35-47); Hemoglobin 11.2 gm/dl (12.0-16.0); Lymphocytes % 37.4 % (24.0-44.0); Mean Corpuscular Hgb Concent. 33.2 g/dl (32-36); Mean Platelet Volume 9.8 fl (6-9.5); Monocyte (Absolute #) 0.63 (0.0-1.3); Monocytes % 7.9 % (0.0-12.0); Platelet Count 228 K/mm3 (150-450); Red Blood Count 4.06 M/mm3 (4.1-5.4); Red Cell Distribution Width 13.4 % (11.5-14.0)
[2018-04-25 05:47] LABS: Mean Corpuscular Hemoglobin 27.5 pg (26-32)
[2018-04-25] MEDS: CLINDAMYCIN-D5W 600 MG/50 ML*** 600 MG/50 ML BAG IV SCH ×3 (05:49→23:12)
[2018-04-25 05:58] LABS: ALBUMIN 3.4 g/dL (3.5-5.0); ALKALINE PHOSPHATASE 91 U/L (38-126); ANION GAP 10.6 MEQ/L (5-15); BLOOD UREA NITROGEN 16 mg/dL (7-17); CHLORIDE 99 mmol/L (98-107); Calcium 8.5 mg/dL (8.4-10.2); Carbon Dioxide 29 mmol/L (22-30); Creatinine 1 0.47 mg/dL (0.52-1.04); Glucose 282 mg/dL (74-106); Potassium 3.2 mmol/L (3.5-5.1); SGOT/AST 47 U/L (14-36); SGPT/ALT 26 U/L (0-35); SODIUM 136 mmol/L (137-145); Total Protein 6.3 g/dL (6.3-8.2)
--- NOTE | 2018-04-25 07:53 | OP ---
SURGERY DATE/TIME: 04/24/2018 1306 PREOPERATIVE DIAGNOSIS: Abdominal wall abscess. POSTOPERATIVE DIAGNOSIS: Necrotizing abdominal wall abscess. PROCEDURE: Drainage with excision of necrotizing abdominal wall abscess 8 x 6 x 3.5 cm deep. SURGEON: Dr. Dejon Cai. ANESTHESIA: General. ESTIMATED BLOOD LOSS: Minimal. INDICATIONS: The patient has history of poorly controlled diabetes, came in with abdominal wall abscess, increased pain and swelling. It was felt she would benefit from drainage and possible debridement. She understood that she would have to have packing afterwards. Risks and benefits explained in detail and not limited to and consent obtained. DESCRIPTION OF PROCEDURE AND FINDINGS: She is taken to the operating room. General anesthesia induced. Abdomen prepped and draped in usual sterile fashion. After official time out and no disagreement with planned procedure, marking out around the indurated area dissection is carried down. There was foul necrotizing, very foul smelling drainage from the cavity necrotizing-type foul smell this was sent for culture. It was felt the safest thing would be to excise all the way around this cavity to healthy tissue she has available given her obesity. This was accomplished in an 8 x 6 x 3.5 cm deep wound down to bleeding viable tissue. The specimen is passed off. Copious irrigation irrigating clear. It was felt that it warranted packing and this packing with soaked normal saline Kerlix to change on a daily basis until the wound care team had any further recommendations. Otherwise continue her current IV antibiotics and manage her IV treatments. She is to follow up in the office in a couple of weeks for re-evaluation if she is discharged soon.
[2018-04-25] MEDS: Sodium Chloride 0.9% 1000 ML 1,000 ML IV SCH ×2 (08:52→18:44)
[2018-04-25] MEDS: Neurontin 400 MG PO SCH ×4 (08:53→23:12)
[2018-04-25] MEDS: Cozaar 50 MG PO SCH (08:53)
[2018-04-25] MEDS: Abilify 10 MG PO SCH ×2 (08:53→09:48)
[2018-04-25] MEDS: hydroDIURIL 25 MG PO SCH (08:54)
--- NOTE | 2018-04-25 09:15 | PCM.NOTE ---
Date and Time: 04/25/18911 Subjective Assessment: She is tolerating po well. Had I&D of abscess yesterday. Thinks she has been more depressed. No suicidal ideation. - Review of Systems Constitutional: No Fever Abdominal/Gastrointestinal: No Vomiting Objective Exam General Appearance: no apparent distress, alert Neurologic Exam: oriented x 3, cooperative Skin Exam: normal color, warm, dry, No rash Respiratory Exam: normal breath sounds, lungs clear, No crackles/rales, No rhonchi, No wheezing Cardiovascular Exam: regular rate/rhythm, normal heart sounds, No murmur Gastrointestinal/Abdomen Exam: soft, other (dressing in place - c/d/i - lower abd) Extremity Exam: normal inspection, No pedal edema, No swelling OBJECTIVE DATA Vital Signs: Vital Signs - 24 hr Temp Pulse Resp BP Pulse Ox 04/25/18 07:18 99 F 86 18 112/56 95 04/25/18 04:00 98.3 F 86 16 109/58 93 L 04/25/18 00:00 98.7 F 85 18 115/66 95 04/24/18 18:02 98.3 F 86 18 119/58 93 L 04/24/18 16:00 98.7 F 96 H 18 105/56 95 04/24/18 14:15 98.5 F 93 H 18 134/62 94 L 04/24/18 12:28 99.2 F 101 H 18 140/69 96 04/24/18 10:00 99.2 F 95 H 16 119/60 94 L Pain Assessment - Last Documented Pain Intensity 4 Pain Scale Used 0-10 Pain Scale Intake and Output: Intake & Output 04/22/18 04/23/18 04/24/18 04/25/18 11:59 11:59 11:59 11:59 Intake Total 150 3364 Output Total 2300 Balance 150 1064 Weight 72.2 kg 72.8 kg Lab Results: Accuchecks Date 04/25/18 Date 04/25/18 Date 04/25/18 Date 04/24/18 Date 04/24/18 Date 04/24/18 Time 07:25 Time 04:00 Time 00:00 Time 20:00 Time 16:00 Time 12:00 Accucheck Value: 236 Accucheck Value: 266 Accucheck Value: 354 Accucheck Value: 425 Accucheck Value: 398 Accucheck Value: 233 Lab Results-Last 24 Hours 04/24/18 04/25/18 04/25/18 Range/Units 05:10 05:33 05:33 WBC 8.0 (4.0-10.5) K/mm3 RBC 4.06 L (4.1-5.4) M/mm3 Hgb 11.2 L D (12.0-16.0) gm/dl Hct 33.7 L (35-47) % MCV 83.0 (78-100) fl MCH 27.5 (26-32) pg MCHC 33.2 (32-36) g/dl RDW 13.4 (11.5-14.0) % Plt Count 228 (150-450) K/mm3 MPV 9.8 H (6-9.5) fl Gran % 51.8 (36.0-66.0) % Eos # (Auto) 0.20 (0-0.5) Absolute Lymphs (auto) 3.00 (1.0-4.6) Absolute Monos (auto) 0.63 (0.0-1.3) Lymphocytes % 37.4 (24.0-44.0) % Monocytes % 7.9 (0.0-12.0) % Eosinophils % 2.5 (0.00-5.0) % Basophils % 0.4 (0.0-0.4) % Absolute Granulocytes 4.16 (1.4-6.9) Basophils # 0.03 (0-0.4) Sodium 136 L (137-145) mmol/L Potassium 3.2 L (3.5-5.1) mmol/L Chloride 99 (98-107) mmol/L Carbon Dioxide 29 (22-30) mmol/L Anion Gap 10.6 (5-15) MEQ/L BUN 16 (7-17) mg/dL Creatinine 0.47 L (0.52-1.04) mg/dL Estimated GFR > 60.0 ML/MIN Glucose 282 H (74-106) mg/dL Hemoglobin A1c > 14.00 H (4.5-6.0) % Calcium 8.5 D (8.4-10.2) mg/dL Total Bilirubin 0.30 (0.2-1.3) mg/dL AST 47 H (14-36) U/L ALT 26 (0-35) U/L Alkaline Phosphatase 91 (38-126) U/L Serum Total Protein 6.3 (6.3-8.2) g/dL Albumin 3.4 L (3.5-5.0) g/dL Radiology Exams: Radiology Procedures Category Date Time Status ABDOMEN AND PELVIS W/0 CONTRAS [CT] Stat Exams 04/24/18 05:07 Completed Assessment/Plan (1) Abscess of skin and subcutaneous tissue Current Visit: Yes Status: Acute Qualifiers: Site of cutaneous abscess: trunk Site of cutaneous abscess of trunk: abdominal wall Qualified Code(s): L02.211 - Cutaneous abscess of abdominal wall Assessment & Plan: s/p I&D. Cultures pending. On Clindamycin and zosyn. Will need to stay until cultures are back. Hx MRSA. Code(s): L02.91 - CUTANEOUS ABSCESS, UNSPECIFIED (2) Diabetes mellitus out of control Current Visit: Yes Status: Acute Qualifiers: Diabetes mellitus type: type 2 Glycemic state: with hyperglycemia Qualified Code(s): E11.65 - Type 2 diabetes mellitus with hyperglycemia Assessment & Plan: We have discussed seeing Dr. Shafer in the past but she has not seen him yet. Ok with having OP appt scheduled with him after her discharge. Code(s): E11.65 - TYPE 2 DIABETES MELLITUS WITH HYPERGLYCEMIA (3) UTI (urinary tract infection) Current Visit: Yes Status: Acute Qualifiers: Urinary tract infection type: acute cystitis Hematuria presence: without hematuria Qualified Code(s): N30.00 - Acute cystitis without hematuria Assessment & Plan: Gram neg zita pending. Code(s): N39.0 - URINARY TRACT INFECTION, SITE NOT SPECIFIED
[2018-04-25] MEDS ORDERED: NON-FORMULARY ITEM (Losartan Potassium [Losartan Potassium] 25 MG) PO SCH (10:00)
[2018-04-25] MEDS ORDERED: NON-FORMULARY ITEM (Aripiprazole [Abilify] 5 MG) PO SCH (10:00)
[2018-04-25] MEDS: Lantus Insulin SQ SCH (23:12)
[2018-04-25] MEDS: ZOLOFT 50 MG TABLET PO SCH (23:13)
[2018-04-25] MEDS: Requip 0.5 MG PO SCH (23:13)
[2018-04-26] MEDS: Zosyn 3.375GM/100 Ml D5W 3.375 GM/100 ML IVPB IV SCH ×5 (00:05→23:29)
[2018-04-26] MEDS: NovoLIN R SQ PRN ×5 (04:52→20:48)
[2018-04-26] MEDS: Sodium Chloride 0.9% 1000 ML 1,000 ML IV SCH ×2 (05:03→19:01)
[2018-04-26] MEDS: DILAUDID 2 MG INJECTION IV PRN (05:03)
[2018-04-26] MEDS: CLINDAMYCIN-D5W 600 MG/50 ML*** 600 MG/50 ML BAG IV SCH ×3 (06:00→21:07)
[2018-04-26] MEDS: hydroDIURIL 25 MG PO SCH (08:15)
[2018-04-26] MEDS: Cozaar 50 MG PO SCH (08:15)
[2018-04-26] MEDS: NORCO 5/325 MG PO PRN (08:16)
[2018-04-26] MEDS: Neurontin 400 MG PO SCH ×4 (08:16→21:08)
[2018-04-26] MEDS: Abilify 10 MG PO SCH (08:16)
[2018-04-26 08:52] LABS: BASOPHIL % 0.4 % (0.0-0.4); Basophil (Absolute #) 0.04 (0-0.4); Eosinophil % 2.1 % (0.00-5.0); Granulocytes % 51.3 % (36.0-66.0); Hematocrit 35.8 % (35-47); Hemoglobin 11.8 gm/dl (12.0-16.0); Lymphocyte (Absolute #) 3.65 (1.0-4.6); Mean Cell Volume 82.3 fl (78-100); Mean Corpuscular Hemoglobin 27.1 pg (26-32); Mean Platelet Volume 10.2 fl (6-9.5); Monocyte (Absolute #) 0.67 (0.0-1.3); Monocytes % 7.2 % (0.0-12.0); Platelet Count 290 K/mm3 (150-450); Red Blood Count 4.35 M/mm3 (4.1-5.4); Red Cell Distribution Width 13.4 % (11.5-14.0); White Blood Count 9.4 K/mm3 (4.0-10.5)
--- NOTE | 2018-04-26 09:00 | PCM.NOTE ---
Date and Time: 04/26/18 0857 Subjective Assessment: Urine culture came back E. coli, ESBL +. Her wound dressing was changed by PT. Pt is having soft stools. Otherwise feeling fine. Pain in lower abd at wound site when she is up moving around. Tmax 100.1 last night. - Review of Systems Abdominal/Gastrointestinal: Diarrhea, No Vomiting Objective Exam General Appearance: no apparent distress, alert Neurologic Exam: oriented x 3, cooperative Skin Exam: normal color, warm, dry, No rash Respiratory Exam: normal breath sounds, lungs clear, No crackles/rales, No rhonchi, No wheezing Cardiovascular Exam: regular rate/rhythm, normal heart sounds, No murmur Gastrointestinal/Abdomen Exam: soft, normal bowel sounds, other (dressing present approx 10x6 cm mid lower abdomen. clean, dry, intact. no surrounding erythema.) Extremity Exam: normal inspection, No pedal edema, No swelling Back Exam: normal inspection, No rash OBJECTIVE DATA Vital Signs: Vital Signs - 24 hr Temp Pulse Resp BP Pulse Ox 04/26/18 08:00 99.4 F 89 18 125/67 94 L 04/26/18 04:00 99.3 F 93 H 18 112/55 93 L 04/26/18 00:27 100.1 F 89 18 128/61 94 L 04/25/18 19:36 99.1 F 87 20 112/57 93 L 04/25/18 16:16 99 F 92 H 18 96/55 92 L 04/25/18 11:04 99.4 F 95 H 20 115/57 93 L Pain Assessment - Last Documented Pain Intensity 6 Pain Scale Used 0-10 Pain Scale Intake and Output: Intake & Output 04/23/18 04/24/18 04/25/18 04/26/18 11:59 11:59 11:59 11:59 Intake Total 150 3364 4089 Output Total 2300 1600 Balance 150 1064 2489 Weight 72.2 kg 72.8 kg 75.3 kg Lab Results: Accuchecks Date 04/26/18 Date 04/26/18 Date 04/26/18 Date 04/25/18 Date 04/25/18 Date 04/25/18 Time 08:20 Time 04:00 Time 00:00 Time 20:00 Time 17:02 Time 10:59 Accucheck Value: 214 Accucheck Value: 302 Accucheck Value: 307 Accucheck Value: 27 Accucheck Value: 326 Assessment/Plan (1) Abscess of skin and subcutaneous tissue Current Visit: Yes Status: Acute Qualifiers: Site of cutaneous abscess: trunk Site of cutaneous abscess of trunk: abdominal wall Qualified Code(s): L02.211 - Cutaneous abscess of abdominal wall Assessment & Plan: culture is pending - must have results before patient is discharged to home. Lab will have some ID tomorrow but no sensitivity then. On IV clindamycin and zosyn. Code(s): L02.91 - CUTANEOUS ABSCESS, UNSPECIFIED (2) UTI (urinary tract infection) Current Visit: Yes Status: Acute Qualifiers: Urinary tract infection type: acute cystitis Hematuria presence: without hematuria Qualified Code(s): N30.00 - Acute cystitis without hematuria Assessment & Plan: ESBL + E. coli. Covered by IV zosyn. Code(s): N39.0 - URINARY TRACT INFECTION, SITE NOT SPECIFIED (3) Diabetes mellitus out of control Current Visit: Yes Status: Acute Qualifiers: Diabetes mellitus type: type 2 Glycemic state: with hyperglycemia Qualified Code(s): E11.65 - Type 2 diabetes mellitus with hyperglycemia Code(s): E11.65 - TYPE 2 DIABETES MELLITUS WITH HYPERGLYCEMIA
[2018-04-26 10:01] LABS: ANION GAP 15.4 MEQ/L (5-15); BLOOD UREA NITROGEN 9 mg/dL (7-17); CHLORIDE 99 mmol/L (98-107); Calcium 8.6 mg/dL (8.4-10.2); Carbon Dioxide 27 mmol/L (22-30); Glucose 272 mg/dL (74-106); Potassium 3.6 mmol/L (3.5-5.1); SODIUM 138 mmol/L (137-145)
[2018-04-26] MEDS: OXYCODONE-ACETAMINOPHEN 10-325 PO PRN ×3 (12:21→22:22)
[2018-04-26] MEDS: Lantus Insulin SQ SCH (21:08)
[2018-04-26] MEDS: Requip 0.5 MG PO SCH (21:08)
[2018-04-26] MEDS: ZOLOFT 50 MG TABLET PO SCH (21:08)
[2018-04-27] MEDS: NovoLIN R SQ PRN ×6 (00:32→21:03)
[2018-04-27] MEDS: Zosyn 3.375GM/100 Ml D5W 3.375 GM/100 ML IVPB IV SCH (05:19)
[2018-04-27] MEDS: OXYCODONE-ACETAMINOPHEN 10-325 PO PRN ×3 (05:19→21:02)
[2018-04-27] MEDS: Sodium Chloride 0.9% 1000 ML 1,000 ML IV SCH ×2 (05:20→18:46)
[2018-04-27] MEDS: CLINDAMYCIN-D5W 600 MG/50 ML*** 600 MG/50 ML BAG IV SCH ×3 (06:49→21:02)
--- NOTE | 2018-04-27 08:41 | PCM.NOTE ---
Date and Time: 04/27/18 0835 Subjective Assessment: She is having more diarrhea. Pain in abdomen is less. Edwige po well. Otherwise feeling well. - Review of Systems Constitutional: No Fever Abdominal/Gastrointestinal: Diarrhea Objective Exam General Appearance: no apparent distress, alert Neurologic Exam: oriented x 3, cooperative Skin Exam: normal color, warm, dry, No rash Ears, Nose, Throat Exam: moist mucous membranes Respiratory Exam: normal breath sounds, lungs clear, No crackles/rales, No rhonchi, No wheezing Cardiovascular Exam: regular rate/rhythm, normal heart sounds, No murmur Gastrointestinal/Abdomen Exam: soft Extremity Exam: No pedal edema, No swelling OBJECTIVE DATA Vital Signs: Vital Signs - 24 hr Temp Pulse Resp BP Pulse Ox 04/27/18 07:33 98 F 95 H 20 124/65 94 L 04/27/18 04:10 98.7 F 76 18 111/55 94 L 04/27/18 00:00 99.0 F 93 H 18 113/58 93 L 04/26/18 20:00 99.1 F 80 16 119/60 93 L 04/26/18 16:00 99.2 F 99 H 20 143/65 93 L 04/26/18 11:52 99.8 F 87 18 122/63 92 L Pain Assessment - Last Documented Pain Intensity 6 Pain Scale Used 0-10 Pain Scale Intake and Output: Intake & Output 04/24/18 04/25/18 04/26/18 04/27/18 11:59 11:59 11:59 11:59 Intake Total 150 3364 4449 4302 Output Total 2300 1600 3100 Balance 150 1064 2849 1202 Weight 72.2 kg 72.8 kg 75.3 kg 75.8 kg Lab Results: Accuchecks Date 04/27/18 Date 04/27/18 Date 04/26/18 Date 04/26/18 Date 04/26/18 Time 04:00 Time 00:00 Time 20:00 Time 16:55 Time 12:27 Accucheck Value: 275 Accucheck Value: 305 Accucheck Value: 414 Accucheck Value: 282 Accucheck Value: 310 Lab Results-Last 24 Hours 04/26/18 04/26/18 Range/Units 08:46 08:46 WBC 9.4 (4.0-10.5) K/mm3 RBC 4.35 (4.1-5.4) M/mm3 Hgb 11.8 L (12.0-16.0) gm/dl Hct 35.8 (35-47) % MCV 82.3 (78-100) fl MCH 27.1 (26-32) pg MCHC 33.0 (32-36) g/dl RDW 13.4 (11.5-14.0) % Plt Count 290 (150-450) K/mm3 MPV 10.2 H (6-9.5) fl Gran % 51.3 (36.0-66.0) % Eos # (Auto) 0.20 (0-0.5) Absolute Lymphs (auto) 3.65 (1.0-4.6) Absolute Monos (auto) 0.67 (0.0-1.3) Lymphocytes % 39.0 (24.0-44.0) % Monocytes % 7.2 (0.0-12.0) % Eosinophils % 2.1 (0.00-5.0) % Basophils % 0.4 (0.0-0.4) % Absolute Granulocytes 4.80 (1.4-6.9) Basophils # 0.04 (0-0.4) Sodium 138 (137-145) mmol/L Potassium 3.6 (3.5-5.1) mmol/L Chloride 99 (98-107) mmol/L Carbon Dioxide 27 (22-30) mmol/L Anion Gap 15.4 H (5-15) MEQ/L BUN 9 (7-17) mg/dL Creatinine 0.50 L (0.52-1.04) mg/dL Estimated GFR > 60.0 ML/MIN Glucose 272 H (74-106) mg/dL Calcium 8.6 (8.4-10.2) mg/dL Assessment/Plan (1) Abscess of skin and subcutaneous tissue Current Visit: Yes Status: Acute Qualifiers: Site of cutaneous abscess: trunk Site of cutaneous abscess of trunk: abdominal wall Qualified Code(s): L02.211 - Cutaneous abscess of abdominal wall Assessment & Plan: On clindamycin IV and zosyn. culture from wound growing strep - sent out today for sensitivity. Code(s): L02.91 - CUTANEOUS ABSCESS, UNSPECIFIED (2) UTI (urinary tract infection) Current Visit: Yes Status: Acute Qualifiers: Urinary tract infection type: acute cystitis Hematuria presence: without hematuria Qualified Code(s): N30.00 - Acute cystitis without hematuria Assessment & Plan: ESBL positive. Will change the zosyn to invanz. Code(s): N39.0 - URINARY TRACT INFECTION, SITE NOT SPECIFIED (3) Diabetes mellitus out of control Current Visit: Yes Status: Acute Qualifiers: Diabetes mellitus type: type 2 Glycemic state: with hyperglycemia Qualified Code(s): E11.65 - Type 2 diabetes mellitus with hyperglycemia Assessment & Plan: add 10 units of lantus in the morning. BS have been uniformly high. There was a recorded BS of 27 on 04/25/18 at 1600 but this was apparently an error as it was covered with 7 units of insulin. Code(s): E11.65 - TYPE 2 DIABETES MELLITUS WITH HYPERGLYCEMIA
[2018-04-27] MEDS: hydroDIURIL 25 MG PO SCH (09:09)
[2018-04-27] MEDS: Neurontin 400 MG PO SCH ×4 (09:09→21:02)
[2018-04-27] MEDS: Cozaar 50 MG PO SCH (09:10)
[2018-04-27] MEDS: Abilify 10 MG PO SCH (09:15)
[2018-04-27] MEDS: Lantus Insulin SQ SCH ×2 (09:15→21:02)
[2018-04-27] MEDS: Invanz 1 GM*** 1 G in Sodium Chloride 100ML MINI-BAG PLUS 100 ML IV SCH (10:13)
[2018-04-27 15:26] LABS: 027 TOX PROD PRESUMPTIVE NEGATIVE (NEGATIVE); TOXIGENIC C. DIFF ORG NEGATIVE (NEGATIVE)
[2018-04-27] MEDS: Requip 0.5 MG PO SCH (21:02)
[2018-04-27] MEDS: ZOLOFT 50 MG TABLET PO SCH (21:02)
[2018-04-27] MEDS: IMODIUM 2 MG PO PRN (21:43)
[2018-04-28] MEDS: NovoLIN R SQ PRN ×5 (00:42→15:44)
[2018-04-28] MEDS: IMODIUM 2 MG PO PRN (01:24)
[2018-04-28] MEDS: OXYCODONE-ACETAMINOPHEN 10-325 PO PRN ×2 (05:14→11:49)
[2018-04-28] MEDS: CLINDAMYCIN-D5W 600 MG/50 ML*** 600 MG/50 ML BAG IV SCH ×2 (05:14→14:17)
[2018-04-28] MEDS: Sodium Chloride 0.9% 1000 ML 1,000 ML IV SCH (05:14)
--- NOTE | 2018-04-28 08:55 | PCM.DS ---
Discharge Summary Date of Admission: 04/24/18 09:16 Admitting Physician: JANE FU Consults: Consults on Case 04/24/18 08:00 Consult Surgery ROUTINE Primary Care Provider: JANE FU Allergies Allergies lisinopril Allergy (Verified 04/24/18 05:03) Hospital Summary - Hospital Course Hospital Course: Pt is a 52 yo female uncontrolled diabetic pt of mine from [facility] who was admitted through the ER with an infection of the pannus and a UTI. She was taken to surgery and found to have a large amount of necrotic tissue which was dissected down to healthy tissue (for full details, see Dr. Kasper's note). Her UTI grew ESBL + E. coli. She was started initially on clindamycin and zosyn; was changed to clindamycin and invanz. Clinically she has recovered quite well - overally she has been feeling well. Afebrile for the past several days. Her abd wound has been dressed by PT and is healing quite well - it is thought that there is no need for a wound vac. She has been having diarrhea but the c. diff was negative. The wound culture is still pending - appears to be a Streptococcal species. Her blood sugars have been elevated; an extra 10 units of Lantus was added to her regimen yesterday with no appreciable effect so far. She will be discharged to home but will return for infusions of IV Invanz tomorrow and the next day (for 7d total IV antibiotics). By then the sensitivity will be available and she can be started on an oral antibiotic for the abdominal wound and will continue with PT for dressing changes. - Vitals & Intake/Output Vital Signs: Vital Signs Temperature 98.5 F 04/28/18 07:55 Pulse Rate 85 04/28/18 07:55 Respiratory Rate 20 04/28/18 07:55 Blood Pressure 151/71 04/28/18 07:55 O2 Sat by Pulse Oximetry 96 04/28/18 07:55 Intake & Output: Intake & Output 04/25/18 04/26/18 04/27/18 04/28/18 11:59 11:59 11:59 11:59 Intake Total 3364 4449 4662 4009 Output Total 2300 1600 3500 2200 Balance 1064 2849 1162 1809 Weight 72.8 kg 75.3 kg 75.8 kg 74.2 kg - Lab Result Diagrams: 04/26/18 08:46 04/26/18 08:46 Lab Results-Last 24 Hrs: Accuchecks Date 04/28/18 Date 04/28/18 Date 04/27/18 Date 04/27/18 Date 04/27/18 Time 04:00 Time 00:00 Time 22:00 Time 15:30 Time 11:30 Accucheck Value: 287 Accucheck Value: 285 Accucheck Value: 279 Accucheck Value: 245 Accucheck Value: 257 Lab Results-Last 24 Hours 04/24/18 04/27/18 Range/Units 13:20 13:40 Stl C. diff Tox B Gene NEGATIVE (NEGATIVE) C.difficile [id number] PRESUMPTIVE NEGATIVE (NEGATIVE) Surg PTH Diagnosis See Note H Micro Results-Entire Visit: Microbiology 04/24/18 13:20 Abscess Culture - Preliminary Abdomen - Not Known ADDITIONAL TESTING IS REQUIRED TO OBTAIN ID AND SENSITIVITY. SPECIMEN HAS BEEN SENT TO REFERENCE LAB, WITH FINAL RESULT EXPECTED WITHIN 96 HOURS. 04/24/18 05:45 Urine Culture - Final Clean Catch Midstream Escherichia Coli Accuchecks Date 04/28/18 Date 04/28/18 Date 04/27/18 Date 04/27/18 Date 04/27/18 Time 04:00 Time 00:00 Time 22:00 Time 15:30 Time 11:30 Accucheck Value: 287 Accucheck Value: 285 Accucheck Value: 279 Accucheck Value: 245 Accucheck Value: 257 - Procedures and Test Procedures and Tests throughout Hospitalization: Therapy Orders & Screens 04/25/18 09:11 PT Eval & Treat ( Order) ROUTINE Reason for Eval:: wound care s/p I&D Diagnosis: Panicular Abscess, diabetes; poor control Discharge Exam General Appearance: no apparent distress, alert Neurologic Exam: oriented x 3, cooperative Skin Exam: normal color, warm, dry, No rash Final Diagnosis/Problem List - Final Discharge Diagnosis/Problem (1) Abscess of skin and subcutaneous tissue Current Visit: Yes Status: Acute Assessment & Plan: Discharge to home; return for wound care in 3d. Sensitivity should be available then. She may return to work in 1 week. (2) UTI (urinary tract infection) Current Visit: Yes Status: Acute Assessment & Plan: Finish 2 more days of IV Invanz for total 7d IV antibiotics. ESBL + E. coli. (3) Diabetes mellitus out of control Current Visit: Yes Status: Acute Assessment & Plan: She can stay on the increased dose of lantus; could increase every 2-3d by 2-4 units as long as ALL blood sugars are over 120. I suspect the BS are increased due to current illness. Outpatient she is to f/u with Dr. Shafer. - Discharge Disposition: Home, Self-Care Condition: Good Prescriptions: New Oxycodone / APAP 10/325 mg [Oxycodone-Acetaminophen 10-325] 1 tab PO Q6H PRN PRN #28 tablet MDD 4 PRN Reason: Pain Continue Insulin Detemir [Levemir] 60 unit SQ HS Insulin Aspart [NovoLOG Insulin] 1 unit SQ UD Simvastatin 80 mg PO DAILY Sertraline HCl [Zoloft] 200 mg PO HS Losartan Potassium 25 mg PO DAILY Hydrochlorothiazide 25 mg [hydroDIURIL 25 MG] 25 mg PO DAILY Gemfibrozil 600 mg [Lopid 600 mg] 600 mg PO BID Aripiprazole [Abilify] 5 mg PO DAILY Metformin HCl 1000 mg [Glucophage 1000 MG] 1,000 mg PO BID Gabapentin [Neurontin] 400 mg PO QID Ropinirole HCl 1 mg PO HS Folic Acid/Multivit-Min/Lutein [Multi-Vitamin Gummies] 1 each PO DAILY Additional Instructions: Call Tuesday for final culture results (wound). Return to work next Tuesday. May increase levemir by 2-4 units every 2 days as long as blood sugars are all over 120. Would decrease the amount if having any blood sugars under 100. Follow up outpatient with Dr. Shafer. Follow up with: ARI GUNTER [COURTESY STAFF] - 05/08/18 8:50 am ([facility]) JANE FU [Primary Care Provider] - 1 Week
[2018-04-28] MEDS: Neurontin 400 MG PO SCH ×2 (09:22→14:17)
[2018-04-28] MEDS: Abilify 10 MG PO SCH (09:22)
[2018-04-28] MEDS: Cozaar 50 MG PO SCH (09:22)
[2018-04-28] MEDS: hydroDIURIL 25 MG PO SCH (09:22)
[2018-04-28] MEDS: Lantus Insulin SQ SCH (09:23)
[2018-04-28] MEDS: Invanz 1 GM*** 1 G in Sodium Chloride 100ML MINI-BAG PLUS 100 ML IV SCH (09:31)
[2018-04-28 16:25] VITALS: BP 122/87; PULSE 82; O2SAT 94
== END 2018-04-28 15:50 | disposition home or self-care (01) | DRG 603 ==
LOC: ED 04:34 → MED SURG 07:57 → OBSVTOIN 09:16
PROVIDERS: ADMIT Family Medicine; ATTEND Family Medicine
PROC: 0HB7XZZ Excision of Abdomen Skin, External Approach (ICD-10-PCS; principal; 2018-04-24)
DX: L02.211 Cutaneous abscess of abdominal wall (principal); N39.0 Urinary tract infection, site not specified; B96.20 Unspecified Escherichia coli [E. coli] as the cause of diseases classified elsewhere; E11.65 Type 2 diabetes mellitus with hyperglycemia; R19.7 Diarrhea, unspecified; I10 Essential (primary) hypertension; Z79.4 Long term (current) use of insulin; Z79.899 Other long term (current) drug therapy
CPT/HCPCS: 36000; 36415; 74176; 80048; 80053; 81001; 82962; 83036; 83605; 85025; 87070; 87077; 87086; 87186; 87493; 88304; 96360; 96361; 96365; 96367; 96374; 96375; 99285; J1170; J1335; J2250; J2370; J2405; J2543; J2704; J3010; A9270-GY

== ENCOUNTER 2020-09-06 06:00 | Emergency (ER) | payer OTHER ==
--- NOTE | 2020-09-06 06:46 | ERPHSYRPT ---
<ASHLEY LOAIZA - Last Filed: 09/06/20 09:01> - History of Present Illness Source: patient Exam Limitations: no limitations Patient Subjective Stated Complaint: Patient states " Around 0300 this am I started feeling really weird and started having numbness in my right hand and then I felt like I was going round in circles. My balance started to feel weird like I was leaning to my right side and then I became worried I was possibly having a stroke." Triage Nursing Assessment: . Timing/Duration: hour(s) (3.5), constant, gradual onset, worse Severity: moderate Character of Deficits: altered sensation, RLE, RUE Deficits: off balance Baseline/Normal Cognition: alert oriented x 3 Current Cognition: alert oriented x 3 Associated Symptoms: numbness/tingling in legs/feet, No confusion Hx Tetanus, Diphtheria Vaccination/Date Given: Yes Hx Influenza Vaccination/Date Given: Yes Hx Pneumococcal Vaccination/Date Given: No Immunizations Up to Date: Yes <SERENITY WANG - Last Filed: 09/07/20 23:54> - History of Present Illness Time Seen by Provider: 09/06/20 06:22 Physician History: 55 years old female with history of hypertension, hyperlipidemia, diabetes mellitus presented in the ER with chief complaint of gradually worsening numbness since 3 AM today 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 Patient reports she started to feel perioral numbness followed by numbness in right hand extending proximally to involve the entire right upper extremity and later on started to have numbness in the right lower extremity. Patient reports she was walking and it was feeling she is cannot walk straight and has to make a [place] on. Denies any headache, visual disturbance, difficulty speech or focal weakness. Denies any fall or head trauma. No chest pain palpitations or shortness of breath reported. (SERENITY WANG) Allergies/Adverse Reactions: lisinopril Allergy (Verified 09/06/20 06:22) Home Medications: Aripiprazole [Abilify] 10 mg PO DAILY 10/21/15 [History] Gemfibrozil 600 mg [Lopid 600 mg] 600 mg PO BID 10/21/15 [History] Hydrochlorothiazide 25 mg [hydroDIURIL 25 MG] 25 mg PO DAILY 10/21/15 [History] Insulin Aspart [NovoLOG Insulin] 25 unit SQ UD 10/21/15 [History] Insulin Detemir [Levemir] 60 unit SQ BID 10/21/15 [History] Losartan Potassium 25 mg PO DAILY 10/21/15 [History] Metformin HCl 1000 mg [Glucophage 1000 MG] 1,000 mg PO BID 10/21/15 [History] Simvastatin 80 mg PO DAILY 10/21/15 [History] Gabapentin [Neurontin] 400 mg PO QID 04/24/18 [History] Ropinirole HCl 1 mg PO HS 04/24/18 [History] PARoxetine HCl [Paxil] 40 mg PO DAILY 09/06/20 [History] Travel Risk - International Travel Have you traveled outside of the country in past 3 weeks: No - Coronavirus Screening Are you exhibiting any of the following symptoms?: No Close contact with a COVID-19 positive Pt in past 14-21 Days: No - Vaccine Status Have you recieved a Covid-19 vaccination: Yes Teaching Supervisor: [place] - Vaccination Dates Date of 2cond Vaccination (if applicable): 05/26/20 <SERENITY WANG - Last Filed: 09/07/20 23:54> - Review of Systems Constitutional: No Symptoms Eyes: No Symptoms Ears, Nose, & Throat: No Symptoms Respiratory: No Symptoms Cardiac: No Symptoms Abdominal/Gastrointestinal: No Symptoms Genitourinary Symptoms: No Symptoms Musculoskeletal: No Symptoms Skin: No Symptoms Neurological: Sensory Changes Psychological: No Symptoms Endocrine: No Symptoms Hematologic/Lymphatic: No Symptoms Immunological/Allergic: No Symptoms <SERENITY WANG - Last Filed: 09/07/20 23:54> - Past Medical History Pertinent Past Medical History: Yes Neurological History: No Pertinent History ENT History: No Pertinent History Cardiac History: High Cholesterol, Hypertension Respiratory History: No Pertinent History Endocrine Medical History: Diabetes Type II Musculoskeletal History: Arthritis GI Medical History: No Pertinent History History: No Pertinent History Psycho-Social History: Anxiety, Depression Female Reproductive Disorders: No Pertinent History Other Medical History: + WOUND CULTURE - ENTEROCOCCUS FAECALIS. ANXIETY. DEPRESSION. BREAST REDUCTION. I&D PERIRECTAL ABSCESS PREVIOUSLY. NEUROPATHY - Past Surgical History Past Surgical History: Yes Neuro Surgical History: No Pertinent History Cardiac: No Pertinent History Respiratory: No Pertinent History Gastrointestinal: Appendectomy Genitourinary: No Pertinent History Musculoskeletal: No Pertinent History Female Surgical History: Hysterectomy Other Surgical History: breast reduction, I and D perirectal abcess - Social History Smoking Status: Never smoker Exposure to second hand smoke: No Drug Use: none Patient Lives Alone: Yes - Female History Hx Now: No <FELIPESERENITY - Last Filed: 09/07/20 23:54> - [place] Coma Scale Best Eye Response ([place]): (4) open spontaneously Best Verbal Response ([place]): (5) oriented Best Motor Response ([place]): (6) obeys commands [place] Total: 15 - Physical Exam General Appearance: no apparent distress, alert Eye Exam: bilateral eye: normal inspection, PERRL, EOMI Ears, Nose, Throat Exam: normal ENT inspection, TMs normal, pharynx normal, moist mucous membranes Neck Exam: normal inspection, non-tender, supple, full range of motion Respiratory: normal breath sounds, lungs clear Cardiovascular: regular rate/rhythm, normal heart sounds Gastrointestinal: soft, normal bowel sounds, No tenderness Back Exam: normal inspection, normal range of motion, No CVA tenderness Extremity Exam: normal inspection, normal range of motion, pelvis stable Mental Status: alert, oriented x 3, 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 Exam: normal hearing, normal speech, PERRL Coordination/Gait: normal finger to nose, positive Romberg's sign, abnormal gait, No normal cerebellar function Motor/Sensory: no motor deficit, no pronator drift, negative Babinski's sign, sensory deficit Skin Exam: normal color SpO2 Interpretation: normal SpO2: 98 O2 Delivery: Room Air <SERENITY WANG - Last Filed: 09/07/20 23:54> - Nursing Vital Signs Nursing Vital Signs: Initial Vital Signs Temperature 98.3 F 09/06/20 06:06 Pulse Rate 91 H 09/06/20 06:06 Respiratory Rate 18 09/06/20 06:06 Blood Pressure 169/85 09/06/20 06:06 O2 Sat by Pulse Oximetry 98 09/06/20 06:06 Pain Scale Pain Intensity 0 Ordered Tests: Medication Summary Discontinued Medications Generic Name Dose Route Start Last Admin Trade Name Freq PRN Reason Stop Dose Admin Alteplase, Recombinant 6.6 mg 09/06/20 07:18 09/06/20 07:21 Activase 100 Mg IV 09/06/20 07:19 6.6 mg STAT STA Administration Ceftriaxone Sodium/Dextrose 1 g in 50 mls @ 100 mls/hr 09/06/20 09:32 09/06/20 09:45 Rocephin 1 Gm-D5w 50 Ml Bag IV 09/06/20 10:01 100 mls/hr STAT STA 100 mls/hr Administration Ceftriaxone Sodium/Dextrose Confirm 09/06/20 09:43 Rocephin 1 Gm-D5w 50 Ml Bag Administered 09/06/20 09:44 Dose 1 g in 50 mls @ ud IV .STK-[facility] ONE Insulin Human Regular 15 unit 09/06/20 07:20 09/06/20 08:39 Humulin R IV 09/06/20 07:21 15 unit STAT ONE Administration Insulin Human Regular Confirm 09/06/20 08:39 Humulin R Administered 09/06/20 08:40 Dose 15 unit .ROUTE .STK-MED ONE Lab/Rad Data: Laboratory Result Diagrams 09/06/20 06:15 09/06/20 06:15 Laboratory Results 09/06/20 09/06/20 09/06/20 Range/Units 09:44 08:09 06:17 WBC (4.0-10.5) K/mm3 RBC (4.1-5.4) M/mm3 Hgb (12.0-16.0) gm/dl Hct (35-47) % MCV (78-100) fl MCH (26-32) pg MCHC (32-36) g/dl RDW (11.5-14.0) % Plt Count (150-450) K/mm3 MPV (7.5-11.0) fl Gran % (36.0-66.0) % Eos # (Auto) (0-0.5) Absolute Lymphs (auto) (1.0-4.6) Absolute Monos (auto) (0.0-1.3) Lymphocytes % (24.0-44.0) % Monocytes % (0.0-12.0) % Eosinophils % (0.00-5.0) % Basophils % (0.0-0.4) % Absolute Granulocytes (1.4-6.9) Basophils # (0-0.4) PT (9.95-12.35) SECONDS INR (0.8-3.0) APTT (25.3-37.0) SECONDS Sodium (137-145) mmol/L Potassium (3.5-5.1) mmol/L Chloride (98-107) mmol/L Carbon Dioxide (22-30) mmol/L Anion Gap (5-15) MEQ/L BUN (7-17) mg/dL Creatinine (0.52-1.04) mg/dL Estimated GFR ML/MIN Glucose (74-106) mg/dL POC Glucometer 223 H 432 H (74 to 106) mg/dL Calcium (8.4-10.2) mg/dL Total Bilirubin (0.2-1.3) mg/dL AST (14-36) U/L ALT (0-35) U/L Alkaline Phosphatase (38-126) U/L Troponin I (0.000-0.034) ng/mL Serum Total Protein (6.3-8.2) g/dL Albumin (3.5-5.0) g/dL Urine Color YELLOW (YELLOW) Urine Appearance CLOUDY (CLEAR) Urine pH 5.0 (5-6) Ur Specific [place] 1.058 (1.005-1.025) Urine Protein 30 (Negative) Urine Ketones NEGATIVE (NEGATIVE) Urine Blood LARGE (0-5) Matthew/ul Urine Nitrite NEGATIVE (NEGATIVE) Urine Bilirubin NEGATIVE (NEGATIVE) Urine Urobilinogen NEGATIVE (0-1) mg/dL Ur Leukocyte Esterase LARGE (NEGATIVE) Urine WBC (Auto) >100 (0-5) /HPF Urine RBC (Auto) >101 (0-2) /HPF U Epithel Cells (Auto) RARE (FEW) /HPF Urine Bacteria (Auto) FEW (NEGATIVE) /HPF Urine Culture Reflexed YES (NO) Urine Glucose >=500 (NEGATIVE) mg/dL 09/06/20 09/06/20 09/06/20 Range/Units 06:15 06:15 06:15 WBC (4.0-10.5) K/mm3 RBC (4.1-5.4) M/mm3 Hgb (12.0-16.0) gm/dl Hct (35-47) % MCV (78-100) fl MCH (26-32) pg MCHC (32-36) g/dl RDW (11.5-14.0) % Plt Count (150-450) K/mm3 MPV (7.5-11.0) fl Gran % (36.0-66.0) % Eos # (Auto) (0-0.5) Absolute Lymphs (auto) (1.0-4.6) Absolute Monos (auto) (0.0-1.3) Lymphocytes % (24.0-44.0) % Monocytes % (0.0-12.0) % Eosinophils % (0.00-5.0) % Basophils % (0.0-0.4) % Absolute Granulocytes (1.4-6.9) Basophils # (0-0.4) PT 11.3 (9.95-12.35) SECONDS INR 1.00 (0.8-3.0) APTT 27.6 (25.3-37.0) SECONDS Sodium 132 L (137-145) mmol/L Potassium 3.6 (3.5-5.1) mmol/L Chloride 92 L (98-107) mmol/L Carbon Dioxide 26 (22-30) mmol/L Anion Gap 17.3 H (5-15) MEQ/L BUN 12 (7-17) mg/dL Creatinine 0.53 (0.52-1.04) mg/dL Estimated GFR > 60.0 ML/MIN Glucose 418 H (74-106) mg/dL POC Glucometer (74 to 106) mg/dL Calcium 9.9 (8.4-10.2) mg/dL Total Bilirubin 0.40 (0.2-1.3) mg/dL AST 16 (14-36) U/L ALT 18 (0-35) U/L Alkaline Phosphatase 72 (38-126) U/L Troponin I < 0.012 (0.000-0.034) ng/mL Serum Total Protein 7.0 (6.3-8.2) g/dL Albumin 4.5 (3.5-5.0) g/dL Urine Color (YELLOW) Urine Appearance (CLEAR) Urine pH (5-6) Ur Specific [place] (1.005-1.025) Urine Protein (Negative) Urine Ketones (NEGATIVE) Urine Blood (0-5) Matthew/ul Urine Nitrite (NEGATIVE) Urine Bilirubin (NEGATIVE) Urine Urobilinogen (0-1) mg/dL Ur Leukocyte Esterase (NEGATIVE) Urine WBC (Auto) (0-5) /HPF Urine RBC (Auto) (0-2) /HPF U Epithel Cells (Auto) (FEW) /HPF Urine Bacteria (Auto) (NEGATIVE) /HPF Urine Culture Reflexed (NO) Urine Glucose (NEGATIVE) mg/dL 09/06/20 Range/Units 06:15 WBC 8.9 (4.0-10.5) K/mm3 RBC 4.99 (4.1-5.4) M/mm3 Hgb 13.8 (12.0-16.0) gm/dl Hct 40.9 (35-47) % MCV 82.0 (78-100) fl MCH 27.7 (26-32) pg MCHC 33.7 (32-36) g/dl RDW 13.1 (11.5-14.0) % Plt Count 305 (150-450) K/mm3 MPV 10.6 (7.5-11.0) fl Gran % 35.6 L (36.0-66.0) % Eos # (Auto) 0.36 (0-0.5) Absolute Lymphs (auto) 4.73 H (1.0-4.6) Absolute Monos (auto) 0.64 (0.0-1.3) Lymphocytes % 53.0 H (24.0-44.0) % Monocytes % 7.2 (0.0-12.0) % Eosinophils % 4.0 (0.00-5.0) % Basophils % 0.2 (0.0-0.4) % Absolute Granulocytes 3.17 (1.4-6.9) Basophils # 0.02 (0-0.4) PT (9.95-12.35) SECONDS INR (0.8-3.0) APTT (25.3-37.0) SECONDS Sodium (137-145) mmol/L Potassium (3.5-5.1) mmol/L Chloride (98-107) mmol/L Carbon Dioxide (22-30) mmol/L Anion Gap (5-15) MEQ/L BUN (7-17) mg/dL Creatinine (0.52-1.04) mg/dL Estimated GFR ML/MIN Glucose (74-106) mg/dL POC Glucometer (74 to 106) mg/dL Calcium (8.4-10.2) mg/dL Total Bilirubin (0.2-1.3) mg/dL AST (14-36) U/L ALT (0-35) U/L Alkaline Phosphatase (38-126) U/L Troponin I (0.000-0.034) ng/mL Serum Total Protein (6.3-8.2) g/dL Albumin (3.5-5.0) g/dL Urine Color (YELLOW) Urine Appearance (CLEAR) Urine pH (5-6) Ur Specific [place] (1.005-1.025) Urine Protein (Negative) Urine Ketones (NEGATIVE) Urine Blood (0-5) Amtthew/ul Urine Nitrite (NEGATIVE) Urine Bilirubin (NEGATIVE) Urine Urobilinogen (0-1) mg/dL Ur Leukocyte Esterase (NEGATIVE) Urine WBC (Auto) (0-5) /HPF Urine RBC (Auto) (0-2) /HPF U Epithel Cells (Auto) (FEW) /HPF Urine Bacteria (Auto) (NEGATIVE) /HPF Urine Culture Reflexed (NO) Urine Glucose (NEGATIVE) mg/dL - Progress Counseled pt/family regarding: lab results, diagnosis, rad results <ASHLEY LOAIZA - Last Filed: 09/06/20 09:01> <SERENITY WANG - Last Filed: 09/07/20 23:54> - Progress Progress Note: 09/06/20 07:21 At 07 100, shift change, the teleneurologist, Cindy Saenz, called to notify me she is recommending infusion of TPA. The patient was advised of the risks and the benefits by the neurologist. The patient agrees to proceed. The recommended dose of the bolus is 6.6 mg intravenously followed by an intravenous infusion of 59.4 mg. 09/06/20 09:02 CTA of head reveals no evidence of any stenosis or occlusive arterial disease/process within the anterior or posterior arterial systems. CTA of the neck reveals patent bilateral internal carotid arteries Medical decision making: I spoke with Dr. Holloway who is covering for Dr. Eduardo for the weekend and I reviewed the patient history, condition and emergent department work-up findings. He declines admission of this patient. He prefers the patient be transferred to a facility to has neurology. I agree with him. The patient prefers [facility] in [facility] if possible. I then made a call to [facility] and spoke with the neurologist, Dr. Mariano. I reviewed the patient history, condition, emergency department work-up findings including the CTA of the head, CTA of the head, CTA of the neck. He states that he is available and willing to provide care from the neurologic standpoint. We are waiting hospitalist callback from [facility] in order to complete the transfer to their facility. 09/06/20 09:15 Medical decision making: Dr. Sandoval, the hospitalist covering for [facility], returned my call promptly and I reviewed the patient history, condition, laboratory and radiographic work-up results with him. He accepts the patient for transfer to [facility]. (ASHLEY LOAIZA) 09/06/20 06:52 Patient is made stroke activate, prompt CT head is obtained which is negative for any intracranial bleed, midline shift or mass-effect. [facility] neurology consult is currently evaluating patient. Care is transferred to Dr. Loaiza at shift change. (SERENITY WANG) - Departure Departure Disposition: Transfer Critical Care Time: Yes Critical Care Time(excluding separately billable procedures): Critical 30-74 mins <ASHLEY LOAIZA - Last Filed: 09/06/20 09:01> <SERENITY WANG - Last Filed: 09/07/20 23:54> - Departure Clinical Impression: Acute CVA (cerebrovascular accident), Hyperglycemia Condition: Stable Referrals: DOCTOR,NO FAMILY [Primary Care Provider] -
[2020-09-06 06:49] LABS: Absolute Neutrophil Ct (ANC) 3.17 (1.4-6.9); BASOPHIL % 0.2 % (0.0-0.4); Basophil (Absolute #) 0.02 (0-0.4); Eosinophil (Absolute #) 0.36 (0-0.5); Hematocrit 40.9 % (35-47); Hemoglobin 13.8 gm/dl (12.0-16.0); Lymphocyte (Absolute #) 4.73 (1.0-4.6); Mean Corpuscular Hemoglobin 27.7 pg (26-32); Mean Corpuscular Hgb Concent. 33.7 g/dl (32-36); Mean Platelet Volume 10.6 fl (7.5-11.0); Monocyte (Absolute #) 0.64 (0.0-1.3); Monocytes % 7.2 % (0.0-12.0); Neutrophil % 35.6 % (36.0-66.0); Platelet Count 305 K/mm3 (150-450); Red Blood Count 4.99 M/mm3 (4.1-5.4); Red Cell Distribution Width 13.1 % (11.5-14.0); White Blood Count 8.9 K/mm3 (4.0-10.5)
[2020-09-06 06:50] LABS: PROTIME 11.3 SECONDS (9.95-12.35)
[2020-09-06 06:53] LABS: PTT 27.6 SECONDS (25.3-37.0)
[2020-09-06 06:56] LABS: ALBUMIN 4.5 g/dL (3.5-5.0); ALKALINE PHOSPHATASE 72 U/L (38-126); ANION GAP 17.3 MEQ/L (5-15); BLOOD UREA NITROGEN 12 mg/dL (7-17); CHLORIDE 92 mmol/L (98-107); Calcium 9.9 mg/dL (8.4-10.2); Carbon Dioxide 26 mmol/L (22-30); Creatinine 1 0.53 mg/dL (0.52-1.04); EST GLOMERULAR FILTRATION RATE > 60.0 ML/MIN; Glucose 418 mg/dL (74-106); Potassium 3.6 mmol/L (3.5-5.1); SGOT/AST 16 U/L (14-36); SGPT/ALT 18 U/L (0-35); SODIUM 132 mmol/L (137-145)
[2020-09-06] MEDS ORDERED: Activase 100 MG IV STA (07:18)
[2020-09-06] MEDS ORDERED: HUMULIN R IV ONE (07:20)
--- NOTE | 2020-09-06 07:59 | XRAY ---
Indication: Right-sided numbness and weakness. Multiple contiguous axial images obtained through the head without contrast. Comparison: None Age-appropriate global atrophy and mild periventricular degenerative micro-ischemia bilaterally. No acute intracranial hemorrhage, abnormal extra-axial fluid collection, or mass effect. Fourth ventricle is midline without hydrocephalus. Bony calvarium intact. Visualized paranasal sinuses and mastoid air cells are clear. Impression: Nonacute senile brain. Comment: Preliminary interpretation was made by [facility]. No critical discrepancy.
[2020-09-06] MEDS ORDERED: HUMULIN R ONE (08:39)
[2020-09-06 09:27] LABS: Appearance CLOUDY (CLEAR); Bacteria FEW /HPF (NEGATIVE); Bilirubin NEGATIVE (NEGATIVE); Blood LARGE Ery/ul (0-5); Epithelial Cells RARE /HPF (FEW); Glucose >=500 mg/dL (NEGATIVE); Ketones NEGATIVE (NEGATIVE); Leukocyte Esterase LARGE (NEGATIVE); Nitrite NEGATIVE (NEGATIVE); Protein,Urine Dip 30 (Negative); Specific Gravity 1.058 (1.005-1.025); Urobilinogen NEGATIVE mg/dL (0-1); WBC >100 /HPF (0-5)
[2020-09-06 09:28] LABS: RBC >101 /HPF (0-2)
[2020-09-06] MEDS ORDERED: ROCEPHIN 1 Gm-D5w 50 ml Bag** 1 G/50 ML IVPB IV STA (09:32)
[2020-09-06] MEDS ORDERED: ROCEPHIN 1 Gm-D5w 50 ml Bag** 1 G/50 ML IVPB IV ONE (09:43)
[2020-09-06 09:51] VITALS: BP 146/93; PULSE 88
--- NOTE | 2020-09-06 17:26 | XRAY ---
Indication: Right-sided weakness and numbness. TPA therapy. Conventional contrast enhanced CTA neck performed using 80 cc Isovue 370 contrast. Two-dimensional sagittal and coronal reformatted images obtained. Additional 3-dimensional reformatted images obtained using a separate workstation. Comparison: None Visualized aortic arch demonstrates minimal arteriosclerotic calcifications without aneurysm/dissection. Normal patent branching right brachiocephalic, left common carotid, and left subclavian arteries. Minimal calcifications origin left subclavian artery. Examination of the right carotid circulation demonstrates normal CTA appearance to the common carotid, carotid bulb, internal carotid, and external carotid arteries. Examination of the left carotid circulation demonstrates normal widely patent common carotid artery. Very minimal eccentric calcified plaquing carotid bulb slightly extending into the origin of the internal carotid artery. External carotid artery normal in CTA appearance. Vertebral arteries are bilaterally patent without critical stenosis, obstruction, or AV malformation. Visualized soft tissues demonstrates scattered centimeter/subcentimeter cervical lymph nodes bilaterally. There are benign enhances homogeneously. Supra and infraglottic airway are widely patent. Cervical spine intact with lordotic reversal centered at C5 and mild C5-C6 degenerative disc space narrowing with endplate spurring. Lung apices clear. CT head and CTA head reported separately. Impression: 1. Minimal arteriosclerotic calcifications left carotid bulb and left internal carotid artery without critical stenosis/obstruction. Normal CTA right carotid arteries and vertebral arteries. 2. Incidental cervical lordotic reversal and mild C5-C6 degenerative disc disease. Comment: Preliminary interpretation was made by [facility]. No critical discrepancy.
--- NOTE | 2020-09-06 17:28 | XRAY ---
Indication: Right-sided weakness and numbness. TPA therapy. Conventional contrast enhanced CTA head performed using 80 cc Isovue 370 contrast. Two-dimensional sagittal and coronal reformatted images obtained. Additional 3-dimensional reformatted images obtained using a separate workstation. Comparison: None CT head and CTA neck reported separately. Distal internal carotid arteries are bilaterally symmetric with minimal arteriosclerotic calcifications involving the parasellar segments without critical stenosis, obstruction, or AV malformation. Normal carotid terminus with normal branching A1 and M1 segments bilaterally. More distal anterior cerebral, middle cerebral, and anterior communicating arteries are normal in CTA appearance. Anatomic variant for origin right posterior cerebral artery. Basilar artery is normal in course and caliber with normal CTA appearance to the left posterior cerebral, left/right superior cerebellar, and left/right anterior inferior cerebellar arteries. Impression: Minimal calcifications both parasellar internal carotid arteries without critical stenosis/obstruction. Normal variant origin right posterior cerebral artery. Remaining CTA head with contrast exam is negative. Comment: Preliminary interpretation was made by [facility]. No critical discrepancy.
[2020-09-07 23:54] VITALS: O2SAT 98
== END 2020-09-06 09:40 | disposition short-term general hospital (02) ==
LOC: ED 06:00
DX: I63.9 Cerebral infarction, unspecified (principal); E11.65 Type 2 diabetes mellitus with hyperglycemia; I10 Essential (primary) hypertension; E78.5 Hyperlipidemia, unspecified; Z79.899 Other long term (current) drug therapy; E78.00 Pure hypercholesterolemia, unspecified
CPT/HCPCS: 36000; 36415; 70450; 70496; 70498; 80053; 81001; 82947; 84484; 85025; 85610; 85730; 87077; 87086; 87186; 93005; 93041; 96374; 96375; 99285; 99291; J0696; J1815; J2997; Q3014

== ENCOUNTER 2021-09-27 14:16 | Inpatient (IN) | payer OTHER ==
[2021-09-27] MEDS ORDERED: Zofran 4 MG/2 ML VIAL IV ONE (15:35)
[2021-09-27] MEDS ORDERED: MORPHINE SULFATE 4 MG INJ IV ONE (15:35)
[2021-09-27] MEDS ORDERED: MORPHINE SULFATE 4 MG INJ ONE (15:40)
[2021-09-27] MEDS ORDERED: Zofran 4 MG/2 ML VIAL ONE (15:40)
[2021-09-27 15:43] LABS: Absolute Neutrophil Ct (ANC) 7.56 x10^3/uL (1.4-6.9); Basophil (Absolute #) 0.07 x10^3/uL (0-0.4); Eosinophil % 1.2 % (0.00-5.0); Eosinophil (Absolute #) 0.13 x10^3/uL (0-0.5); Hematocrit 32.1 % (35-47); Hemoglobin 10.1 g/dL (12.0-16.0); Lymphocyte (Absolute #) 2.46 x10^3/uL (1.0-4.6); Lymphocytes % 21.8 % (24.0-44.0); Mean Cell Volume 82.7 fL (78-100); Mean Corpuscular Hgb Concent. 31.5 g/dL (32-36); Mean Platelet Volume 10.4 fL (7.5-11.0); Monocytes % 8.9 % (0.0-12.0); Neutrophil % 66.9 % (36.0-66.0); Platelet Count 329 x10^3/uL (150-450); Red Blood Count 3.88 x10^6/uL (4.1-5.4); Red Cell Distribution Width 14.3 % (11.5-14.0); White Blood Count 11.3 x10^3/uL (4.0-10.5)
[2021-09-27 15:52] LABS: ALBUMIN 3.4 g/dL (3.5-5.0); ALKALINE PHOSPHATASE 105 U/L (38-126); ANION GAP 15.1 MEQ/L (5-15); BLOOD UREA NITROGEN 13 mg/dL (7-17); CHLORIDE 95 mmol/L (98-107); Calcium 8.7 mg/dL (8.4-10.2); Carbon Dioxide 25 mmol/L (22-30); Creatinine 1 0.64 mg/dL (0.52-1.04); EST GLOMERULAR FILTRATION RATE > 60.0 ML/MIN; Glucose 431 mg/dL (74-106); Potassium 4.8 mmol/L (3.5-5.1); SGOT/AST 15 U/L (14-36); SGPT/ALT 10 U/L (0-35); SODIUM 130 mmol/L (137-145); Total Protein 6.8 g/dL (6.3-8.2)
[2021-09-27] MEDS ORDERED: PIPERACILLIN/TAZOBACTAM 3.375 GM in Sodium Chloride 100ML MINI-BAG PLUS 100 ML IV ONE (15:59)
[2021-09-27] MEDS ORDERED: VANCOMYCIN 2 GRAM/400 ML BAG 2 GM/400 ML PIGGYBACK IV ONE ×2 (16:00→16:52)
[2021-09-27] MEDS ORDERED: Sodium Chloride 100ML MINI-BAG PLUS 100 ML IV ONE (16:06)
[2021-09-27] MEDS ORDERED: PIPERACILLIN/TAZOBACTAM IV ONE ×2 (16:06→21:52)
--- NOTE | 2021-09-27 16:35 | ERPHSYRPT ---
- History of Present Illness Time Seen by Provider: 09/27/21 14:20 Source: patient Exam Limitations: no limitations Patient Subjective Stated Complaint: C/O infected wound to right foot that started 2 weeks ago. Triage Nursing Assessment: Patient ambulated back to ED with an unsteady gait; not able to bear entire body weight on right foot. She is alert and oriented and answering questions appropriately. WOUND TO RIGHT FOOT SECOND TOE ENCOMPASSES THE ENTIRE TOE. THE TIP IS NECROTIC WITH BLACK ESCAR MEASURING 1.2CM X 1.5CM. THE OUTER ASPECT OF THE TOE (INBETWEEN THE 2ND AND 3RD TOES) IS OPEN AND COVERED IN SLOUGH MEASURING 1.2CM X 2.7CM. Physician History: 56 years old female with history of stroke, poorly controlled diabetes mellitus, hypertension presented in the ER with 2 weeks history of right second toe swe lling and pain with progressive worsening. Patient reports she had a abrasion from new shoes and it gradually started worsening with increasing swelling and redness initially in the tip of the toe and then gradually extending proximally on the dorsum of the foot. Pain is moderate intensity sharp nature and she noticed couple days ago having blackening of the tip of toe with peeling off skin at the top of toe. Subjective feeling of fever and chills. Timing/Duration: week(s) (2), constant, gradual onset, worse Quality: painful Severity: moderate Location: feet Possible Causes: other Associated Symptoms: rash, swelling/mass/lumps Allergies/Adverse Reactions: lisinopril Allergy (Verified 09/27/21 14:37) Home Medications: ARIPiprazole [Abilify] 10 mg PO DAILY 10/21/15 [History] Gemfibrozil [Lopid] 600 mg PO BID 10/21/15 [History] Hydrochlorothiazide 25 mg [hydroDIURIL 25 MG] 25 mg PO DAILY 10/21/15 [History] Insulin Aspart [NovoLOG Insulin] 25 unit SQ UD 10/21/15 [History] Insulin Detemir [Levemir] 60 unit SQ BID 10/21/15 [History] Losartan Potassium 25 mg PO DAILY 10/21/15 [History] Metformin HCl 1000 mg [Glucophage 1000 MG] 1,000 mg PO BID 10/21/15 [History] Simvastatin 80 mg PO DAILY 10/21/15 [History] Gabapentin [Neurontin] 400 mg PO QID 04/24/18 [History] Ropinirole HCl 1 mg PO HS 04/24/18 [History] PARoxetine HCl [Paxil] 40 mg PO DAILY 09/06/20 [History] Hx Tetanus, Diphtheria Vaccination/Date Given: Yes Hx Influenza Vaccination/Date Given: Yes Hx Pneumococcal Vaccination/Date Given: Yes Immunizations Up to Date: Yes Travel Risk - International Travel Have you traveled outside of the country in past 3 weeks: No - Coronavirus Screening Are you exhibiting any of the following symptoms?: No Close contact with a COVID-19 positive Pt in past 14-21 Days: No - Vaccine Status Have you recieved a Covid-19 vaccination: Yes Surveillance Technician: Moderna - Vaccination Dates Date of 2cond Vaccination (if applicable): 2020 - Review of Systems Constitutional: No Symptoms Eyes: No Symptoms Ears, Nose, & Throat: No Symptoms Respiratory: No Symptoms Cardiac: No Symptoms Abdominal/Gastrointestinal: No Symptoms Genitourinary Symptoms: No Symptoms Musculoskeletal: Injury Skin: Skin Lesions Neurological: Sensory Changes, No Headache Psychological: No Symptoms Endocrine: No Symptoms Hematologic/Lymphatic: No Symptoms Immunological/Allergic: No Symptoms - Past Medical History Pertinent Past Medical History: Yes Neurological History: Stroke ENT History: No Pertinent History Cardiac History: Arrhythmia, Hypertension Respiratory History: Other Endocrine Medical History: Diabetes Type II Musculoskeletal History: No Pertinent History, Other GI Medical History: GERD History: No Pertinent History Psycho-Social History: Depression, Anxiety Female Reproductive Disorders: No Pertinent History Other Medical History: DEPRESSION, states "i had a light stroke a few months ago" - Past Surgical History Past Surgical History: Yes Neuro Surgical History: No Pertinent History Cardiac: No Pertinent History Respiratory: No Pertinent History Gastrointestinal: Appendectomy Genitourinary: No Pertinent History Musculoskeletal: No Pertinent History Female Surgical History: Hysterectomy Other Surgical History: breast reduction, I and D perirectal abcess - Social History Smoking Status: Never smoker Exposure to second hand smoke: No Drug Use: none Patient Lives Alone: Yes - Nursing Vital Signs Nursing Vital Signs: Initial Vital Signs Temperature 99.3 F 09/27/21 14:38 Pulse Rate 100 H 09/27/21 14:38 Respiratory Rate 18 09/27/21 14:38 Blood Pressure 164/67 09/27/21 14:38 O2 Sat by Pulse Oximetry 98 09/27/21 14:38 Pain Scale Pain Intensity 10 - Physical Exam General Appearance: no apparent distress, alert Eye Exam: PERRL/EOMI Ears, Nose, Throat Exam: normal ENT inspection Neck Exam: normal inspection, supple, full range of motion Respiratory Exam: normal breath sounds, lungs clear Cardiovascular Exam: regular rate/rhythm, normal heart sounds Gastrointestinal/Abdomen Exam: soft, No tenderness Back Exam: normal inspection, normal range of motion Extremity Exam: inflammation, joint swelling, limited range of motion (Probable bone right second toe), swelling (Right second toe tip gangrene/black eschar. Dorsum of dorsal redness diffusely extending to dorsum of foot and also involving some erythema of the third toe. Peeling of skin and minimal discharge yellow-green from nailbed area. Warm and tender to touch.), tenderness Neurologic Exam: alert, oriented x 3, cooperative Skin Exam: normal color SpO2 Interpretation: normal SpO2: 98 O2 Delivery: Room Air Ordered Tests: Active Orders 24 hr Category Date Time Status Consent,Obtain ONCE Care 09/27/21 17:39 Active IV Insertion ROUTINE Care 09/27/21 17:39 Active Sequential Compression Device PRIOR TO OR Care 09/27/21 17:39 Active Ramone Hose, Apply ROUTINE Care 09/27/21 17:39 Active NPO Diet 09/27/21 23:00 Active FOOT (MINIMUM 3 VIEWS) Stat Exams 09/27/21 15:13 Completed BLOOD CULTURE Stat Lab 09/27/21 15:15 Received CBC W DIFF Stat Lab 09/27/21 15:01 Completed CMP Stat Lab 09/27/21 15:15 Completed Lactic Acid Stat Lab 09/27/21 15:20 Completed PROCALCITONIN Stat Lab 09/27/21 15:15 Completed Transfer Order Routine Transfer 09/27/21 Ordered Medication Summary Generic Name Dose Route Start Last Admin Trade Name Freq PRN Reason Stop Dose Admin Vancomycin HCl 1 gm/ Sodium 250 mls @ 125 mls/hr 09/27/21 16:00 09/27/21 16:57 Chloride IV 10/27/21 15:59 Not Given Q12H TUAN Ondansetron HCl 4 mg 09/27/21 17:41 Zofran 4 Mg/Udtablet Orally Disintegrating PO 10/27/21 17:40 Q4H PRN PRN NAUSEA/VOMITING Oxycodone/Acetaminophen 1 tab 09/27/21 17:42 09/27/21 18:08 Oxycodone Hcl/Apap 5 Mg/325 Mg Tablet PO 10/02/21 17:41 1 tab QIDP PRN Administration PAIN Discontinued Medications Generic Name Dose Route Start Last Admin Trade Name Viet PRN Reason Stop Dose Admin Acetaminophen 975 mg 09/27/21 17:33 09/27/21 17:36 Acetaminophen 325 Mg Tablet PO 09/27/21 17:34 975 mg STAT STA Administration Acetaminophen Confirm 09/27/21 17:35 Acetaminophen 325 Mg Tablet Administered 09/27/21 17:36 Dose 975 mg .ROUTE .STK-MED ONE Piperacillin Sod/Tazobactam 100 mls @ 200 mls/hr 09/27/21 15:59 09/27/21 16:10 Sod 3.375 gm/ Sodium Chloride IV 09/27/21 16:28 200 mls/hr STAT ONE Administration Vancomycin HCl 2 gm in 400 mls @ 133.333 mls/hr 09/27/21 16:00 09/27/21 17:00 Vancomycin 2 Gram/400 Ml Bag IV 09/27/21 18:59 133.33 ml/hr STAT ONE 133.33 mls/hr Administration Sodium Chloride Confirm 09/27/21 16:06 Sodium Chloride 100ml Mini-Bag Plus Administered 09/27/21 16:07 Dose 100 mls @ ud IV .STK-MED ONE Vancomycin HCl Confirm 09/27/21 16:52 Vancomycin 2 Gram/400 Ml Bag Administered 09/27/21 16:53 Dose 2 gm in 400 mls @ ud IV .STK-MED ONE Insulin Human Regular 10 unit 09/27/21 17:41 09/27/21 18:05 Insulin Regular, Human 1 Unit IV 09/27/21 17:42 10 unit STAT ONE Administration Insulin Human Regular Confirm 09/27/21 18:03 Insulin Regular, Human 1 Unit Administered 09/27/21 18:04 Dose 10 unit .ROUTE .STK-MED ONE Morphine Sulfate 4 mg 09/27/21 15:35 09/27/21 15:44 Morphine Sulfate 4 Mg/Ml Injection IV 09/27/21 15:36 4 mg STAT ONE Administration Morphine Sulfate Confirm 09/27/21 15:40 Morphine Sulfate 4 Mg/Ml Injection Administered 09/27/21 15:41 Dose 4 mg .ROUTE .STK-MED ONE Ondansetron HCl 4 mg 09/27/21 15:35 09/27/21 15:42 Ondansetron Hcl 4 Mg/2 Ml Vial IV 09/27/21 15:36 4 mg STAT ONE Administration Ondansetron HCl Confirm 09/27/21 15:40 Ondansetron Hcl 4 Mg/2 Ml Vial Administered 09/27/21 15:41 Dose 4 mg .ROUTE .STK-MED ONE Piperacillin Sod/Tazobactam Sod Confirm 09/27/21 16:06 Piperacillin/Tazobactam Sodium 3.375 Gm Vial Administered 09/27/21 16:07 Dose 3.375 gm IV .STK-MED ONE Lab/Rad Data: Laboratory Result Diagrams 09/27/21 15:01 09/27/21 15:15 Laboratory Results 09/27/21 09/27/21 09/27/21 Range/Units Unknown 15:20 15:15 WBC (4.0-10.5) x10^3/uL RBC (4.1-5.4) x10^6/uL Hgb (12.0-16.0) g/dL Hct (35-47) % MCV (78-100) fL MCH (26-32) pg MCHC (32-36) g/dL RDW (11.5-14.0) % Plt Count (150-450) x10^3/uL MPV (7.5-11.0) fL Gran % (36.0-66.0) % Immature Gran % (Auto) (0.00-0.4) % Nucleat RBC Rel Count (0.00-0.1) % Eos # (Auto) (0-0.5) x10^3/uL Immature Gran # (Auto) (0.00-0.03) x10^3u/L Absolute Lymphs (auto) (1.0-4.6) x10^3/uL Absolute Monos (auto) (0.0-1.3) x10^3/uL Absolute Nucleated RBC (0.00-0.01) x10^3u/L Lymphocytes % (24.0-44.0) % Monocytes % (0.0-12.0) % Eosinophils % (0.00-5.0) % Basophils % (0.0-0.4) % Absolute Granulocytes (1.4-6.9) x10^3/uL Basophils # (0-0.4) x10^3/uL Sodium (137-145) mmol/L Potassium (3.5-5.1) mmol/L Chloride (98-107) mmol/L Carbon Dioxide (22-30) mmol/L Anion Gap (5-15) MEQ/L BUN (7-17) mg/dL Creatinine (0.52-1.04) mg/dL Estimated GFR ML/MIN Glucose (74-106) mg/dL Lactic Acid 1.4 (0.4-2.0) Calcium (8.4-10.2) mg/dL Total Bilirubin (0.2-1.3) mg/dL AST (14-36) U/L ALT (0-35) U/L Alkaline Phosphatase (38-126) U/L Serum Total Protein (6.3-8.2) g/dL Albumin (3.5-5.0) g/dL Procalcitonin 0.200 H (0.030-0.080) ng/mL Influenza Type A Ag NEGATIVE (NEGATIVE) Influenza Type B Ag NEGATIVE (NEGATIVE) RSV (PCR) NEGATIVE (Negative) SARS-CoV-2 (PCR) NEGATIVE (NEGATIVE) 09/27/21 09/27/21 Range/Units 15:15 15:01 WBC 11.3 H (4.0-10.5) x10^3/uL RBC 3.88 L (4.1-5.4) x10^6/uL Hgb 10.1 L (12.0-16.0) g/dL Hct 32.1 L (35-47) % MCV 82.7 (78-100) fL MCH 26.0 (26-32) pg MCHC 31.5 L (32-36) g/dL RDW 14.3 H (11.5-14.0) % Plt Count 329 (150-450) x10^3/uL MPV 10.4 (7.5-11.0) fL Gran % 66.9 H (36.0-66.0) % Immature Gran % (Auto) 0.6 H (0.00-0.4) % Nucleat RBC Rel Count 0.0 (0.00-0.1) % Eos # (Auto) 0.13 (0-0.5) x10^3/uL Immature Gran # (Auto) 0.07 H (0.00-0.03) x10^3u/L Absolute Lymphs (auto) 2.46 (1.0-4.6) x10^3/uL Absolute Monos (auto) 1.00 (0.0-1.3) x10^3/uL Absolute Nucleated RBC 0.00 (0.00-0.01) x10^3u/L Lymphocytes % 21.8 L (24.0-44.0) % Monocytes % 8.9 (0.0-12.0) % Eosinophils % 1.2 (0.00-5.0) % Basophils % 0.6 (0.0-0.4) % Absolute Granulocytes 7.56 H (1.4-6.9) x10^3/uL Basophils # 0.07 (0-0.4) x10^3/uL Sodium 130 L (137-145) mmol/L Potassium 4.8 (3.5-5.1) mmol/L Chloride 95 L (98-107) mmol/L Carbon Dioxide 25 (22-30) mmol/L Anion Gap 15.1 H (5-15) MEQ/L BUN 13 (7-17) mg/dL Creatinine 0.64 (0.52-1.04) mg/dL Estimated GFR > 60.0 ML/MIN Glucose 431 H (74-106) mg/dL Lactic Acid (0.4-2.0) Calcium 8.7 (8.4-10.2) mg/dL Total Bilirubin 0.40 (0.2-1.3) mg/dL AST 15 (14-36) U/L ALT 10 (0-35) U/L Alkaline Phosphatase 105 (38-126) U/L Serum Total Protein 6.8 (6.3-8.2) g/dL Albumin 3.4 L (3.5-5.0) g/dL Procalcitonin (0.030-0.080) ng/mL Influenza Type A Ag (NEGATIVE) Influenza Type B Ag (NEGATIVE) RSV (PCR) (Negative) SARS-CoV-2 (PCR) (NEGATIVE) - Progress Progress: pain not gone completely Progress Note: 09/27/21 16:34 She is given symptomatic treatment for pain, baseline work-up obtained including cultures and x-rays reviewed by me did not reveal any obvious fracture/osteo-. Discussed with Dr. Deleon, started on antibiotics and he is going to evaluate patient in the ER. 09/27/21 17:56 Dr. Deleon has seen patient and discussed plan of stage amputation and recommended admission with continued IV antibiotics. Discussed with Dr. Ochoa and patient is admitted to primary care service in consultation with podiatry. Counseled pt/family regarding: lab results, diagnosis, need for follow-up, rad results - Departure Departure Disposition: Observation Clinical Impression: Osteomyelitis due to type 2 diabetes mellitus, Foot ulcer due to secondary DM, Hyperglycemia Abscess of skin and subcutaneous tissue Qualifiers: Site of cutaneous abscess: trunk Site of cutaneous abscess of trunk: abdominal wall Qualified Code(s): L02.211 - Cutaneous abscess of abdominal wall Condition: Stable Critical Care Time: No Referrals: JANE FUCHS [Primary Care Provider] - Follow up/PCP as directed
[2021-09-27] MEDS: VANCOCIN 1 GM VIAL*** 1 GM in Sodium Chloride 0.9% 250 ML 250 ML IV SCH (16:57)
--- NOTE | 2021-09-27 17:32 | PCM.CONS ---
Podiatry HPI - Consult Date of Consultation Date: 09/27/21 Reason for Consult: Diabetic foot ulcer Consulting Provider: ODALYS LEBRON DPM - [facility] History of Present Illness: May is a very pleasant 56-year-old female who presents to the emergency room for concerns of nausea, fever and lethargy secondary to a diabetic foot wound to the right foot at the second toe. She indicates that she did not want to miss work when she noticed that the wound started so she started to provide self- care. This was approximately 2 weeks ago that the darkening of the tip of the toe began. Patient presents today with red streaking on the dorsal aspect of the foot leading to the midfoot and is experiencing constitutional symptoms of infection. She currently denies any other pedal complaints at this time Medications & Allergies Home Medications: Home Medication List ARIPiprazole [Abilify] 10 mg PO DAILY 10/21/15 [History Confirmed 10/23/20] Gemfibrozil [Lopid] 600 mg PO BID 10/21/15 [History Confirmed 10/23/20] Hydrochlorothiazide 25 mg [hydroDIURIL 25 MG] 25 mg PO DAILY 10/21/15 [History Confirmed 10/23/20] Insulin Aspart [NovoLOG Insulin] 25 unit SQ UD 10/21/15 [History Confirmed 10/23/20] Insulin Detemir [Levemir] 60 unit SQ BID 10/21/15 [History Confirmed 10/23/20] Losartan Potassium 25 mg PO DAILY 10/21/15 [History Confirmed 10/23/20] Metformin HCl 1000 mg [Glucophage 1000 MG] 1,000 mg PO BID 10/21/15 [History Confirmed 10/23/20] Simvastatin 80 mg PO DAILY 10/21/15 [History Confirmed 10/23/20] Gabapentin [Neurontin] 400 mg PO QID 04/24/18 [History Confirmed 10/23/20] Ropinirole HCl 1 mg PO HS 04/24/18 [History Confirmed 10/23/20] PARoxetine HCl [Paxil] 40 mg PO DAILY 09/06/20 [History Confirmed 10/23/20] Allergies/Adverse Reactions: Allergies Allergy/AdvReac Type Severity Reaction Status Date / Time lisinopril Allergy Verified 09/27/21 14:37 - Past Medical History Past Medical History: Yes Neurological History: Stroke ENT History: No Pertinent History Cardiac History: Arrhythmia, Hypertension Respiratory History: Other Endocrine Medical History: Diabetes Type II Musculoskelatal History: No Pertinent History, Other GI Medical History: GERD History: No Pertinent History Pyscho-Social History: Depression, Anxiety Reproductive Disorders: No Pertinent History Comment: DEPRESSION, states "i had a light stroke a few months ago" - Past Surgical History Past Surgical History: Yes Neuro Surgical History: No Pertinent History Cardiac History: No Pertinent History Respiratory Surgery: No Pertinent History GI Surgical History: Appendectomy Genitourinary Surgical Hx: No Pertinent History Musculskeletal Surgical Hx: No Pertinent History Female Surgical History: Hysterectomy Other Surgical History: breast reduction, I and D perirectal abcess - Social History Smoking Status: Never smoker Exposure to second hand smoke: No Alcohol: None Drug Use: none Physical Exam - General General Appearance: moderate distress, lethargy - Neuro Neurologic: Epicritic and protopathic (absent) - Vascular Peripheral Pulses: Posterior tibialis: 2+, Dorsalis-Pedis: 2+ Capillary Refill Time: < 3 seconds Varicosities: Negtive Edema: None Skin: Supple, not atrophic Skin Temperature: Hot to touch - Narrative Narrative Physical Exam: Podiatry Physical Exam Dermatological exam: Right foot centeredmild crepitation with palpation to the distal tip of the toe. There is a small ulceration at the distal tip which probes directly to bone with purulent drainage 5 mm rim of necrotic tissue at the wound base. Wound probes beside the bone to the base of the proximal phalanx with tracking. Erythematous with signs of exfoliative skin surrounding the second digit. Cellulitis extending over the dorsal aspect of the second digit and crossing over to the midfoot of the third. Results - Labs Lab/Micro Results: Lab Results-Last 24 Hours 09/27/21 09/27/21 09/27/21 Range/Units 15:01 15:15 15:15 WBC 11.3 H (4.0-10.5) x10^3/uL RBC 3.88 L (4.1-5.4) x10^6/uL Hgb 10.1 L (12.0-16.0) g/dL Hct 32.1 L (35-47) % MCV 82.7 (78-100) fL MCH 26.0 (26-32) pg MCHC 31.5 L (32-36) g/dL RDW 14.3 H (11.5-14.0) % Plt Count 329 (150-450) x10^3/uL MPV 10.4 (7.5-11.0) fL Gran % 66.9 H (36.0-66.0) % Immature Gran % (Auto) 0.6 H (0.00-0.4) % Nucleat RBC Rel Count 0.0 (0.00-0.1) % Eos # (Auto) 0.13 (0-0.5) x10^3/uL Immature Gran # (Auto) 0.07 H (0.00-0.03) x10^3u/L Absolute Lymphs (auto) 2.46 (1.0-4.6) x10^3/uL Absolute Monos (auto) 1.00 (0.0-1.3) x10^3/uL Absolute Nucleated RBC 0.00 (0.00-0.01) x10^3u/L Lymphocytes % 21.8 L (24.0-44.0) % Monocytes % 8.9 (0.0-12.0) % Eosinophils % 1.2 (0.00-5.0) % Basophils % 0.6 (0.0-0.4) % Absolute Granulocytes 7.56 H (1.4-6.9) x10^3/uL Basophils # 0.07 (0-0.4) x10^3/uL Sodium 130 L (137-145) mmol/L Potassium 4.8 (3.5-5.1) mmol/L Chloride 95 L (98-107) mmol/L Carbon Dioxide 25 (22-30) mmol/L Anion Gap 15.1 H (5-15) MEQ/L BUN 13 (7-17) mg/dL Creatinine 0.64 (0.52-1.04) mg/dL Estimated GFR > 60.0 ML/MIN Glucose 431 H (74-106) mg/dL Lactic Acid (0.4-2.0) Calcium 8.7 (8.4-10.2) mg/dL Total Bilirubin 0.40 (0.2-1.3) mg/dL AST 15 (14-36) U/L ALT 10 (0-35) U/L Alkaline Phosphatase 105 (38-126) U/L Serum Total Protein 6.8 (6.3-8.2) g/dL Albumin 3.4 L (3.5-5.0) g/dL Procalcitonin 0.200 H (0.030-0.080) ng/mL 09/27/21 Range/Units 15:20 WBC (4.0-10.5) x10^3/uL RBC (4.1-5.4) x10^6/uL Hgb (12.0-16.0) g/dL Hct (35-47) % MCV (78-100) fL MCH (26-32) pg MCHC (32-36) g/dL RDW (11.5-14.0) % Plt Count (150-450) x10^3/uL MPV (7.5-11.0) fL Gran % (36.0-66.0) % Immature Gran % (Auto) (0.00-0.4) % Nucleat RBC Rel Count (0.00-0.1) % Eos # (Auto) (0-0.5) x10^3/uL Immature Gran # (Auto) (0.00-0.03) x10^3u/L Absolute Lymphs (auto) (1.0-4.6) x10^3/uL Absolute Monos (auto) (0.0-1.3) x10^3/uL Absolute Nucleated RBC (0.00-0.01) x10^3u/L Lymphocytes % (24.0-44.0) % Monocytes % (0.0-12.0) % Eosinophils % (0.00-5.0) % Basophils % (0.0-0.4) % Absolute Granulocytes (1.4-6.9) x10^3/uL Basophils # (0-0.4) x10^3/uL Sodium (137-145) mmol/L Potassium (3.5-5.1) mmol/L Chloride (98-107) mmol/L Carbon Dioxide (22-30) mmol/L Anion Gap (5-15) MEQ/L BUN (7-17) mg/dL Creatinine (0.52-1.04) mg/dL Estimated GFR ML/MIN Glucose (74-106) mg/dL Lactic Acid 1.4 (0.4-2.0) Calcium (8.4-10.2) mg/dL Total Bilirubin (0.2-1.3) mg/dL AST (14-36) U/L ALT (0-35) U/L Alkaline Phosphatase (38-126) U/L Serum Total Protein (6.3-8.2) g/dL Albumin (3.5-5.0) g/dL Procalcitonin (0.030-0.080) ng/mL - Radiology Impressions Radiology Exams & Impressions: Radiology Procedures Category Date Time Status FOOT (MINIMUM 3 VIEWS) Stat Exams 09/27/21 15:13 Taken Assessment/Plan (1) Peripheral sensory neuropathy due to type 2 diabetes mellitus Current Visit: Yes Status: Acute Code(s): E11.42 - TYPE 2 DIABETES MELLITUS WITH DIABETIC POLYNEUROPATHY (2) Foot ulcer due to secondary DM Current Visit: Yes Status: Acute Assessment & Plan: Initial patient examination evaluation. Radiographs reviewed demonstrating significant contracture of the second digit on nonweightbearing view with significant soft tissue swelling however no evidence of obvious cortical lysis or gas within the soft tissue at this time. Clinically patient's wound does probe to bone and does track up the second digit with a significant amount of soft tissue loss at the distal tip. Options were discussed with the patient in regards to proceeding forward with surgical intervention. Discussion with patient demonstrates that she is reluctant at this time however willing to proceed if it takes care of the problem at hand. Plan will be for open amputation second digit of the right foot with incision drainage bone debridement of the right foot. N.p.o. at 2300 tonight Culture obtained at bedside in emergency department Continue Zosyn 3.375 g every 8 hours, vancomycin pharmacy to dose Betadine to the wound and a Band-Aid for now To the OR tomorrow morning PT OT consult Discharge planning consult We will follow closely Code(s): E13.621 - OTHER SPECIFIED DIABETES MELLITUS WITH FOOT ULCER; L97.509 - NON-PRESSURE CHRONIC ULCER OTH PRT UNSP FOOT W UNSP SEVERITY (3) Osteomyelitis due to type 2 diabetes mellitus Current Visit: Yes Status: Acute Code(s): E11.69 - TYPE 2 DIABETES MELLITUS WITH OTHER SPECIFIED COMPLICATION; M86.9 - OSTEOMYELITIS, UNSPECIFIED (4) Abscess of skin and subcutaneous tissue Current Visit: No Status: Acute Qualifiers: Site of cutaneous abscess: trunk Site of cutaneous abscess of trunk: abdominal wall Qualified Code(s): L02.211 - Cutaneous abscess of abdominal wall Code(s): L02.91 - CUTANEOUS ABSCESS, UNSPECIFIED (5) Diabetes mellitus out of control Current Visit: No Status: Acute Qualifiers: Diabetes mellitus type: type 2 Glycemic state: with hyperglycemia Qualified Code(s): E11.65 - Type 2 diabetes mellitus with hyperglycemia Code(s): E11.65 - TYPE 2 DIABETES MELLITUS WITH HYPERGLYCEMIA (6) Hyperglycemia Current Visit: No Status: Acute Code(s): R73.9 - HYPERGLYCEMIA, UNSPECIFIED
[2021-09-27] MEDS ORDERED: TYLENOL 325 MG PO STA (17:33)
[2021-09-27] MEDS ORDERED: TYLENOL 325 MG ONE (17:35)
[2021-09-27] MEDS ORDERED: HUMULIN R IV ONE (17:41)
[2021-09-27] MEDS ORDERED: ZOFRAN ODT 4 MG PO PRN (17:41)
[2021-09-27] MEDS ORDERED: HUMULIN R ONE (18:03)
[2021-09-27] MEDS: PERCOCET TABLET 5/325MG PO PRN (18:08)
[2021-09-27 18:53] LABS: INFLUENZA A NEGATIVE (NEGATIVE); INFLUENZA B NEGATIVE (NEGATIVE); RESPIRATORY SYNCTIAL VIRUS NEGATIVE (Negative); SARS-CoV-2 Xpert Express NEGATIVE (NEGATIVE)
--- NOTE | 2021-09-27 18:56 | XRAY ---
Indication: Nonhealing 2nd toe blister. Diabetes. Comparison: None 3 nonweightbearing views right foot demonstrates mild diffuse soft tissue swelling/edema and extensive scattered vascular calcifications. No other bony, articular, or soft tissue abnormalities.
[2021-09-27] MEDS ORDERED: TYLENOL 325 MG PO PRN (19:58)
[2021-09-27] MEDS ORDERED: VANCOCIN 1 GM VIAL*** 1 GM in Sodium Chloride 0.9% 250 ML 250 ML IV SCH (19:58)
[2021-09-27] MEDS ORDERED: DUONEB 0.5-3 MG/3 ml Neb IH PRN (19:58)
[2021-09-27] MEDS ORDERED: Zofran 4 MG/2 ML VIAL IV PRN (19:58)
[2021-09-27] MEDS ORDERED: Sodium Chloride 0.9% 100 ML ONE (21:57)
[2021-09-27] MEDS: HUMALOG SQ PRN (22:03)
[2021-09-27] MEDS: Neurontin PO SCH (22:05)
[2021-09-27] MEDS: DESYREL 50 MG PO SCH (22:05)
[2021-09-28] MEDS: PERCOCET TABLET 5/325MG PO PRN (00:15)
[2021-09-28] MEDS: PIPERACILLIN/TAZOBACTAM 3.375 GM in Sodium Chloride 100ML MINI-BAG PLUS 100 ML IV SCH ×7 (00:16→23:45)
[2021-09-28] MEDS ORDERED: PIPERACILLIN/TAZOBACTAM IV ONE (01:08)
[2021-09-28] MEDS ORDERED: VANCOMYCIN 1 GRAM/200 ML BAG 1 GM/200 ML PIGGYBACK IV ONE (01:09)
[2021-09-28] MEDS ORDERED: Sodium Chloride 100ML MINI-BAG PLUS 100 ML IV ONE (01:10)
[2021-09-28] MEDS: VANCOCIN 1 GM VIAL*** 1 GM in Sodium Chloride 0.9% 250 ML 250 ML IV SCH (03:45)
[2021-09-28 05:00] LABS: Absolute Neutrophil Ct (ANC) 4.68 x10^3/uL (1.4-6.9); Basophil (Absolute #) 0.06 x10^3/uL (0-0.4); Eosinophil % 3.6 % (0.00-5.0); Eosinophil (Absolute #) 0.34 x10^3/uL (0-0.5); Hematocrit 30.2 % (35-47); Hemoglobin 9.5 g/dL (12.0-16.0); Lymphocyte (Absolute #) 3.25 x10^3/uL (1.0-4.6); Lymphocytes % 34.7 % (24.0-44.0); Mean Cell Volume 81.8 fL (78-100); Mean Corpuscular Hemoglobin 25.7 pg (26-32); Mean Corpuscular Hgb Concent. 31.5 g/dL (32-36); Mean Platelet Volume 10.2 fL (7.5-11.0); Monocytes % 10.7 % (0.0-12.0); Neutrophil % 50.1 % (36.0-66.0); Platelet Count 323 x10^3/uL (150-450); Red Blood Count 3.69 x10^6/uL (4.1-5.4); Red Cell Distribution Width 14.6 % (11.5-14.0); White Blood Count 9.4 x10^3/uL (4.0-10.5)
[2021-09-28 05:47] LABS: ALBUMIN 3.3 g/dL (3.5-5.0); ALKALINE PHOSPHATASE 102 U/L (38-126); ANION GAP 14.2 MEQ/L (5-15); BLOOD UREA NITROGEN 17 mg/dL (7-17); CHLORIDE 98 mmol/L (98-107); Calcium 8.3 mg/dL (8.4-10.2); Carbon Dioxide 21 mmol/L (22-30); Creatinine 1 0.72 mg/dL (0.52-1.04); EST GLOMERULAR FILTRATION RATE > 60.0 ML/MIN; Glucose 355 mg/dL (74-106); Potassium 3.6 mmol/L (3.5-5.1); SGOT/AST 18 U/L (14-36); SGPT/ALT 11 U/L (0-35); SODIUM 130 mmol/L (137-145); Total Protein 6.8 g/dL (6.3-8.2)
[2021-09-28] MEDS ORDERED: Lactated Ringers 1,000 ML IV ONE (06:19)
[2021-09-28] MEDS ORDERED: Pepcid 20 MG VIAL IV ONE (06:20)
[2021-09-28] MEDS ORDERED: XYLOCAINE 1% HCL 20 ML MDV ONE (06:32)
[2021-09-28] MEDS ORDERED: SUBLIMAZE 100 MCG/2 ML ONE (06:50)
[2021-09-28] MEDS ORDERED: Xylocaine-Mpf 2% 5 Ml Vial ONE (06:50)
[2021-09-28] MEDS ORDERED: DIPRIVAN 200 MG/20 ML IV ONE (06:50)
[2021-09-28] MEDS ORDERED: Versed 2 MG/2 ML Injection ONE (07:16)
--- NOTE | 2021-09-28 09:18 | PCM.NOTE ---
Date and Time: 09/28/21914 Subjective Assessment: patient reports her pain is well controlled, had surgery on right foot with planned delayed closure. she has no complaints Objective Exam General Appearance: no apparent distress Neurologic Exam: alert, oriented x 3 Wound Assessment: Skin/Wound Assessment Wound/Incision Assessment Start: 09/27/21 20:00 Text: Status: Active Freq: Q4H Protocol: Document 09/28/21 04:00 RB (Rec: 09/28/21 06:15 RB [id number]) Wound/Incision Assessment RIGHT FOOT SECOND TOE Wound Type Pressure Ulcer Dressing Status Dry & Intact Drainage Amount Moderate Drainage Description Purulent Drainage Odor Mild Odor General Appearance Open to air,Reddened,Blackened ,Draining,Necrotic Respiratory Exam: normal breath sounds, lungs clear, No respiratory distress Cardiovascular Exam: regular rate/rhythm, normal heart sounds Gastrointestinal/Abdomen Exam: soft, No tenderness, No mass Extremity Exam: other (dressing intact to right foot) OBJECTIVE DATA Vital Signs: Vital Signs - 24 hr Temp Pulse Resp BP BP Pulse Ox 09/28/21 09:04 98.0 F 87 16 119/66 94 L 09/28/21 08:00 98.2 F 86 16 117/57 94 L 09/28/21 04:00 97.7 F 95 H 18 121/66 133/62 91 L 09/28/21 00:00 20 09/27/21 23:46 97.7 F 99 H 17 133/69 91 L 09/27/21 20:37 80 18 93 L 09/27/21 20:11 97.8 F 86 16 122/59 98 09/27/21 19:09 98 09/27/21 16:25 82 18 121/66 98 09/27/21 15:17 94 H 18 130/60 96 09/27/21 14:38 99.3 F 100 H 18 164/67 98 Pain Assessment - Last Documented Pain Intensity 0 Pain Scale Used FLACC Intake and Output: Intake & Output 09/25/21 09/26/21 09/27/21 09/28/21 11:59 11:59 11:59 11:59 Intake Total 328 Output Total 500 Balance -172 Weight 79.4 kg Lab Results: Lab Results-Last 24 Hours 09/27/21 09/27/21 09/27/21 Range/Units 15:01 15:15 15:15 WBC 11.3 H (4.0-10.5) x10^3/uL RBC 3.88 L (4.1-5.4) x10^6/uL Hgb 10.1 L (12.0-16.0) g/dL Hct 32.1 L (35-47) % MCV 82.7 (78-100) fL MCH 26.0 (26-32) pg MCHC 31.5 L (32-36) g/dL RDW 14.3 H (11.5-14.0) % Plt Count 329 (150-450) x10^3/uL MPV 10.4 (7.5-11.0) fL Gran % 66.9 H (36.0-66.0) % Immature Gran % (Auto) 0.6 H (0.00-0.4) % Nucleat RBC Rel Count 0.0 (0.00-0.1) % Eos # (Auto) 0.13 (0-0.5) x10^3/uL Immature Gran # (Auto) 0.07 H (0.00-0.03) x10^3u/L Absolute Lymphs (auto) 2.46 (1.0-4.6) x10^3/uL Absolute Monos (auto) 1.00 (0.0-1.3) x10^3/uL Absolute Nucleated RBC 0.00 (0.00-0.01) x10^3u/L Lymphocytes % 21.8 L (24.0-44.0) % Monocytes % 8.9 (0.0-12.0) % Eosinophils % 1.2 (0.00-5.0) % Basophils % 0.6 (0.0-0.4) % Absolute Granulocytes 7.56 H (1.4-6.9) x10^3/uL Basophils # 0.07 (0-0.4) x10^3/uL Sodium 130 L (137-145) mmol/L Potassium 4.8 (3.5-5.1) mmol/L Chloride 95 L (98-107) mmol/L Carbon Dioxide 25 (22-30) mmol/L Anion Gap 15.1 H (5-15) MEQ/L BUN 13 (7-17) mg/dL Creatinine 0.64 (0.52-1.04) mg/dL Estimated GFR > 60.0 ML/MIN Glucose 431 H (74-106) mg/dL POC Glucometer (74 to 106) mg/dL Lactic Acid (0.4-2.0) Calcium 8.7 (8.4-10.2) mg/dL Total Bilirubin 0.40 (0.2-1.3) mg/dL AST 15 (14-36) U/L ALT 10 (0-35) U/L Alkaline Phosphatase 105 (38-126) U/L Serum Total Protein 6.8 (6.3-8.2) g/dL Albumin 3.4 L (3.5-5.0) g/dL Procalcitonin 0.200 H (0.030-0.080) ng/mL Influenza Type A Ag (NEGATIVE) Influenza Type B Ag (NEGATIVE) RSV (PCR) (Negative) SARS-CoV-2 (PCR) (NEGATIVE) 09/27/21 09/27/21 09/27/21 Range/Units 15:20 20:55 Unknown WBC (4.0-10.5) x10^3/uL RBC (4.1-5.4) x10^6/uL Hgb (12.0-16.0) g/dL Hct (35-47) % MCV (78-100) fL MCH (26-32) pg MCHC (32-36) g/dL RDW (11.5-14.0) % Plt Count (150-450) x10^3/uL MPV (7.5-11.0) fL Gran % (36.0-66.0) % Immature Gran % (Auto) (0.00-0.4) % Nucleat RBC Rel Count (0.00-0.1) % Eos # (Auto) (0-0.5) x10^3/uL Immature Gran # (Auto) (0.00-0.03) x10^3u/L Absolute Lymphs (auto) (1.0-4.6) x10^3/uL Absolute Monos (auto) (0.0-1.3) x10^3/uL Absolute Nucleated RBC (0.00-0.01) x10^3u/L Lymphocytes % (24.0-44.0) % Monocytes % (0.0-12.0) % Eosinophils % (0.00-5.0) % Basophils % (0.0-0.4) % Absolute Granulocytes (1.4-6.9) x10^3/uL Basophils # (0-0.4) x10^3/uL Sodium (137-145) mmol/L Potassium (3.5-5.1) mmol/L Chloride (98-107) mmol/L Carbon Dioxide (22-30) mmol/L Anion Gap (5-15) MEQ/L BUN (7-17) mg/dL Creatinine (0.52-1.04) mg/dL Estimated GFR ML/MIN Glucose (74-106) mg/dL POC Glucometer 289 H (74 to 106) mg/dL Lactic Acid 1.4 (0.4-2.0) Calcium (8.4-10.2) mg/dL Total Bilirubin (0.2-1.3) mg/dL AST (14-36) U/L ALT (0-35) U/L Alkaline Phosphatase (38-126) U/L Serum Total Protein (6.3-8.2) g/dL Albumin (3.5-5.0) g/dL Procalcitonin (0.030-0.080) ng/mL Influenza Type A Ag NEGATIVE (NEGATIVE) Influenza Type B Ag NEGATIVE (NEGATIVE) RSV (PCR) NEGATIVE (Negative) SARS-CoV-2 (PCR) NEGATIVE (NEGATIVE) 09/28/21 09/28/21 Range/Units 05:02 05:02 WBC 9.4 (4.0-10.5) x10^3/uL RBC 3.69 L (4.1-5.4) x10^6/uL Hgb 9.5 L (12.0-16.0) g/dL Hct 30.2 L (35-47) % MCV 81.8 (78-100) fL MCH 25.7 L (26-32) pg MCHC 31.5 L (32-36) g/dL RDW 14.6 H (11.5-14.0) % Plt Count 323 (150-450) x10^3/uL MPV 10.2 (7.5-11.0) fL Gran % 50.1 (36.0-66.0) % Immature Gran % (Auto) 0.3 (0.00-0.4) % Nucleat RBC Rel Count 0.0 (0.00-0.1) % Eos # (Auto) 0.34 (0-0.5) x10^3/uL Immature Gran # (Auto) 0.03 (0.00-0.03) x10^3u/L Absolute Lymphs (auto) 3.25 (1.0-4.6) x10^3/uL Absolute Monos (auto) 1.00 (0.0-1.3) x10^3/uL Absolute Nucleated RBC 0.00 (0.00-0.01) x10^3u/L Lymphocytes % 34.7 (24.0-44.0) % Monocytes % 10.7 (0.0-12.0) % Eosinophils % 3.6 (0.00-5.0) % Basophils % 0.6 (0.0-0.4) % Absolute Granulocytes 4.68 (1.4-6.9) x10^3/uL Basophils # 0.06 (0-0.4) x10^3/uL Sodium 130 L (137-145) mmol/L Potassium 3.6 D (3.5-5.1) mmol/L Chloride 98 (98-107) mmol/L Carbon Dioxide 21 L (22-30) mmol/L Anion Gap 14.2 (5-15) MEQ/L BUN 17 (7-17) mg/dL Creatinine 0.72 (0.52-1.04) mg/dL Estimated GFR > 60.0 ML/MIN Glucose 355 H (74-106) mg/dL POC Glucometer (74 to 106) mg/dL Lactic Acid (0.4-2.0) Calcium 8.3 L (8.4-10.2) mg/dL Total Bilirubin 0.40 (0.2-1.3) mg/dL AST 18 (14-36) U/L ALT 11 (0-35) U/L Alkaline Phosphatase 102 (38-126) U/L Serum Total Protein 6.8 (6.3-8.2) g/dL Albumin 3.3 L (3.5-5.0) g/dL Procalcitonin (0.030-0.080) ng/mL Influenza Type A Ag (NEGATIVE) Influenza Type B Ag (NEGATIVE) RSV (PCR) (Negative) SARS-CoV-2 (PCR) (NEGATIVE) Radiology Exams: Radiology Procedures Category Date Time Status FOOT (MINIMUM 3 VIEWS) Stat Exams 09/27/21 15:13 Completed Multi-Disciplinary Progress Notes: Multi-Disciplinary Progress Notes 09/28/21 07:58 Pharmacy Note by Dorian Retana Pharmacokinetic dosing service Date: 09/28/21 Time: 0800 Objective: Patient: ELIER INFANTE Floor: 119 Age: 56 yo Serum creatinine: 0.72 mg/dL Height: 60 Inches Weight (kg): 79 Diagnosis: OSTEOMYELITIS Relevant medical/social history: DIABETES Cultures and sensitivities: UNAVAILABLE Other labs: SR CR = 0.72 Assessment: IBW (kg): 45.50 Dosing wt(kg): 79 Estimated Creatinine clearance (ml/min): 61.2 CRCL method: Cockcroft and Gault using ibw(default). Drug selected: Vancomycin Loading dose (mg): 2000 MG IN ED Vd (liters): 55.3 (factor used: 0.7 L/kg) Nestor (hr-1): 0.055 Half life (hrs): 12.60 Recommended dose: 1250 mg Interval: 18 hrs Infusion time (hrs): 1.5 Predicted peak (mcg/mL): 34.5 Predicted trough (mcg/mL): 13.92 Total body weight is being used for vancomycin dosing. Renal function is stable [ xxx ] /unstable [ ] Recommendations: Give Vancomycin 1250 mg q 18 hrs with an expected Cpeak of 34.5 mcg/ml and an expected Ctrough of 13.92 mcg/ml Renal dosing of other antibiotics (review renal dosing of other medications and list guidelines here): JUAN MIGUEL Thank you for the consult, will continue to follow. Signature: LONDON OBREGON 09/29 Initialized on 09/28/21 07:58 - END OF NOTE Assessment/Plan (1) Abscess of skin and subcutaneous tissue Current Visit: Yes Status: Acute Qualifiers: Site of cutaneous abscess: trunk Site of cutaneous abscess of trunk: abdominal wall Qualified Code(s): L02.211 - Cutaneous abscess of abdominal wall Assessment & Plan: on vanc/zosyn, cultures pending. Code(s): L02.91 - CUTANEOUS ABSCESS, UNSPECIFIED (2) Foot ulcer due to secondary DM Current Visit: Yes Status: Acute Code(s): E13.621 - OTHER SPECIFIED DIABETES MELLITUS WITH FOOT ULCER; L97.509 - NON-PRESSURE CHRONIC ULCER OTH PRT UNSP FOOT W UNSP SEVERITY (3) IDDM (insulin dependent diabetes mellitus) Current Visit: No Status: Acute Assessment & Plan: start 1999 manuel ada diet today, add lantus 20 units to sliding scale coverage after review of POCT glucose levels Code(s): E11.9 - TYPE 2 DIABETES MELLITUS WITHOUT COMPLICATIONS; Z79.4 - [employer] (CURRENT) USE OF INSULIN
[2021-09-28] MEDS ORDERED: ROPINIROLE HCL 0.25 MG PO SCH (10:00)
[2021-09-28] MEDS ORDERED: NON-FORMULARY ITEM (Losartan Potassium [Losartan Potassium] 25 MG Tablet) PO SCH (10:00)
[2021-09-28] MEDS ORDERED: NON-FORMULARY ITEM (Metformin Hcl 1000 Mg [Glucophage 1000 Mg] 1,000 MG Tablet) PO SCH (10:00)
[2021-09-28] MEDS ORDERED: ENOXAPARIN SODIUM SQ SCH (10:00)
[2021-09-28] MEDS ORDERED: NON-FORMULARY ITEM (Aripiprazole [Abilify] 5 MG Tablet) PO SCH (10:00)
[2021-09-28] MEDS: Cozaar 50 MG PO SCH (10:24)
[2021-09-28] MEDS: hydroDIURIL 25 MG PO SCH (10:24)
[2021-09-28] MEDS: Abilify 10 MG PO SCH (10:25)
[2021-09-28] MEDS: Glucophage 500 MG PO SCH ×2 (10:26→16:42)
[2021-09-28] MEDS: Neurontin PO SCH ×2 (10:26→21:21)
[2021-09-28] MEDS: NORCO 5/325 MG PO PRN ×3 (10:26→21:21)
[2021-09-28] MEDS: LOPID PO SCH ×2 (10:27→21:21)
[2021-09-28] MEDS: PROTONIX 40 MG IV IV SCH (10:27)
[2021-09-28] MEDS: Lantus Insulin SQ SCH (10:45)
[2021-09-28] MEDS: HUMALOG SQ PRN ×4 (10:49→23:20)
--- NOTE | 2021-09-28 11:56 | OP ---
SURGERY DATE/TIME: 09/28/2021 0712 PREOPERATIVE DIAGNOSES: 1) Diabetic foot ulcer. 2) Peripheral neuropathy. 3) Hyperglycemia. 4) Uncontrolled diabetes mellitus. 5) Osteomyelitis second digit left foot. POSTOPERATIVE DIAGNOSES: 1) Diabetic foot ulcer. 2) Peripheral neuropathy. 3) Hyperglycemia. 4) Uncontrolled diabetes mellitus. 5) Osteomyelitis second digit left foot. PROCEDURE: Amputation of second digit with disarticulation, incision and drainage with bone debridement left foot. SURGEON: Pancho Paez DPM. HEAD OF ENGLISH: None. ANESTHESIA: Monitored anesthesia care with preoperative local. HEMOSTASIS: Pressure dressing. ESTIMATED BLOOD LOSS: Less than 10 cc. MATERIALS: 3-0 Nylon, 0.25 inch Iodoform packing. INJECTABLES: 10 cc of 1:1 mixture of 1% lidocaine plain and 0.5% bupivacaine plain injected in a metatarsal block-type fashion around the second metatarsal. INDICATION FOR SURGERY: May is a very pleasant 56-year-old female who presents today for surgical intervention for a diabetic foot ulcer with possible probe to bone and positive surge criteria at minimum. The patient discussion was held prior to surgical intervention indicating all risks, complications and benefits of surgical intervention at this time. The patient's prognosis is determined by vascularity and the extent of the infection and this was discussed at length with the patient and her niece at length. All questions were answered to the patient's apparent satisfaction. Plenty of time was allowed for the patient to ask questions. No guarantees were provided as to the outcome of the surgical intervention. It is with that we decided to proceed. DESCRIPTION OF PROCEDURE AND FINDINGS: The patient is brought into the OR and placed on the OR table in the supine position. At this time monitored anesthesia care was administered and the patient's left lower extremity was prepped and draped in the typical sterile fashion. At this time attention was directed to the dorsal aspect of the second digit where an incision was made utilizing a 15 blade down to the level of the metatarsophalangeal joint. Doing a vertical fish mouth incision over the proximal phalangeal base and salvaging as much skin off of the second digit as possible. At this time the incision was deepened to the level just past the metatarsal where there did appear to be some purulent drainage which was cultured and tracking up the extensor tendon which was cut out. At this time disarticulation of the second digit was performed. The remaining wound was inspected for any signs of remaining infection. It was noted at this time there was a healthy bleeding edge. At this time 3 liters of sterile saline were utilized in a Cysto Tubing-type fashion in order to lavage infection site. Following this, gloves were changed and a partial closure of the wound was performed utilizing a 3-0 Nylon in a trauma suture-type fashion followed by packing of the wound with 0.25 inch Iodoform packing. At this time a dressing consisting of Betadine, Adaptic, 4x4, Kerlix and JAUN was applied to the left foot with minimal compression. The patient was then reversed from anesthesia and returned to the postoperative anesthesia care unit with vital signs stable and vascular status intact. The patient handled the procedure and the anesthesia without complication. Postoperative orders as indicated in the patient's discharge chart.
[2021-09-28] MEDS ORDERED: Cyclobenzaprine 10 MG PO PRN (16:20)
[2021-09-28] MEDS: CLARITIN 10 MG PO SCH (16:42)
[2021-09-28] MEDS: Toprol-Xl 25MG Tablets PO SCH (16:42)
[2021-09-28] MEDS: Effexor XR 75 MG PO SCH (16:42)
[2021-09-28] MEDS: ZOCOR 20MG PO SCH (16:43)
[2021-09-28] MEDS: MOTRIN 600 MG PO PRN (19:59)
[2021-09-28] MEDS: DESYREL 50 MG PO SCH (21:21)
[2021-09-28] MEDS: VANCOMYCIN 1.25 GM/250 ML BAG 1.25 GM/250 ML PIGGYBACK IV SCH (21:22)
[2021-09-28] MEDS ORDERED: Requip 0.5 MG PO SCH (22:00)
[2021-09-29] MEDS: NORCO 5/325 MG PO PRN ×5 (03:01→21:20)
[2021-09-29] MEDS ORDERED: Lactated Ringers 1,000 ML IV SCH (05:00)
[2021-09-29 05:14] LABS: Absolute Neutrophil Ct (ANC) 5.83 x10^3/uL (1.4-6.9); Basophil (Absolute #) 0.07 x10^3/uL (0-0.4); Eosinophil % 4.2 % (0.00-5.0); Eosinophil (Absolute #) 0.42 x10^3/uL (0-0.5); Hematocrit 28.9 % (35-47); Hemoglobin 9.1 g/dL (12.0-16.0); Lymphocyte (Absolute #) 2.64 x10^3/uL (1.0-4.6); Lymphocytes % 26.5 % (24.0-44.0); Mean Cell Volume 82.6 fL (78-100); Mean Corpuscular Hgb Concent. 31.5 g/dL (32-36); Mean Platelet Volume 10.3 fL (7.5-11.0); Monocyte (Absolute #) 0.97 x10^3/uL (0.0-1.3); Monocytes % 9.7 % (0.0-12.0); Neutrophil % 58.6 % (36.0-66.0); Platelet Count 290 x10^3/uL (150-450); Red Cell Distribution Width 14.6 % (11.5-14.0)
[2021-09-29 05:58] LABS: ANION GAP 12.6 MEQ/L (5-15); BLOOD UREA NITROGEN 21 mg/dL (7-17); CHLORIDE 101 mmol/L (98-107); Calcium 7.9 mg/dL (8.4-10.2); Carbon Dioxide 23 mmol/L (22-30); Creatinine 1 0.81 mg/dL (0.52-1.04); EST GLOMERULAR FILTRATION RATE > 60.0 ML/MIN; Glucose 339 mg/dL (74-106); MAGNESIUM 1.6 mg/dL (1.6-2.3); Potassium 3.4 mmol/L (3.5-5.1); SODIUM 134 mmol/L (137-145)
[2021-09-29] MEDS: PIPERACILLIN/TAZOBACTAM 3.375 GM in Sodium Chloride 100ML MINI-BAG PLUS 100 ML IV SCH ×3 (06:00→16:44)
[2021-09-29] MEDS: Glucophage 500 MG PO SCH ×2 (08:29→16:45)
[2021-09-29] MEDS: HUMALOG SQ PRN ×4 (08:30→21:21)
[2021-09-29] MEDS: Lantus Insulin SQ SCH (08:30)
--- NOTE | 2021-09-29 08:59 | PCM.NOTE ---
Date and Time: 09/29/21854 Subjective Assessment: Her pain is controlled with meds. Her BS was 341 this morning; she says it's been hard to control because pharmacy has been having difficulty getting her testing supplies. Sees Dr. Shafer. - Review of Systems Constitutional: No Fever Abdominal/Gastrointestinal: No Vomiting Objective Exam General Appearance: no apparent distress, alert Neurologic Exam: oriented x 3, cooperative Skin Exam: normal color, warm, dry, other (R foot is wrapped), No rash Wound Assessment: Skin/Wound Assessment Wound/Incision Assessment Start: 09/27/21 20:00 Text: Status: Active Freq: Q4H Protocol: Document 09/29/21 04:00 MATT (Rec: 09/29/21 04:27 MATT [id number]) Wound/Incision Assessment RIGHT FOOT SECOND TOE Wound Assessment Shift Assessment Wound Type Amputation Wound Stage Non Pressure Wound Dressing Status Dry & Intact Drainage Amount None Comment DRESSING REMAINS DRY AND INTACT Wound Photo Photo Taken No Ears, Nose, Throat Exam: moist mucous membranes Neck Exam: normal inspection Respiratory Exam: normal breath sounds, lungs clear, No crackles/rales, No rhonchi, No wheezing Cardiovascular Exam: regular rate/rhythm, normal heart sounds, No murmur Gastrointestinal/Abdomen Exam: soft, No normal bowel sounds (hypoactive but present) Extremity Exam: No swelling OBJECTIVE DATA Vital Signs: Vital Signs - 24 hr Temp Pulse Resp BP Pulse Ox 09/29/21 07:59 95.9 F 91 H 19 97/55 90 L 09/29/21 03:23 97.5 F 90 16 102/58 91 L 09/28/21 23:48 98.5 F 89 16 121/58 92 L 09/28/21 18:53 99.5 F 93 H 16 132/61 97 09/28/21 17:00 98.5 F 88 16 102/58 90 L 09/28/21 13:00 98.7 F 89 16 134/71 92 L 09/28/21 09:04 98.0 F 87 16 119/66 94 L Pain Assessment - Last Documented Pain Intensity 4 Pain Scale Used 0-10 Pain Scale Intake and Output: Intake & Output 09/26/21 09/27/21 09/28/21 09/29/21 11:59 11:59 11:59 11:59 Intake Total 328 1290 Output Total 500 Balance -172 1290 Weight 79.4 kg 79.7 kg Lab Results: Lab Results-Last 24 Hours 09/28/21 09/28/21 09/28/21 Range/Units 10:35 13:24 15:48 WBC (4.0-10.5) x10^3/uL RBC (4.1-5.4) x10^6/uL Hgb (12.0-16.0) g/dL Hct (35-47) % MCV (78-100) fL MCH (26-32) pg MCHC (32-36) g/dL RDW (11.5-14.0) % Plt Count (150-450) x10^3/uL MPV (7.5-11.0) fL Gran % (36.0-66.0) % Immature Gran % (Auto) (0.00-0.4) % Nucleat RBC Rel Count (0.00-0.1) % Eos # (Auto) (0-0.5) x10^3/uL Immature Gran # (Auto) (0.00-0.03) x10^3u/L Absolute Lymphs (auto) (1.0-4.6) x10^3/uL Absolute Monos (auto) (0.0-1.3) x10^3/uL Absolute Nucleated RBC (0.00-0.01) x10^3u/L Lymphocytes % (24.0-44.0) % Monocytes % (0.0-12.0) % Eosinophils % (0.00-5.0) % Basophils % (0.0-0.4) % Absolute Granulocytes (1.4-6.9) x10^3/uL Basophils # (0-0.4) x10^3/uL Sodium (137-145) mmol/L Potassium (3.5-5.1) mmol/L Chloride (98-107) mmol/L Carbon Dioxide (22-30) mmol/L Anion Gap (5-15) MEQ/L BUN (7-17) mg/dL Creatinine (0.52-1.04) mg/dL Estimated GFR ML/MIN Glucose (74-106) mg/dL POC Glucometer 384 H 402 H 360 H (74 to 106) mg/dL Calcium (8.4-10.2) mg/dL Magnesium (1.6-2.3) mg/dL 09/28/21 09/29/21 09/29/21 Range/Units 21:18 04:55 04:55 WBC 10.0 (4.0-10.5) x10^3/uL RBC 3.50 L (4.1-5.4) x10^6/uL Hgb 9.1 L (12.0-16.0) g/dL Hct 28.9 L (35-47) % MCV 82.6 (78-100) fL MCH 26.0 (26-32) pg MCHC 31.5 L (32-36) g/dL RDW 14.6 H (11.5-14.0) % Plt Count 290 (150-450) x10^3/uL MPV 10.3 (7.5-11.0) fL Gran % 58.6 (36.0-66.0) % Immature Gran % (Auto) 0.3 (0.00-0.4) % Nucleat RBC Rel Count 0.0 (0.00-0.1) % Eos # (Auto) 0.42 (0-0.5) x10^3/uL Immature Gran # (Auto) 0.03 (0.00-0.03) x10^3u/L Absolute Lymphs (auto) 2.64 (1.0-4.6) x10^3/uL Absolute Monos (auto) 0.97 (0.0-1.3) x10^3/uL Absolute Nucleated RBC 0.00 (0.00-0.01) x10^3u/L Lymphocytes % 26.5 (24.0-44.0) % Monocytes % 9.7 (0.0-12.0) % Eosinophils % 4.2 (0.00-5.0) % Basophils % 0.7 (0.0-0.4) % Absolute Granulocytes 5.83 (1.4-6.9) x10^3/uL Basophils # 0.07 (0-0.4) x10^3/uL Sodium 134 L (137-145) mmol/L Potassium 3.4 L (3.5-5.1) mmol/L Chloride 101 (98-107) mmol/L Carbon Dioxide 23 (22-30) mmol/L Anion Gap 12.6 (5-15) MEQ/L BUN 21 H (7-17) mg/dL Creatinine 0.81 (0.52-1.04) mg/dL Estimated GFR > 60.0 ML/MIN Glucose 339 H (74-106) mg/dL POC Glucometer 309 H (74 to 106) mg/dL Calcium 7.9 L (8.4-10.2) mg/dL Magnesium 1.6 (1.6-2.3) mg/dL 09/29/21 Range/Units 07:14 WBC (4.0-10.5) x10^3/uL RBC (4.1-5.4) x10^6/uL Hgb (12.0-16.0) g/dL Hct (35-47) % MCV (78-100) fL MCH (26-32) pg MCHC (32-36) g/dL RDW (11.5-14.0) % Plt Count (150-450) x10^3/uL MPV (7.5-11.0) fL Gran % (36.0-66.0) % Immature Gran % (Auto) (0.00-0.4) % Nucleat RBC Rel Count (0.00-0.1) % Eos # (Auto) (0-0.5) x10^3/uL Immature Gran # (Auto) (0.00-0.03) x10^3u/L Absolute Lymphs (auto) (1.0-4.6) x10^3/uL Absolute Monos (auto) (0.0-1.3) x10^3/uL Absolute Nucleated RBC (0.00-0.01) x10^3u/L Lymphocytes % (24.0-44.0) % Monocytes % (0.0-12.0) % Eosinophils % (0.00-5.0) % Basophils % (0.0-0.4) % Absolute Granulocytes (1.4-6.9) x10^3/uL Basophils # (0-0.4) x10^3/uL Sodium (137-145) mmol/L Potassium (3.5-5.1) mmol/L Chloride (98-107) mmol/L Carbon Dioxide (22-30) mmol/L Anion Gap (5-15) MEQ/L BUN (7-17) mg/dL Creatinine (0.52-1.04) mg/dL Estimated GFR ML/MIN Glucose (74-106) mg/dL POC Glucometer 341 H (74 to 106) mg/dL Calcium (8.4-10.2) mg/dL Magnesium (1.6-2.3) mg/dL Radiology Exams: Radiology Procedures Category Date Time Status FOOT (MINIMUM 3 VIEWS) Stat Exams 09/27/21 15:13 Completed Multi-Disciplinary Progress Notes: Multi-Disciplinary Progress Notes 09/28/21 15:40 Physical Therapy Note by Issac(L#[id number])Mackenzie CHART SCREEN COMPLETED TODAY. SPOKE W/ PT. RE: NEED FOR KNEE SCOOTER. HOSPITAL'S DEVICE PLACED IN ROOM. PT. REPORTS SHE DOES NOT FEEL UP TO ATTEMPTING TRAINING W/ DEVICE TODAY. ADVISED PT. THAT WE WOULD ATTEMPT IN THE A.M. Initialized on 09/28/21 15:40 - END OF NOTE 09/28/21 11:00 Case Management Note by Padmini Washington S/W CROW- HE WANTS TO HOLD ON PICC LINE PLACEMENT AT THIS TIME HE STATES THERE IS A POSSIBILITY THAT PATIENT CAN DC ON PO ANTIBIOTICS. HE WILL UPDATE CASE MANAGEMENT IF THIS APPEARS UNLIKELY. PATIENT WILL NEED TO BE NON WTBEARING AT DC MUCH POSSIBLE. HE PLANS TO WORK WITH PATIENT ON THIS SO SHE CAN KEEP WORKING HOWEVER PATIENT WILL NEED THE KNEE SCOOTER TO USE MUCH POSSIBLE WHEN NOT AT WORK. ORDER FAXED TO [facility] WITH INSTRUCTIONS TO DELIVER TO [facility] Initialized on 09/28/21 11:00 - END OF NOTE Assessment/Plan (1) Abscess of skin and subcutaneous tissue Current Visit: Yes Status: Acute Qualifiers: Site of cutaneous abscess: trunk Site of cutaneous abscess of trunk: abdominal wall Qualified Code(s): L02.211 - Cutaneous abscess of abdominal wall Assessment & Plan: On vanc/zosyn day #3 Code(s): L02.91 - CUTANEOUS ABSCESS, UNSPECIFIED (2) Foot ulcer due to secondary DM Current Visit: Yes Status: Acute Assessment & Plan: Per Dr. Deleon, thank you. Wound currently open and I believe the plan is closure prior to discharge to home. Code(s): E13.621 - OTHER SPECIFIED DIABETES MELLITUS WITH FOOT ULCER; L97.509 - NON-PRESSURE CHRONIC ULCER OTH PRT UNSP FOOT W UNSP SEVERITY (3) Hyperglycemia Current Visit: Yes Status: Chronic Assessment & Plan: started on lantus yesterday, with BS still in the 300s. Will likely have to increase the lantus for tomorrow after observing BS and SS coverage today. Code(s): R73.9 - HYPERGLYCEMIA, UNSPECIFIED (4) Diabetes mellitus out of control Current Visit: No Status: Chronic Qualifiers: Diabetes mellitus type: type 2 Glycemic state: with hyperglycemia Quali fied Code(s): E11.65 - Type 2 diabetes mellitus with hyperglycemia Code(s): E11.65 - TYPE 2 DIABETES MELLITUS WITH HYPERGLYCEMIA (5) IDDM (insulin dependent diabetes mellitus) Current Visit: No Status: Chronic Code(s): E11.9 - TYPE 2 DIABETES MELLITUS WITHOUT COMPLICATIONS; Z79.4 - PRISON (CURRENT) USE OF INSULIN
[2021-09-29] MEDS: Ecotrin 325 MG PO SCH (10:23)
[2021-09-29] MEDS: PROTONIX 40 MG IV IV SCH (10:23)
[2021-09-29] MEDS: ZOCOR 20MG PO SCH (10:23)
[2021-09-29] MEDS: Abilify 10 MG PO SCH (10:23)
[2021-09-29] MEDS: Effexor XR 75 MG PO SCH (10:23)
[2021-09-29] MEDS: Acidophilus TABLET PO SCH ×3 (10:23→21:21)
[2021-09-29] MEDS: Cozaar 50 MG PO SCH (10:24)
[2021-09-29] MEDS: CLARITIN 10 MG PO SCH (10:24)
[2021-09-29] MEDS: Requip 0.5 MG PO SCH (10:24)
[2021-09-29] MEDS: hydroDIURIL 25 MG PO SCH (10:24)
[2021-09-29] MEDS: Neurontin PO SCH ×2 (10:24→21:21)
[2021-09-29] MEDS: LOPID PO SCH ×2 (10:25→21:21)
[2021-09-29] MEDS: Toprol-Xl 25MG Tablets PO SCH (10:25)
--- NOTE | 2021-09-29 13:10 | XRAY ---
Indication: Osteomyelitis. Comparison: None 3 nonweightbearing views right foot demonstrates 2nd toe amputation with soft tissue swelling/subcutaneous air bubbles presumed postoperative. Elsewhere tiny heel spurs and extensive scattered vascular calcifications. No other bony, articular, or soft tissue abnormalities.
--- NOTE | 2021-09-29 13:34 | XRAY ---
Indication: Osteomyelitis. Two-dimensional sonogram and color Doppler imaging of the major arteries of the right leg performed. Comparison: None Right leg demonstrates mild scattered arteriosclerotic disease in the visualized common femoral, deep femoral, superficial femoral, popliteal, posterior tibial, and dorsal pedal arteries. No critical stenosis/obstruction. Arterial waveforms are multiphasic in the common femoral, superficial femoral, deep femoral arteries. Arterial waveforms are monophasic in the remaining popliteal, posterior tibial, and dorsal pedal arteries. Impression: Mild scattered arteriosclerotic disease throughout the right leg without critical stenosis/obstruction.
[2021-09-29] MEDS ORDERED: TROUGH DRUG LEVELS IJ ONE (15:30)
--- NOTE | 2021-09-29 15:51 | XRAY ---
Indication: Osteomyelitis. Right ankle brachial index exam performed. Comparison: None Right arm brachial pressure is 122. Right ankle pressure is 157. Ankle brachial index is 1.29, normal. Impression: Normal right EVERT.
--- NOTE | 2021-09-29 16:04 | PCM.NOTE ---
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 Patient is progressing without significant complication at this time. Pain has improved quite significantly. Resounding cellulitis has also diminished quite significantly. Patient does have symptom of diarrhea however she does have this issue with antibiotics generally. Medicine managing. She currently denies any constitutional symptoms of infection. She denies any other pedal complaints Physical Exam - Vascular Peripheral Pulses: Posterior tibialis: 2+, Dorsalis-Pedis: 2+ Capillary Refill Time: < 3 seconds Hair Growth: Symmetrical and Bilateral Varicosities: Negtive Edema: None Edema Degree: 2+ Skin: Supple, not atrophic Skin Temperature: Warm to touch - Narrative Narrative Physical Exam: Podiatry Physical Exam Dermatological assessment demonstrating blanchable skin edges and second digit amputation site Stitches clean dry and intact. OBJECTIVE DATA Vital Signs: Vital Signs - 24 hr Temp Pulse Resp BP Pulse Ox 09/29/21 15:27 18 09/29/21 13:00 97.7 F 83 21 120/59 93 L 09/29/21 12:00 21 09/29/21 08:00 19 09/29/21 07:59 95.9 F 91 H 19 97/55 90 L 09/29/21 03:23 97.5 F 90 16 102/58 91 L 09/28/21 23:48 98.5 F 89 16 121/58 92 L 09/28/21 18:53 99.5 F 93 H 16 132/61 97 09/28/21 17:00 98.5 F 88 16 102/58 90 L Pain Assessment - Last Documented Pain Intensity 2 Pain Scale Used 0-10 Pain Scale Intake and Output: Intake & Output 09/27/21 09/28/21 09/29/21 09/30/21 11:59 11:59 11:59 11:59 Intake Total 328 1650 480 Output Total 500 300 Balance -172 1650 180 Weight 79.4 kg 79.7 kg Lab Results: Lab Results-Last 24 Hours 09/28/21 09/29/21 09/29/21 Range/Units 21:18 04:55 04:55 WBC 10.0 (4.0-10.5) x10^3/uL RBC 3.50 L (4.1-5.4) x10^6/uL Hgb 9.1 L (12.0-16.0) g/dL Hct 28.9 L (35-47) % MCV 82.6 (78-100) fL MCH 26.0 (26-32) pg MCHC 31.5 L (32-36) g/dL RDW 14.6 H (11.5-14.0) % Plt Count 290 (150-450) x10^3/uL MPV 10.3 (7.5-11.0) fL Gran % 58.6 (36.0-66.0) % Immature Gran % (Auto) 0.3 (0.00-0.4) % Nucleat RBC Rel Count 0.0 (0.00-0.1) % Eos # (Auto) 0.42 (0-0.5) x10^3/uL Immature Gran # (Auto) 0.03 (0.00-0.03) x10^3u/L Absolute Lymphs (auto) 2.64 (1.0-4.6) x10^3/uL Absolute Monos (auto) 0.97 (0.0-1.3) x10^3/uL Absolute Nucleated RBC 0.00 (0.00-0.01) x10^3u/L Lymphocytes % 26.5 (24.0-44.0) % Monocytes % 9.7 (0.0-12.0) % Eosinophils % 4.2 (0.00-5.0) % Basophils % 0.7 (0.0-0.4) % Absolute Granulocytes 5.83 (1.4-6.9) x10^3/uL Basophils # 0.07 (0-0.4) x10^3/uL Sodium 134 L (137-145) mmol/L Potassium 3.4 L (3.5-5.1) mmol/L Chloride 101 (98-107) mmol/L Carbon Dioxide 23 (22-30) mmol/L Anion Gap 12.6 (5-15) MEQ/L BUN 21 H (7-17) mg/dL Creatinine 0.81 (0.52-1.04) mg/dL Estimated GFR > 60.0 ML/MIN Glucose 339 H (74-106) mg/dL POC Glucometer 309 H (74 to 106) mg/dL Calcium 7.9 L (8.4-10.2) mg/dL Magnesium 1.6 (1.6-2.3) mg/dL 09/29/21 09/29/21 Range/Units 07:14 11:41 WBC (4.0-10.5) x10^3/uL RBC (4.1-5.4) x10^6/uL Hgb (12.0-16.0) g/dL Hct (35-47) % MCV (78-100) fL MCH (26-32) pg MCHC (32-36) g/dL RDW (11.5-14.0) % Plt Count (150-450) x10^3/uL MPV (7.5-11.0) fL Gran % (36.0-66.0) % Immature Gran % (Auto) (0.00-0.4) % Nucleat RBC Rel Count (0.00-0.1) % Eos # (Auto) (0-0.5) x10^3/uL Immature Gran # (Auto) (0.00-0.03) x10^3u/L Absolute Lymphs (auto) (1.0-4.6) x10^3/uL Absolute Monos (auto) (0.0-1.3) x10^3/uL Absolute Nucleated RBC (0.00-0.01) x10^3u/L Lymphocytes % (24.0-44.0) % Monocytes % (0.0-12.0) % Eosinophils % (0.00-5.0) % Basophils % (0.0-0.4) % Absolute Granulocytes (1.4-6.9) x10^3/uL Basophils # (0-0.4) x10^3/uL Sodium (137-145) mmol/L Potassium (3.5-5.1) mmol/L Chloride (98-107) mmol/L Carbon Dioxide (22-30) mmol/L Anion Gap (5-15) MEQ/L BUN (7-17) mg/dL Creatinine (0.52-1.04) mg/dL Estimated GFR ML/MIN Glucose (74-106) mg/dL POC Glucometer 341 H 347 H (74 to 106) mg/dL Calcium (8.4-10.2) mg/dL Magnesium (1.6-2.3) mg/dL Radiology Exams: Radiology Procedures Category Date Time Status EVERT/SEG PRESSURE UNILAT [US] Routine Exams 09/29/21 12:10 Completed ARTERIAL UNILAT/LTD LOWER EXT [US] Urgent Exams 09/29/21 13:22 Completed FOOT (MINIMUM 3 VIEWS) Stat Exams 09/27/21 15:13 Completed FOOT (MINIMUM 3 VIEWS) Urgent Exams 09/29/21 11:57 Completed Multi-Disciplinary Progress Notes: Multi-Disciplinary Progress Notes 09/29/21 11:10 Case Management Note by Padmini Washington PATIENT CONTINUES TO AWAIT DELAYED CLOSURE ON TUESDAY- WILL CONTINUE TO FOLLOW AND ASSESS FOR NEEDS ALONG THE WAY TO DC Initialized on 09/29/21 11:10 - END OF NOTE Assessment/Plan (1) Peripheral sensory neuropathy due to type 2 diabetes mellitus Current Visit: Yes Status: Acute Assessment & Plan: Patient examination and evaluation. Radiographs demonstrating interval articulation of the second digit of the right foot. Dressings changed demonstrating blanchable skin edges and resolving cellulitis and erythema. Patient will proceed with IV antibiotics at this time on discharge will likely transition to outpatient on p.o. antibiotics. PT OT consult for assessment for ambulation in knee scooter until at minimum postop day #7 Dressings reapplied consisting of iodine Adaptic 4 x 4 Curlex and Anjel. Plan for return to the OR on at noon for delayed primary closure. Will monitor closely at this time Code(s): E11.42 - TYPE 2 DIABETES MELLITUS WITH DIABETIC POLYNEUROPATHY (2) Foot ulcer due to secondary DM Current Visit: Yes Status: Acute Code(s): E13.621 - OTHER SPECIFIED DIABETES MELLITUS WITH FOOT ULCER; L97.509 - NON-PRESSURE CHRONIC ULCER OTH PRT UNSP FOOT W UNSP SEVERITY (3) Osteomyelitis due to type 2 diabetes mellitus Current Visit: Yes Status: Acute Code(s): E11.69 - TYPE 2 DIABETES MELLITUS WITH OTHER SPECIFIED COMPLICATION; M86.9 - OSTEOMYELITIS, UNSPECIFIED (4) Abscess of skin and subcutaneous tissue Current Visit: Yes Status: Acute Qualifiers: Site of cutaneous abscess: trunk Site of cutaneous abscess of trunk: abdominal wall Qualified Code(s): L02.211 - Cutaneous abscess of abdominal wall Code(s): L02.91 - CUTANEOUS ABSCESS, UNSPECIFIED (5) Diabetes mellitus out of control Current Visit: No Status: Chronic Qualifiers: Diabetes mellitus type: type 2 Glycemic state: with hyperglycemia Qualified Code(s): E11.65 - Type 2 diabetes mellitus with hyperglycemia Code(s): E11.65 - TYPE 2 DIABETES MELLITUS WITH HYPERGLYCEMIA (6) Hyperglycemia Current Visit: Yes Status: Chronic Code(s): R73.9 - HYPERGLYCEMIA, UNSPECIFIED
[2021-09-29] MEDS ORDERED: VANCOMYCIN 1.5 GRAM/300 ML BAG 1.5 GM/300 ML PIGGYBACK IV ONE (16:45)
[2021-09-29] MEDS: HUMALOG SQ SCH (16:45)
[2021-09-29 17:11] LABS: 027 TOX PROD PRESUMPTIVE NEGATIVE (NEGATIVE); TOXIGENIC C. DIFF ORG NEGATIVE (NEGATIVE)
[2021-09-29] MEDS: VANCOMYCIN 1.25 GM/250 ML BAG 1.25 GM/250 ML PIGGYBACK IV SCH (18:44)
[2021-09-29] MEDS: DESYREL 50 MG PO SCH (21:21)
[2021-09-30] MEDS: PIPERACILLIN/TAZOBACTAM 3.375 GM in Sodium Chloride 100ML MINI-BAG PLUS 100 ML IV SCH ×5 (00:32→23:20)
[2021-09-30] MEDS: Lomotil PO PRN ×3 (04:01→23:20)
[2021-09-30] MEDS: NORCO 5/325 MG PO PRN ×4 (04:39→22:19)
[2021-09-30] MEDS: VANCOMYCIN 1.25 GM/250 ML BAG 1.25 GM/250 ML PIGGYBACK IV SCH ×2 (05:20→17:09)
[2021-09-30] MEDS: Glucophage 500 MG PO SCH ×2 (08:10→17:09)
[2021-09-30] MEDS: Lantus Insulin SQ SCH ×2 (08:11→09:03)
[2021-09-30] MEDS: HUMALOG SQ SCH ×3 (08:12→17:10)
[2021-09-30] MEDS: HUMALOG SQ PRN ×2 (08:13→11:55)
--- NOTE | 2021-09-30 08:40 | PCM.NOTE ---
Date and Time: 09/30/21836 Subjective Assessment: Pt is yanet po well. Had one loose stool; c. diff neg so starting lomotil prn. Her foot pain is controlled with po meds. BS in 200s. - Review of Systems Constitutional: No Fever Abdominal/Gastrointestinal: Diarrhea, No Vomiting Objective Exam General Appearance: no apparent distress, alert, obese Neurologic Exam: oriented x 3, cooperative Skin Exam: normal color, warm, dry, No rash Wound Assessment: Skin/Wound Assessment Wound/Incision Assessment Start: 09/27/21 20:00 Text: Status: Active Freq: Q4H Protocol: Document 09/30/21 07:44 AUSTIN (Rec: 09/30/21 07:47 AUSTNI [id number]) Wound/Incision Assessment RIGHT FOOT SECOND TOE Wound Assessment Shift Assessment Wound Type Amputation Wound Stage Non Pressure Wound Dressing Status Dry & Intact Drainage Amount None Comment 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 Wound Photo Photo Taken No Eye Exam: eyes nml inspection Ears, Nose, Throat Exam: moist mucous membranes Neck Exam: normal inspection Respiratory Exam: normal breath sounds, lungs clear, No crackles/rales, No rhonchi, No wheezing Cardiovascular Exam: regular rate/rhythm, normal heart sounds, No murmur Gastrointestinal/Abdomen Exam: soft, normal bowel sounds, No tenderness, No distention, No mass, No guarding, No rebound Extremity Exam: other (LLE no edema) Back Exam: normal inspection, No rash OBJECTIVE DATA Vital Signs: Vital Signs - 24 hr Temp Pulse Resp BP Pulse Ox 09/30/21 07:44 16 09/30/21 07:17 97.9 F 92 H 16 118/59 91 L 09/30/21 04:22 97.5 F 90 17 124/58 90 L 09/30/21 04:00 17 09/30/21 00:30 98.0 F 89 16 103/55 92 L 09/29/21 20:13 97.9 F 90 18 120/59 92 L 09/29/21 16:39 98.2 F 88 21 114/56 92 L 09/29/21 15:27 18 09/29/21 13:00 97.7 F 83 21 120/59 93 L 09/29/21 12:00 21 Pain Assessment - Last Documented Pain Intensity 3 Pain Scale Used 0-10 Pain Scale Intake and Output: Intake & Output 09/27/21 09/28/21 09/29/21 09/30/21 11:59 11:59 11:59 11:59 Intake Total 328 1650 1680 Output Total 500 300 Balance -172 1650 1380 Weight 79.4 kg 79.7 kg 80.1 kg Lab Results: Lab Results-Last 24 Hours 09/29/21 09/29/21 09/29/21 Range/Units 11:41 15:20 16:02 POC Glucometer 347 H 255 H (74 to 106) mg/dL Hemoglobin A1c (4.5-6.0) % Vancomycin Trough 8.79 L (10-20) ug/mL C. difficile Screen (NEGATIVE) C.difficile 027-NAP1-B1 (NEGATIVE) 09/29/21 09/29/21 09/30/21 Range/Units 20:31 Unknown 05:04 POC Glucometer 252 H (74 to 106) mg/dL Hemoglobin A1c 13.45 H (4.5-6.0) % Vancomycin Trough (10-20) ug/mL C. difficile Screen NEGATIVE (NEGATIVE) C.difficile 027-NAP1-B1 PRESUMPTIVE NEGATIVE (NEGATIVE) 09/30/21 Range/Units 07:28 POC Glucometer 207 H (74 to 106) mg/dL Hemoglobin A1c (4.5-6.0) % Vancomycin Trough (10-20) ug/mL C. difficile Screen (NEGATIVE) C.difficile 027-NAP1-B1 (NEGATIVE) Radiology Exams: Radiology Procedures Category Date Time Status EVERT/SEG PRESSURE UNILAT [US] Routine Exams 09/29/21 12:10 Completed ARTERIAL UNILAT/LTD LOWER EXT [US] Urgent Exams 09/29/21 13:22 Completed FOOT (MINIMUM 3 VIEWS) Urgent Exams 09/29/21 11:57 Completed Multi-Disciplinary Progress Notes: Multi-Disciplinary Progress Notes 09/29/21 11:10 Case Management Note by Padmini [place] PATIENT CONTINUES TO AWAIT DELAYED CLOSURE ON TUESDAY- WILL CONTINUE TO FOLLOW AND ASSESS FOR NEEDS ALONG THE WAY TO DC Initialized on 09/29/21 11:10 - END OF NOTE Assessment/Plan (1) Abscess of skin and subcutaneous tissue Current Visit: Yes Status: Acute Qualifiers: Site of cutaneous abscess: trunk Site of cutaneous abscess of trunk: abdominal wall Qualified Code(s): L02.211 - Cutaneous abscess of abdominal wall Assessment & Plan: On zosyn/vancomycin day #4. Per Dr. Deleon, thank you. Code(s): L02.91 - CUTANEOUS ABSCESS, UNSPECIFIED (2) Foot ulcer due to secondary DM Current Visit: Yes Status: Acute Code(s): E13.621 - OTHER SPECIFIED DIABETES MELLITUS WITH FOOT ULCER; L97.509 - NON-PRESSURE CHRONIC ULCER OTH PRT UNSP FOOT W UNSP SEVERITY (3) Hyperglycemia Current Visit: Yes Status: Chronic Assessment & Plan: BS in the 200s - on lantus 20 units daily. Increase to 25 units daily. 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 On lomotil prn (c. diff neg). add probiotic. Code(s): R19.7 - DIARRHEA, UNSPECIFIED
[2021-09-30] MEDS: hydroDIURIL 25 MG PO SCH (09:01)
[2021-09-30] MEDS: Cozaar 50 MG PO SCH (09:01)
[2021-09-30] MEDS: Toprol-Xl 25MG Tablets PO SCH (09:01)
[2021-09-30] MEDS: MOTRIN 600 MG PO PRN ×2 (09:01→14:26)
[2021-09-30] MEDS: ZOCOR 20MG PO SCH (09:01)
[2021-09-30] MEDS: Acidophilus TABLET PO SCH ×3 (09:02→22:12)
[2021-09-30] MEDS: PROTONIX 40 MG IV IV SCH (09:02)
[2021-09-30] MEDS: Ecotrin 325 MG PO SCH (09:02)
[2021-09-30] MEDS: CLARITIN 10 MG PO SCH (09:02)
[2021-09-30] MEDS: Neurontin PO SCH ×2 (09:02→22:11)
[2021-09-30] MEDS: Abilify 10 MG PO SCH (09:02)
[2021-09-30] MEDS: Effexor XR 75 MG PO SCH (09:02)
[2021-09-30] MEDS: LOPID PO SCH ×2 (09:02→22:12)
[2021-09-30] MEDS: Requip 0.5 MG PO SCH (09:02)
--- NOTE | 2021-09-30 17:00 | PCM.NOTE ---
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 Patient is progressing without significant complication at this time. Pain has improved quite significantly. Resounding cellulitis has also diminished quite significantly. Patient does have symptom of diarrhea however she does have this issue with antibiotics generally. Medicine managing. She currently denies any constitutional symptoms of infection. She denies any other pedal complaints Physical Exam - General General Appearance: no apparent distress - Neuro Neurologic: Epicritic and protopathic - Vascular Peripheral Pulses: Posterior tibialis: 2+, Dorsalis-Pedis: 2+ Capillary Refill Time: < 3 seconds Hair Growth: Symmetrical and Bilateral Edema: None Skin: Supple, not atrophic - Narrative Narrative Physical Exam: Podiatry Physical Exam Dermatological assessment demonstrating blanchable skin edges and second digit amputation site Stitches clean dry and intact. OBJECTIVE DATA Vital Signs: Vital Signs - 24 hr Temp Pulse Resp BP Pulse Ox 09/30/21 16:02 97.7 F 81 18 127/57 91 L 09/30/21 16:00 18 09/30/21 13:00 97.9 F 95 H 16 145/66 92 L 09/30/21 12:00 16 09/30/21 07:44 16 09/30/21 07:17 97.9 F 92 H 16 118/59 91 L 09/30/21 04:22 97.5 F 90 17 124/58 90 L 09/30/21 04:00 17 09/30/21 00:30 98.0 F 89 16 103/55 92 L 09/29/21 20:13 97.9 F 90 18 120/59 92 L Pain Assessment - Last Documented Pain Intensity 3 Pain Scale Used 0-10 Pain Scale Intake and Output: Intake & Output 09/28/21 09/29/21 09/30/21 10/01/21 11:59 11:59 11:59 11:59 Intake Total 328 1650 2160 480 Output Total 500 300 Balance -172 1650 1860 480 Weight 79.4 kg 79.7 kg 80.1 kg Lab Results: Lab Results-Last 24 Hours 09/29/21 09/29/21 09/30/21 Range/Units 20:31 Unknown 05:04 POC Glucometer 252 H (74 to 106) mg/dL Hemoglobin A1c 13.45 H (4.5-6.0) % C. difficile Screen NEGATIVE (NEGATIVE) C.difficile 027-NAP1-B1 PRESUMPTIVE NEGATIVE (NEGATIVE) 09/30/21 09/30/21 09/30/21 Range/Units 07:28 11:33 16:20 POC Glucometer 207 H 188 H 125 H (74 to 106) mg/dL Hemoglobin A1c (4.5-6.0) % C. difficile Screen (NEGATIVE) C.difficile 027-NAP1-B1 (NEGATIVE) Radiology Exams: Radiology Procedures Category Date Time Status EVERT/SEG PRESSURE UNILAT [US] Routine Exams 09/29/21 12:10 Completed ARTERIAL UNILAT/LTD LOWER EXT [US] Urgent Exams 09/29/21 13:22 Completed FOOT (MINIMUM 3 VIEWS) Urgent Exams 09/29/21 11:57 Completed Multi-Disciplinary Progress Notes: Multi-Disciplinary Progress Notes 09/30/21 13:20 Case Management Note by Padmini [place] S/W PATIENT- SHE REPORTS SHE IS GOING BACK TO OR TOMORROW THEN HE PLANS TO SEND HER HOME. [facility] SHOULD BE DELIVERING KNEE SCOOTER TODAY. SHE PLANS TO RETURN HOME TO HER SISTERS HOME AT TIME OF DC FOR A SHORT WHILE. SHE DENIES ANY NEW NEEDS. SHE REPORTS SHE WILL BE ABLE TO GET IN AND OUT OF HOME AND GET AROUND HOME WELL. Initialized on 09/30/21 13:20 - END OF NOTE Assessment/Plan (1) Peripheral sensory neuropathy due to type 2 diabetes mellitus Current Visit: Yes Status: Acute Assessment & Plan: Patient examination and evaluation. Radiographs demonstrating interval articulation of the second digit of the right foot. Dressings changed demonstrating blanchable skin edges and resolving cellulitis and erythema. Patient will proceed with IV antibiotics at this time on discharge will likely transition to outpatient on p.o. antibiotics levofloxacin 500 mg po daily 10 days PT OT consult for assessment for ambulation in knee scooter until at minimum postop day #7 Dressings reapplied consisting of iodine Adaptic 4 x 4 Curlex and Anjel. Plan for return to the OR on at noon for delayed primary closure. Patient will be OK for DC following procedure when all criteria met. Will monitor closely at this time Code(s): E11.42 - TYPE 2 DIABETES MELLITUS WITH DIABETIC POLYNEUROPATHY (2) Foot ulcer due to secondary DM Current Visit: Yes Status: Acute Code(s): E13.621 - OTHER SPECIFIED DIABETES MELLITUS WITH FOOT ULCER; L97.509 - NON-PRESSURE CHRONIC ULCER OTH PRT UNSP FOOT W UNSP SEVERITY (3) Osteomyelitis due to type 2 diabetes mellitus Current Visit: Yes Status: Acute Code(s): E11.69 - TYPE 2 DIABETES MELLITUS WITH OTHER SPECIFIED COMPLICATION; M86.9 - OSTEOMYELITIS, UNSPECIFIED (4) Abscess of skin and subcutaneous tissue Current Visit: Yes Status: Acute Qualifiers: Site of cutaneous abscess: trunk Site of cutaneous abscess of trunk: abdominal wall Qualified Code(s): L02.211 - Cutaneous abscess of abdominal wall Code(s): L02.91 - CUTANEOUS ABSCESS, UNSPECIFIED (5) Diabetes mellitus out of control Current Visit: No Status: Chronic Qualifiers: Diabetes mellitus type: type 2 Glycemic state: with hyperglycemia Qualified Code(s): E11.65 - Type 2 diabetes mellitus with hyperglycemia Code(s): E11.65 - TYPE 2 DIABETES MELLITUS WITH HYPERGLYCEMIA (6) Hyperglycemia Current Visit: Yes Status: Chronic Code(s): R73.9 - HYPERGLYCEMIA, UNSPECIFIED
[2021-09-30] MEDS: DESYREL 50 MG PO SCH (22:11)
[2021-10-01] MEDS: PIPERACILLIN/TAZOBACTAM 3.375 GM in Sodium Chloride 100ML MINI-BAG PLUS 100 ML IV SCH ×2 (05:14→13:18)
[2021-10-01] MEDS: NORCO 5/325 MG PO PRN ×2 (05:17→15:42)
[2021-10-01] MEDS: VANCOMYCIN 1.25 GM/250 ML BAG 1.25 GM/250 ML PIGGYBACK IV SCH (05:18)
[2021-10-01] MEDS: Lomotil PO PRN ×2 (05:18→10:00)
[2021-10-01 05:42] LABS: Absolute Neutrophil Ct (ANC) 5.24 x10^3/uL (1.4-6.9); Basophil (Absolute #) 0.02 x10^3/uL (0-0.4); Eosinophil % 5.7 % (0.00-5.0); Eosinophil (Absolute #) 0.48 x10^3/uL (0-0.5); Hematocrit 30.4 % (35-47); Hemoglobin 9.5 g/dL (12.0-16.0); Lymphocyte (Absolute #) 2.12 x10^3/uL (1.0-4.6); Mean Cell Volume 82.2 fL (78-100); Mean Corpuscular Hemoglobin 25.7 pg (26-32); Mean Corpuscular Hgb Concent. 31.3 g/dL (32-36); Mean Platelet Volume 10.2 fL (7.5-11.0); Monocytes % 7.1 % (0.0-12.0); Neutrophil % 61.6 % (36.0-66.0); Platelet Count 356 x10^3/uL (150-450); White Blood Count 8.5 x10^3/uL (4.0-10.5)
[2021-10-01 05:53] LABS: ALBUMIN 3.5 g/dL (3.5-5.0); ANION GAP 14.5 MEQ/L (5-15); BILIRUBIN,TOTAL 0.3 mg/dL (0.2-1.3); Calcium 8.8 mg/dL (8.4-10.2); Creatinine 1 1.12 mg/dL (0.52-1.04); EST GLOMERULAR FILTRATION RATE 53.1 ML/MIN; Total Protein 7.3 g/dL (6.3-8.2)
[2021-10-01] MEDS: Sodium Chloride 0.9% 1000 ML 1,000 ML IV SCH ×2 (07:40→10:09)
[2021-10-01] MEDS ORDERED: Sodium Chloride 0.9% 1000 ML 1,000 ML ONE ×2 (07:44→12:00)
[2021-10-01] MEDS: Glucophage 500 MG PO SCH (07:51)
[2021-10-01] MEDS: Lantus Insulin SQ SCH (07:51)
[2021-10-01] MEDS: HUMALOG SQ SCH ×2 (07:51→13:16)
--- NOTE | 2021-10-01 08:46 | PCM.DS ---
Discharge Summary Date of Admission: 09/28/21 09:15 Admitting Physician: ANTONIO NAVARRETE Primary Care Provider: JANE FUCHS Allergies Allergies lisinopril Allergy (Verified 09/27/21 14:37) Hospital Summary - Hospital Course Hospital Course: Pt is a 56 yo female pt of mine from [facility] with uncontrolled DM and recent CVA, hx HTN, and peripheral nerve dz who was admitted with ulcer/abscess/cellulitis to R foot. She had just returned to work after extended time off for her CVA, then noticed a "blood blister" on her R foot. She wrapped it and went to work and then it was markedly worse. She was seen by Dr. Deleon, who admitted her to amputate the foot (thank you). She was left open and on IV antibiotics (finishing day #5 of vancomycin and zosyn) and after closure today she may be going home. Her BS have been elevated into the 200s up to 400. She was given increasing doses of lantus and her sugar did decrease. Covering with sliding scale today as she is NPO. Pt had diarrhea, c. diff neg, which is typical for her with antibiotics. She will continue probiotics. Antibiotics at home per Dr. Deleon. - Vitals & Intake/Output Vital Signs: Vital Signs Temperature 97.1 F 10/01/21 08:00 Pulse Rate 90 10/01/21 08:00 Respiratory Rate 18 10/01/21 08:00 Blood Pressure 114/59 10/01/21 08:00 O2 Sat by Pulse Oximetry 94 L 10/01/21 08:00 Intake & Output: Intake & Output 09/28/21 09/29/21 09/30/21 10/01/21 11:59 11:59 11:59 11:59 Intake Total 328 1650 2160 1780 Output Total 500 300 Balance -172 1650 1860 1780 Weight 79.4 kg 79.7 kg 80.1 kg 80 kg - Lab Result Diagrams: 10/01/21 05:05 10/01/21 05:05 Lab Results-Last 24 Hrs: Lab Results-Last 24 Hours 09/30/21 09/30/21 09/30/21 Range/Units 11:33 16:20 20:22 WBC (4.0-10.5) x10^3/uL RBC (4.1-5.4) x10^6/uL Hgb (12.0-16.0) g/dL Hct (35-47) % MCV (78-100) fL MCH (26-32) pg MCHC (32-36) g/dL RDW (11.5-14.0) % Plt Count (150-450) x10^3/uL MPV (7.5-11.0) fL Gran % (36.0-66.0) % Immature Gran % (Auto) (0.00-0.4) % Nucleat RBC Rel Count (0.00-0.1) % Eos # (Auto) (0-0.5) x10^3/uL Immature Gran # (Auto) (0.00-0.03) x10^3u/L Absolute Lymphs (auto) (1.0-4.6) x10^3/uL Absolute Monos (auto) (0.0-1.3) x10^3/uL Absolute Nucleated RBC (0.00-0.01) x10^3u/L Lymphocytes % (24.0-44.0) % Monocytes % (0.0-12.0) % Eosinophils % (0.00-5.0) % Basophils % (0.0-0.4) % Absolute Granulocytes (1.4-6.9) x10^3/uL Basophils # (0-0.4) x10^3/uL Sodium (137-145) mmol/L Potassium (3.5-5.1) mmol/L Chloride (98-107) mmol/L Carbon Dioxide (22-30) mmol/L Anion Gap (5-15) MEQ/L BUN (7-17) mg/dL Creatinine (0.52-1.04) mg/dL Estimated GFR ML/MIN Glucose (74-106) mg/dL POC Glucometer 188 H 125 H 77 (74 to 106) mg/dL Calcium (8.4-10.2) mg/dL Total Bilirubin (0.2-1.3) mg/dL AST (14-36) U/L ALT (0-35) U/L Alkaline Phosphatase (38-126) U/L Serum Total Protein (6.3-8.2) g/dL Albumin (3.5-5.0) g/dL 09/30/21 09/30/21 09/30/21 Range/Units 21:15 22:01 23:24 WBC (4.0-10.5) x10^3/uL RBC (4.1-5.4) x10^6/uL Hgb (12.0-16.0) g/dL Hct (35-47) % MCV (78-100) fL MCH (26-32) pg MCHC (32-36) g/dL RDW (11.5-14.0) % Plt Count (150-450) x10^3/uL MPV (7.5-11.0) fL Gran % (36.0-66.0) % Immature Gran % (Auto) (0.00-0.4) % Nucleat RBC Rel Count (0.00-0.1) % Eos # (Auto) (0-0.5) x10^3/uL Immature Gran # (Auto) (0.00-0.03) x10^3u/L Absolute Lymphs (auto) (1.0-4.6) x10^3/uL Absolute Monos (auto) (0.0-1.3) x10^3/uL Absolute Nucleated RBC (0.00-0.01) x10^3u/L Lymphocytes % (24.0-44.0) % Monocytes % (0.0-12.0) % Eosinophils % (0.00-5.0) % Basophils % (0.0-0.4) % Absolute Granulocytes (1.4-6.9) x10^3/uL Basophils # (0-0.4) x10^3/uL Sodium (137-145) mmol/L Potassium (3.5-5.1) mmol/L Chloride (98-107) mmol/L Carbon Dioxide (22-30) mmol/L Anion Gap (5-15) MEQ/L BUN (7-17) mg/dL Creatinine (0.52-1.04) mg/dL Estimated GFR ML/MIN Glucose (74-106) mg/dL POC Glucometer 76 79 121 H (74 to 106) mg/dL Calcium (8.4-10.2) mg/dL Total Bilirubin (0.2-1.3) mg/dL AST (14-36) U/L ALT (0-35) U/L Alkaline Phosphatase (38-126) U/L Serum Total Protein (6.3-8.2) g/dL Albumin (3.5-5.0) g/dL 10/01/21 10/01/21 10/01/21 Range/Units 05:05 05:05 07:12 WBC 8.5 (4.0-10.5) x10^3/uL RBC 3.70 L (4.1-5.4) x10^6/uL Hgb 9.5 L (12.0-16.0) g/dL Hct 30.4 L (35-47) % MCV 82.2 (78-100) fL MCH 25.7 L (26-32) pg MCHC 31.3 L (32-36) g/dL RDW 15.0 H (11.5-14.0) % Plt Count 356 (150-450) x10^3/uL MPV 10.2 (7.5-11.0) fL Gran % 61.6 (36.0-66.0) % Immature Gran % (Auto) 0.4 (0.00-0.4) % Nucleat RBC Rel Count 0.0 (0.00-0.1) % Eos # (Auto) 0.48 (0-0.5) x10^3/uL Immature Gran # (Auto) 0.03 (0.00-0.03) x10^3u/L Absolute Lymphs (auto) 2.12 (1.0-4.6) x10^3/uL Absolute Monos (auto) 0.60 (0.0-1.3) x10^3/uL Absolute Nucleated RBC 0.00 (0.00-0.01) x10^3u/L Lymphocytes % 25.0 (24.0-44.0) % Monocytes % 7.1 (0.0-12.0) % Eosinophils % 5.7 H (0.00-5.0) % Basophils % 0.2 (0.0-0.4) % Absolute Granulocytes 5.24 (1.4-6.9) x10^3/uL Basophils # 0.02 (0-0.4) x10^3/uL Sodium 138 (137-145) mmol/L Potassium 4.0 (3.5-5.1) mmol/L Chloride 103 (98-107) mmol/L Carbon Dioxide 25 (22-30) mmol/L Anion Gap 14.5 (5-15) MEQ/L BUN 17 (7-17) mg/dL Creatinine 1.12 H (0.52-1.04) mg/dL Estimated GFR 53.1 ML/MIN Glucose 254 H (74-106) mg/dL POC Glucometer 277 H (74 to 106) mg/dL Calcium 8.8 (8.4-10.2) mg/dL Total Bilirubin 0.30 (0.2-1.3) mg/dL AST 78 H (14-36) U/L ALT 53 H (0-35) U/L Alkaline Phosphatase 295 H (38-126) U/L Serum Total Protein 7.3 (6.3-8.2) g/dL Albumin 3.5 (3.5-5.0) g/dL Micro Results-Entire Visit: Microbiology 09/28/21 07:27 Aerobic Organism ID Result 1 - Final Toe - R Second Not Reportable Anaerobic Culture - Final Not Reportable Anaerobic Culture Result 1 - Final Not Reportable Anaerobic Culture Result 3 - Final Not Reportable Anaerobic Culture Result 4 - Final Not Reportable Anaerobic Bacterial Sensitivity - Final Not Reportable 09/27/21 15:15 Blood Culture - Preliminary Blood NO GROWTH TO DATE 09/27/21 15:15 Blood Culture - Preliminary Blood NO GROWTH TO DATE Accuchecks Date 10/01/21 Date 09/30/21 Date 09/30/21 Date 09/30/21 Time 07:41 Time 21:06 Time 16:23 Time 11:51 - Radiology Exams Ordered Rad Exams-Entire Visit: Radiology Procedures Category Date Time Status EVERT/SEG PRESSURE UNILAT [US] Routine Exams 09/29/21 12:10 Completed ARTERIAL UNILAT/LTD LOWER EXT [US] Urgent Exams 09/29/21 13:22 Completed FOOT (MINIMUM 3 VIEWS) Urgent Exams 09/29/21 11:57 Completed - Procedures and Test Procedures and Tests throughout Hospitalization: Therapy Orders & Screens 09/27/21 20:36 Respiratory Therapy Assessment DAILY Comment: Diagnosis: Osteomyelitis toe secondary to diabetes mellitus 09/28/21 13:56 PT Eval & Treat ( Order) ONCE Reason for Eval:: [employer]EE [employer] TRAINING Diagnosis: Osteomyelitis secondary to diabetes mellitus Discharge Exam General Appearance: no apparent distress, alert Neurologic Exam: oriented x 3, cooperative Eye Exam: eyes nml inspection Ears, Nose, Throat Exam: moist mucous membranes Neck Exam: normal inspection Respiratory Exam: normal breath sounds, lungs clear, No crackles/rales, No rhonchi, No wheezing Cardiovascular Exam: regular rate/rhythm, normal heart sounds, No murmur Extremity Exam: other (R foot wrapped. 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 Deleon. Day #5 Vanc and Zosyn. Likely closure today and home after that. F/u with Dr. Deleon outpatient. Code(s): L02.91 - CUTANEOUS ABSCESS, UNSPECIFIED (2) Foot ulcer due to secondary DM Current Visit: Yes Status: Acute Code(s): E13.621 - OTHER SPECIFIED DIABETES MELLITUS WITH FOOT ULCER; L97.509 - NON-PRESSURE CHRONIC ULCER OTH PRT UNSP FOOT W UNSP SEVERITY (3) Hyperglycemia Current Visit: Yes Status: Chronic Code(s): R73.9 - HYPERGLYCEMIA, UNSPECIFIED (4) Diabetes mellitus out of control Current Visit: No Status: Chronic Code(s): E11.65 - TYPE 2 DIABETES MELLITUS WITH HYPERGLYCEMIA (5) IDDM (insulin dependent diabetes mellitus) Current Visit: No Status: Chronic Code(s): E11.9 - TYPE 2 DIABETES MELLITUS WITHOUT COMPLICATIONS; Z79.4 - CARE HOME (CURRENT) USE OF INSULIN (6) Diarrhea Current Visit: No Status: Acute Assessment & Plan: lomotil prn Code(s): R19.7 - DIARRHEA, UNSPECIFIED - Discharge Disposition: Home, Self-Care Condition: Stable Prescriptions: New Lactobacillus Acidophilus [Acidophilus TABLET] 1 tab PO TID #30 tablet Diphenoxylate HCl/Atropine [Lomotil] 2 tablet PO QID PRN PRN #30 tablet PRN Reason: Diarrhea Continue Losartan Potassium 25 mg PO DAILY Hydrochlorothiazide 25 mg [hydroDIURIL 25 MG] 25 mg PO DAILY Gemfibrozil [Lopid] 600 mg PO BID ARIPiprazole [Abilify] 10 mg PO DAILY Metformin HCl 1000 mg [Glucophage 1000 MG] 1,000 mg PO BID Gabapentin [Neurontin] 400 mg PO BID Ropinirole HCl 1 mg PO QAM Trazodone HCl 50 mg [Desyrel 50 mg] 100 mg PO HS Venlafaxine HCl [Effexor Xr] 150 mg PO DAILY Metoprolol Succinate 25 mg Xl* [Toprol-Xl 25MG Tablets] 25 mg PO QAM Loratadine 10 mg [Claritin 10 mg] 10 mg PO DAILY Simvastatin 80 mg PO QAM Cyclobenzaprine HCl 10 mg [Cyclobenzaprine 10 MG] 10 mg PO DAILY PRN PRN PRN Reason: Muscle Spasms Aspirin EC 81 mg [Ecotrin 81 mg] 81 mg PO DAILY Instructions: Amputation of the Foot or Toe Follow up with: ODALYS LEBRON DPM [ACTIVE STAFF] - JANE FUCHS [Primary Care Provider] -
[2021-10-01] MEDS: PROTONIX 40 MG IV IV SCH (09:16)
[2021-10-01] MEDS ORDERED: Pepcid 20 MG VIAL IV SCH (11:00)
[2021-10-01] MEDS ORDERED: XYLOCAINE 1% HCL 20 ML MDV ONE (11:29)
[2021-10-01] MEDS ORDERED: Pepcid 20 MG VIAL IV ONE (11:43)
[2021-10-01] MEDS ORDERED: SUBLIMAZE 100 MCG/2 ML ONE (12:05)
[2021-10-01] MEDS ORDERED: DIPRIVAN 200 MG/20 ML IV ONE (12:05)
[2021-10-01] MEDS ORDERED: Versed 2 MG/2 ML Injection ONE (12:05)
[2021-10-01] MEDS: Requip 0.5 MG PO SCH (13:14)
[2021-10-01] MEDS: Acidophilus TABLET PO SCH ×2 (13:14→13:46)
[2021-10-01] MEDS: Cozaar 50 MG PO SCH (13:15)
[2021-10-01] MEDS: CLARITIN 10 MG PO SCH (13:15)
[2021-10-01] MEDS: hydroDIURIL 25 MG PO SCH (13:15)
[2021-10-01] MEDS: Effexor XR 75 MG PO SCH (13:15)
[2021-10-01] MEDS: Abilify 10 MG PO SCH (13:15)
[2021-10-01] MEDS: Neurontin PO SCH (13:15)
[2021-10-01] MEDS: Toprol-Xl 25MG Tablets PO SCH (13:16)
[2021-10-01] MEDS: Ecotrin 325 MG PO SCH (13:16)
[2021-10-01] MEDS: LOPID PO SCH (13:16)
[2021-10-01] MEDS: ZOCOR 20MG PO SCH (13:16)
[2021-10-01] MEDS ORDERED: Marcaine Mpf 0.5% Vial 30 Ml IJ ONE (14:29)
[2021-10-01 16:33] VITALS: BP 136/84; PULSE 87; O2SAT 95
[2021-10-01] MEDS ORDERED: TROUGH DRUG LEVELS IJ ONE (17:30)
--- NOTE | 2021-10-02 08:27 | OP ---
SURGERY DATE/TIME: 10/01/2021 1219 PREOPERATIVE DIAGNOSES: 1) Diabetic foot ulcer right foot. 2) Osteomyelitis right foot. 3) Soft tissue abscess. POSTOPERATIVE DIAGNOSES: 1) Diabetic foot ulcer right foot. 2) Osteomyelitis right foot. 3) Soft tissue abscess. PROCEDURE: Delayed primary closure right foot. SURGEON: Pancho Paez DPM. FOREST FIRE FIGHTER: None. ANESTHESIA: MAC plus a preoperative local. 10 cc of 1:1 mixture of 1% lidocaine plain and 0.5% bupivacaine plain. HEMOSTASIS: Pressure dressing. ESTIMATED BLOOD LOSS: Less than 10 cc. INJECTABLES: 10 cc of 1:1 mixture of 1% lidocaine plain and 0.5% bupivacaine plain injected in a second metatarsal block-type fashion. INDICATION FOR SURGERY: May is a very pleasant 56-year-old female who was seen in the emergency department secondary to some nausea, vomiting, fever, chills and increased pain to an ulceration that she self-treated for approximately three weeks prior to her presenting to the emergency department for worsening of ulceration to the distal tip of the second digit. The patient underwent a surgical intervention for amputation disarticulation at the second digit of the right foot and there was some infection that appeared to be tracking with the extensor tendon so the decision was made to proceed with an open wound for several days with packing. The patient had made significant progress and her symptoms have resolved quite significantly. White blood cell count has come down and signs of infection have completely resolved at this time. At this time the patient was ready for delayed primary closure of the wound and ultimately discharged. The patient understands all risks, complications and benefits of surgical intervention including but not limited to risk of infection, hematoma, seroma, possibility of the need for surgical intervention at a later date, possibility of delayed wound healing, nonwound healing and failure of surgical intervention. Plenty of time was allowed for the patient to ask questions which were answered to the patient's apparent satisfaction. No guarantees were provided as to the outcome of the surgical intervention. It is with that we decided to proceed. DESCRIPTION OF PROCEDURE AND FINDINGS: The patient is brought into the OR and placed on the OR table in the supine position. At this time adequate monitored anesthesia care was provided to the patient. The right lower extremity was prepped and draped in the typical sterile fashion. At this time 10 cc injection of a 1:1 mixture of 1% lidocaine plain and 0.5% bupivacaine plain in a second ray block-type fashion. Following this the incision was debrided utilizing a combination of rongeurs, curette and a 15 blade was utilized to incise the lateral-medial borders of the incision to assess for healthy bleeding edge. At this time copious amounts of sterile saline were utilized to flush the surgical site. Following this, a 4-0 Monocryl was utilized to coapt the subcutaneous skin edges in a simple interrupted-type fashion. Following this a 3-0 Nylon was utilized in a horizontal mattress-type fashion to coapt the skin edges. At this time the wound was assessed and deemed to be closed under minimal tension. At this time a dressing consisting of Betadine, Adaptic, 4x4, Kerlix and JAUN was applied to the patient's right foot with minimal compression. The patient was then returned to the postoperative anesthesia care unit with vital signs stable and vascular status intact. The patient handled the anesthesia as well as the procedure without significant complication. Postoperative orders as indicated in the patient's discharge chart.
== END 2021-10-01 16:30 | disposition home or self-care (01) | DRG 41 ==
LOC: ED 14:16 → MED SURG 19:57 → OBSVTOIN 09-28 09:15
PROVIDERS: ADMIT Family Medicine; ATTEND Family Medicine
PROC: 0Y6R0Z0 Detachment at Right 2nd Toe, Complete, Open Approach (ICD-10-PCS; principal; 2021-09-28)
PROC: 0J9Q0ZZ Drainage of Right Foot Subcutaneous Tissue and Fascia, Open Approach (ICD-10-PCS; 2021-09-28)
PROC: 0JQQ0ZZ Repair Right Foot Subcutaneous Tissue and Fascia, Open Approach (ICD-10-PCS; 2021-10-01)
DX: E11.42 Type 2 diabetes mellitus with diabetic polyneuropathy (principal); M86.171 Other acute osteomyelitis, right ankle and foot; L02.611 Cutaneous abscess of right foot; L97.519 Non-pressure chronic ulcer of other part of right foot with unspecified severity; E11.65 Type 2 diabetes mellitus with hyperglycemia; I10 Essential (primary) hypertension; R19.7 Diarrhea, unspecified; Z86.73 Personal history of transient ischemic attack (TIA), and cerebral infarction without residual deficits; Z79.899 Other long term (current) drug therapy; Z20.828 Contact with and (suspected) exposure to other viral communicable diseases; Z79.4 Long term (current) use of insulin
CPT/HCPCS: 0241U; 13160; 28005; 28820; 36415; 73630; 80048; 80053; 80202; 82947; 83036; 83605; 83735; 84145; 85025; 87040; 87070; 87075; 87493; 93922; 93926; 96365; 96367; 96374; 96375; 99024; 99140; 99213; 99215; 99285; G0378; J1650; J1815; J1817; J2250; J2270; J2405; J2704; J3010; J3370; A9270-GY

== ENCOUNTER 2024-01-14 12:49 | Emergency (ER) | payer OTHER ==
[2024-01-14 13:13] VITALS: TEMP 98
--- NOTE | 2024-01-14 13:14 | ERPHSYRPT ---
- History of Present Illness Time Seen by Provider: 01/14/24 13:00 Source: patient, family Exam Limitations: no limitations Physician History: Patient has a history of TIAs. She said she was having another 1. It started about an hour or an hour and a half ago. It is improving and she says. It was worse than it had been in the past. She had some facial involvement and slurred speech. She said she had some tingling and noticing weakness in her right arm and right leg. She said she noticed it when she was ambulating. She is on aspirin already. The symptoms are definitely improving. These are the same symptoms she has had with her TIA in the past. She came in today because of the duration and said that is a little bit worse that it had been in the past. She has no other complaints at this time.Nothing makes his symptoms better or worse.When she initially got here until the time we finished working her up her symptoms had improved. Especially notable was her speech and facial involvement.That was just over a matter of 15 to 20 minutes. Allergies/Adverse Reactions: lisinopril Allergy (Verified 01/14/24 13:13) Home Medications: ARIPiprazole [Abilify] 10 mg PO DAILY 10/21/15 [History] Gabapentin [Neurontin] 400 mg PO BID 04/24/18 [History] Ropinirole HCl 1 mg PO QAM 04/24/18 [History] Trazodone HCl 50 mg [Desyrel 50 mg] 100 mg PO HS 09/27/21 [History] Aspirin EC 81 mg [Ecotrin 81 mg] 81 mg PO DAILY 09/28/21 [History] Metoprolol Succinate 25 mg Xl* [Toprol-Xl 25MG Tablets] 50 mg PO QAM 09/28/21 [History] Buspirone HCl 5 mg [Buspar 5 mg] 5 mg PO TID 01/14/24 [History] Finerenone [Kerendia] 10 mg PO DAILY 01/14/24 [History] Hydroxyzine HCl 25 mg [Atarax 25 mg] 25 mg PO DAILY 01/14/24 [History] Insulin Aspart [Novolog] 0 unit SQ UD 01/14/24 [History] Hx Tetanus, Diphtheria Vaccination/Date Given: Yes Hx Influenza Vaccination/Date Given: Yes Hx Pneumococcal Vaccination/Date Given: Yes - Review of Systems Constitutional: No Symptoms Eyes: No Symptoms Ears, Nose, & Throat: No Symptoms Respiratory: No Symptoms Musculoskeletal: No Symptoms Skin: No Symptoms Neurological: Other (See HPI) Psychological: No Symptoms - Past Medical History Pertinent Past Medical History: Yes Neurological History: Peripheral Neuropathy, Stroke ENT History: No Pertinent History Cardiac History: High Cholesterol, Hypertension Respiratory History: Other Endocrine Medical History: Diabetes Type II Musculoskeletal History: Arthritis GI Medical History: GERD History: No Pertinent History Psycho-Social History: Depression, Anxiety Female Reproductive Disorders: No Pertinent History Other Medical History: BREAST REDUCTION, HYSTERECTOMY, ANXIETY, UNCONTROLLED DM, - Past Surgical History Past Surgical History: Yes Neuro Surgical History: No Pertinent History Cardiac: No Pertinent History Respiratory: No Pertinent History Gastrointestinal: Appendectomy Genitourinary: No Pertinent History Musculoskeletal: No Pertinent History Female Surgical History: Hysterectomy Other Surgical History: breast reduction, I and D perirectal abcess - Social History Smoking Status: Never smoker Exposure to second hand smoke: No Drug Use: none Patient Lives Alone: Yes - Nursing Vital Signs Nursing Vital Signs: Initial Vital Signs Temperature 98.0 F 01/14/24 12:54 Pulse Rate 85 01/14/24 12:54 Blood Pressure 147/70 01/14/24 12:54 O2 Sat by Pulse Oximetry 96 01/14/24 12:54 Pain Scale Pain Intensity 0 - Republic Coma Scale Best Eye Response (Republic): (4) open spontaneously Best Verbal Response ([place]): (5) oriented Best Motor Response ([place]): (6) obeys commands [place] Total: 15 - Physical Exam General Appearance: no apparent distress Eye Exam: bilateral eye: normal inspection, PERRL, EOMI Respiratory: normal breath sounds Cardiovascular: regular rate/rhythm, 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 Her speech seemed to be fairly clear. Her NIH scale was done initially was around a 2-3. Ordered Tests: Active Orders 24 hr Category Date Time Status Mechanical Maintenance STAT Care 01/14/24 12:56 Active EKG-ER Only STAT Care 01/14/24 12:56 Active IV Insertion STAT Care 01/14/24 12:56 Active IV Insertion-2nd Peripheral STAT Care 01/14/24 14:58 Active NPO (ED) STAT Care 01/14/24 12:56 Active CTA HEAD W AND/OR WO CONTRAST [CT] Stat Exams 01/14/24 15:29 Completed HEAD WITHOUT CONTRAST [CT] Stat Exams 01/14/24 12:50 Completed NECK WITH CONTRAST [CT] Stat Exams 01/14/24 15:30 Completed BMP Stat Lab 01/14/24 13:10 Completed CBC W DIFF Stat Lab 01/14/24 13:10 Completed PROTIME WITH INR Stat Lab 01/14/24 13:10 Completed PTT Stat Lab 01/14/24 13:10 Completed TROPONIN Q4H Lab 01/14/24 13:10 Completed TROPONIN Q4H Lab 01/14/24 17:07 Completed TROPONIN Q4H Lab 01/14/24 21:00 Ordered Medication Summary Discontinued Medications Generic Name Dose Route Start Last Admin Trade Name Freq PRN Reason Stop Dose Admin Alteplase, Recombinant 0 mg 01/14/24 14:59 01/14/24 15:07 Alteplase 100 Mg Vial IV 01/14/24 15:00 77.4 mg STAT STA Administration Protocol Lab/Rad Data: Laboratory Result Diagrams 01/14/24 13:10 01/14/24 13:10 Laboratory Results 01/14/24 01/14/24 01/14/24 Range/Units 17:07 13:10 13:10 WBC (3.98-10.04) x10^3/uL RBC (3.93-5.22) x10^6/uL Hgb (11.2-15.7) g/dL Hct (34.1-44.9) % MCV (79.4-94.8) fL MCH (25.6-32.2) pg MCHC (32.2-35.5) g/dL RDW (11.7-14.4) % Plt Count (182-369) x10^3/uL MPV (9.4-12.3) fL Gran % (34.0-71.1) % Immature Gran % (Auto) (0.001-0.429) % Nucleat RBC Rel Count (0.00-0.2) % Eos # (Auto) (0.04-0.36) x10^3/uL Immature Gran # (Auto) (0.001-0.031) x10^3u/L Absolute Lymphs (auto) (1.18-3.74) x10^3/uL Absolute Monos (auto) (0.24-0.86) x10^3/uL Absolute Nucleated RBC (0.00-0.012) x10^3u/L Lymphocytes % (19.3-51.7) % Monocytes % (4.7-12.5) % Eosinophils % (0.7-5.8) % Basophils % (0.1-1.2) % Absolute Granulocytes (1.56-6.13) x10^3/uL Basophils # (0.01-0.08) x10^3/uL PT 10.7 (9.4-12.5) SECONDS INR 0.98 (0.8-3.0) APTT 25.0 L (25.1-36.5) SECONDS Sodium (135-145) mmol/L Potassium (3.5-5.1) mmol/L Chloride (98-107) mmol/L Carbon Dioxide (22-30) mmol/L Anion Gap (5-15) MEQ/L BUN (7-17) mg/dL Creatinine (0.52-1.04) mg/dL Estimated GFR ML/MIN Glucose (74-106) mg/dL Calcium (8.4-10.2) mg/dL Troponin I < 0.012 < 0.012 (0.000-0.033) ng/mL 01/14/24 01/14/24 Range/Units 13:10 13:10 WBC 10.3 H (3.98-10.04) x10^3/uL RBC 4.52 (3.93-5.22) x10^6/uL Hgb 12.2 (11.2-15.7) g/dL Hct 37.1 (34.1-44.9) % MCV 82.1 (79.4-94.8) fL MCH 27.0 (25.6-32.2) pg MCHC 32.9 (32.2-35.5) g/dL RDW 13.2 (11.7-14.4) % Plt Count 307 (182-369) x10^3/uL MPV 10.2 (9.4-12.3) fL Gran % 58.5 (34.0-71.1) % Immature Gran % (Auto) 0.2 (0.001-0.429) % Nucleat RBC Rel Count 0.0 (0.00-0.2) % Eos # (Auto) 0.49 H (0.04-0.36) x10^3/uL Immature Gran # (Auto) 0.02 (0.001-0.031) x10^3u/L Absolute Lymphs (auto) 3.19 (1.18-3.74) x10^3/uL Absolute Monos (auto) 0.48 (0.24-0.86) x10^3/uL Absolute Nucleated RBC 0.00 (0.00-0.012) x10^3u/L Lymphocytes % 31.1 (19.3-51.7) % Monocytes % 4.7 (4.7-12.5) % Eosinophils % 4.8 (0.7-5.8) % Basophils % 0.7 (0.1-1.2) % Absolute Granulocytes 6.02 (1.56-6.13) x10^3/uL Basophils # 0.07 (0.01-0.08) x10^3/uL PT (9.4-12.5) SECONDS INR (0.8-3.0) APTT (25.1-36.5) SECONDS Sodium 138 (135-145) mmol/L Potassium 4.2 (3.5-5.1) mmol/L Chloride 104 (98-107) mmol/L Carbon Dioxide 21 L (22-30) mmol/L Anion Gap 17.7 H (5-15) MEQ/L BUN 22 H (7-17) mg/dL Creatinine 0.82 (0.52-1.04) mg/dL Estimated GFR 81.8 ML/MIN Glucose 232 H (74-106) mg/dL Calcium 9.5 (8.4-10.2) mg/dL Troponin I (0.000-0.033) ng/mL - Progress Progress Note: Patient's symptoms were improving pretty significantly for about 30 minutes after she got here. Her speech was noticeably improved and she did not have any weakness in her upper and lower extremities. Her initial NIH was around 2 or 3. We were waiting on the rest of her workup and that her symptoms started to return and were a little bit worse than they have been before specially around the face and with the speech. We then consulted teleneuro. They did an evaluation suggested that we do tPA. We did that and I ordered CTAs of the head and carotids. I spoke with the neuroteam at [facility]. They wanted us to call them after the CTA said been resulted. We called [facility] with the CTAs. They accepted her for transport 01/14/24 15:35 01/14/24 18:[address] Roman - Departure Departure Disposition: Transfer Clinical Impression: CVA (cerebral vascular accident) Condition: Stable Critical Care Time: Yes Critical Care Time(excluding separately billable procedures): Critical 30-74 mins Referrals: MARCY BUTLER, ALBA, RN [NON-STAFF PHY W/O PRIVILEGES] - Follow up/PCP as directed
[2024-01-14 13:22] LABS: Absolute Neutrophil Ct (ANC) 6.02 x10^3/uL (1.56-6.13); BASOPHIL % 0.7 % (0.1-1.2); Basophil (Absolute #) 0.07 x10^3/uL (0.01-0.08); Eosinophil % 4.8 % (0.7-5.8); Eosinophil (Absolute #) 0.49 x10^3/uL (0.04-0.36); Hematocrit 37.1 % (34.1-44.9); Hemoglobin 12.2 g/dL (11.2-15.7); IMMATURE GRAN # 0.02 x10^3u/L (0.001-0.031); IMMATURE GRAN % 0.2 % (0.001-0.429); Lymphocyte (Absolute #) 3.19 x10^3/uL (1.18-3.74); Lymphocytes % 31.1 % (19.3-51.7); Mean Cell Volume 82.1 fL (79.4-94.8); Mean Corpuscular Hgb Concent. 32.9 g/dL (32.2-35.5); Mean Platelet Volume 10.2 fL (9.4-12.3); Monocyte (Absolute #) 0.48 x10^3/uL (0.24-0.86); Monocytes % 4.7 % (4.7-12.5); Neutrophil % 58.5 % (34.0-71.1); Platelet Count 307 x10^3/uL (182-369); Red Blood Count 4.52 x10^6/uL (3.93-5.22); Red Cell Distribution Width 13.2 % (11.7-14.4); White Blood Count 10.3 x10^3/uL (3.98-10.04)
--- NOTE | 2024-01-14 13:22 | XRAY ---
CLINICAL HISTORY: right sided weakness/numbness COMPARISON: None TECHNIQUE: Axial non-contrast CT scan of the brain was performed from the skull base to the high parietal region. One of the following dose reduction techniques were utilized for this exam: Automated exposure control, adjustment of the mA and/or kV according to patient size, use of iterative reconstruction. FINDINGS: Brain Parenchyma: Mild age-related cerebral involutional changes were noted. Small bilateral frontal deep periventricular sheet of hypodensity, no mass effect or edema noted. The posterior extent of the right lentiform ganglion shows hypodense focus related to old lacunar infarction. Normal attenuation of the cerebral hemispheres, cerebellum, and brainstem. No evidence of acute infarct, hemorrhage, or mass effect. No abnormal areas of hypo- or hyperattenuation. Ventricular System: Ventricles are normal in size and configuration. No evidence of hydrocephalus or ventricular enlargement. 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 Subarachnoid Spaces: Normal sulci and cisterns. No evidence of subarachnoid hemorrhage or extra-axial fluid collections. Cerebellum and Brainstem: Normal size and signal. No masses, lesions, or areas of abnormal signal. Orbits: Normal appearance of the globes, optic nerves, and extraocular muscles. No evidence of orbital masses or abnormal density. Sinuses: Clear paranasal sinuses. No evidence of sinusitis or mucosal thickening. Mastoid Air Cells: Clear mastoid air cells. No evidence of mastoiditis. Skull and Meninges: Normal skull morphology. Bilateral V4 segments atherosclerotic calcifications noted. IMPRESSION: 1. Mild age-related cerebral involutional changes with small Bifrotnal deep periventricular hypodense sheet related to minimal leukoencephalopathy of microvascular disease. 2. Small right lentiform ganglionic old lacunar infarction is seen, follow-up MRI is recommended. 3. No recent hemorrhagic insult is appreciated. Electronically Signed by: Valentino Astudillo MD. (01/14/2024 13:19:32 EDT)
[2024-01-14 13:37] LABS: ANION GAP 17.7 MEQ/L (5-15); Calcium 9.5 mg/dL (8.4-10.2); Creatinine 1 0.82 mg/dL (0.52-1.04); EST GLOMERULAR FILTRATION RATE 81.8 ML/MIN; Potassium 4.2 mmol/L (3.5-5.1)
[2024-01-14 13:39] LABS: INR 0.98 (0.8-3.0); PROTIME 10.7 SECONDS (9.4-12.5)
--- NOTE | 2024-01-14 14:49 | PCM.CONS ---
History of Present Illness - Neuro Consultation Date of Consultation Date: 01/14/24 ED Arrival Date & Time: 01/14/24 12:49 Providers: Attending Provider: ED Provider: SANDRA KNOX MD Consulting Provider: JAZMINE VALADEZ MD cc:: The requesting physician will be sent a copy of the consult. - Chief Complaint Patient Subjective Stated Complaint: Slurred speech, right sided numbness - History of Present Illness HPI: The patient is a 58F with a history of an ischemic stroke in 2020 (residual right sided weakness, on ASA monotherapy), DM2 with neuropathy, mood disorder, hypertension, restless leg syndrome who presents to the ED today with speech difficulty, right sided sensory loss, and gait difficulty. Patient reports she was in her usual state of health when she awoke this morning. She reports that she has some mild baseline right sided weakness from her prior stroke in 2020. She states that around 1130 she noticed she was having some slurred speech, right lower face weakness, right face/arm/leg sensory loss, and gait instability. She presented to the ED for further evaluation where she was initially getting quite a bit better. Her symptoms again worsened in the ED. She took two ASA 81 mg en route to the ED. Patient underwent CTH which showed no evidence of acute hemorrhage or acute loss of wu-white differentiation. A remote right lacunar infarct was seen. Blood glucose from the BMP was 232. Known stroke risk factors:: Diabetes, Hypertension, Prior Stroke/s Review of Systems - Review of Systems Review of Systems (Narrative): Pertinent positive and negative findings as per HPI. Remaining of 10 systems negative. - Past Medical History Past Medical History: Yes Neurological History: Peripheral Neuropathy, Stroke ENT History: No Pertinent History Cardiac History: High Cholesterol, Hypertension Respiratory History: Other Endocrine Medical History: Diabetes Type II Musculoskelatal History: Arthritis GI Medical History: GERD History: No Pertinent History Pyscho-Social History: Depression, Anxiety Reproductive Disorders: No Pertinent History Comment: BREAST REDUCTION, HYSTERECTOMY, ANXIETY, UNCONTROLLED DM, - Past Surgical History Past Surgical History: Yes Neuro Surgical History: No Pertinent History Cardiac History: No Pertinent History Respiratory Surgery: No Pertinent History GI Surgical History: Appendectomy Genitourinary Surgical Hx: No Pertinent History Musculskeletal Surgical Hx: No Pertinent History Female Surgical History: Hysterectomy Other Surgical History: breast reduction, I and D perirectal abcess - Social History Smoking Status: Never smoker Exposure to second hand smoke: No Alcohol: None Drug Use: none - Social Determinants of Health Will the patient participate in the screening: Yes Do you worry about a steady place to live?: No Do you have any problems with any of the following?: No known problems In the past 12 months,have you had to go without utilities?: No Have you or anyone in your house had to go without enough: No Transportation Issues: No Has anyone in your support network made you feel unsafe?: No Physical Exam - Vital Signs Vital Signs: Vital Signs - 24 hr 01/14/24 01/14/24 01/14/24 12:54 13:10 13:30 Temperature 98.0 F Pulse Rate 85 82 82 Respiratory 14 15 Rate Blood Pressure 128/73 125/64 Blood Pressure 147/70 [Right Arm] O2 Sat by Pulse 96 96 Oximetry 01/14/24 14:00 Temperature Pulse Rate 80 Respiratory 13 Rate Blood Pressure 133/69 Blood Pressure [Right Arm] O2 Sat by Pulse 95 Oximetry - Physical Exam Tele-Neuro Physical Exam (Narrative): - General Appearance: No acute distress. Resting in bed - HEENT: Normocephalic, Atraumatic, moist mucous membrane - CV: Regular on telemetry - Resp: Work of breathing is normal and non-labored. - Mental Status: Orientation: Alert and oriented to person, place, and time. Follows commands. Language: Speech is mildly dysarthric and language comprehension/naming is normal. - Cranial Nerves: Full eye movements. Right sided face numbness. Subtle right face weakness. Hearing is grossly intact. Head is midline. Tongue is midline - Motor Strength: RUE: Able to maintain anti-gravity for greater than 10 seconds RLE: Able to maintain anti-gravity for greater than 5 seconds LUE: Able to maintain antigravity for greater than 10 seconds LLE: Able to maintain antigravity for greater than 5 seconds - Coordination: Finger to nose: R- slow but no ataxic | L- normal Heel to zhu: R- normal | L- normal - Sensation: Diminished to light touch in right face/arm/leg. *Note: Due to inherent limitation of telemedicine, fundoscopic examination, evaluation of muscle tone, reflexes nuchal rigidity and response to noxious stimuli cannot be adequately performed by video. - NIHSS Stroke Scale Date Completed: 09/06/20 Time Stroke Scale Completed: 06:05 Level of Consciousness: Alert Level of Questions: Answers both correctly LOC Commands: Obeys both correctly Best Gaze: Normal Visual: No visual loss Facial Palsy: Minor Motor Arm-Left: No Drift Motor Arm-Right: No Drift Motor Leg-Left: No Drift Motor Leg Right: No Drift Limb Ataxia: Absent Sensory: Partial Loss Best Language: No apashia Dysarthria: Mild to mod dysarthria Extinction and Inattention: No Neglect (Unable to ambulate) Stroke Risk Level: 3 Results - Labs Lab/Micro Results: Lab Results-Last 24 Hours 01/14/24 01/14/24 01/14/24 Range/Units 13:10 13:10 13:10 WBC 10.3 H (3.98-10.04) x10^3/uL RBC 4.52 (3.93-5.22) x10^6/uL Hgb 12.2 (11.2-15.7) g/dL Hct 37.1 (34.1-44.9) % MCV 82.1 (79.4-94.8) fL MCH 27.0 (25.6-32.2) pg MCHC 32.9 (32.2-35.5) g/dL RDW 13.2 (11.7-14.4) % Plt Count 307 (182-369) x10^3/uL MPV 10.2 (9.4-12.3) fL Gran % 58.5 (34.0-71.1) % Immature Gran % (Auto) 0.2 (0.001-0.429) % Nucleat RBC Rel Count 0.0 (0.00-0.2) % Eos # (Auto) 0.49 H (0.04-0.36) x10^3/uL Immature Gran # (Auto) 0.02 (0.001-0.031) x10^3u/L Absolute Lymphs (auto) 3.19 (1.18-3.74) x10^3/uL Absolute Monos (auto) 0.48 (0.24-0.86) x10^3/uL Absolute Nucleated RBC 0.00 (0.00-0.012) x10^3u/L Lymphocytes % 31.1 (19.3-51.7) % Monocytes % 4.7 (4.7-12.5) % Eosinophils % 4.8 (0.7-5.8) % Basophils % 0.7 (0.1-1.2) % Absolute Granulocytes 6.02 (1.56-6.13) x10^3/uL Basophils # 0.07 (0.01-0.08) x10^3/uL PT 10.7 (9.4-12.5) SECONDS INR 0.98 (0.8-3.0) APTT 25.0 L (25.1-36.5) SECONDS Sodium 138 (135-145) mmol/L Potassium 4.2 (3.5-5.1) mmol/L Chloride 104 (98-107) mmol/L Carbon Dioxide 21 L (22-30) mmol/L Anion Gap 17.7 H (5-15) MEQ/L BUN 22 H (7-17) mg/dL Creatinine 0.82 (0.52-1.04) mg/dL Estimated GFR 81.8 ML/MIN Glucose 232 H (74-106) mg/dL Calcium 9.5 (8.4-10.2) mg/dL Troponin I (0.000-0.033) ng/mL 01/14/24 Range/Units 13:10 WBC (3.98-10.04) x10^3/uL RBC (3.93-5.22) x10^6/uL Hgb (11.2-15.7) g/dL Hct (34.1-44.9) % MCV (79.4-94.8) fL MCH (25.6-32.2) pg MCHC (32.2-35.5) g/dL RDW (11.7-14.4) % Plt Count (182-369) x10^3/uL MPV (9.4-12.3) fL Gran % (34.0-71.1) % Immature Gran % (Auto) (0.001-0.429) % Nucleat RBC Rel Count (0.00-0.2) % Eos # (Auto) (0.04-0.36) x10^3/uL Immature Gran # (Auto) (0.001-0.031) x10^3u/L Absolute Lymphs (auto) (1.18-3.74) x10^3/uL Absolute Monos (auto) (0.24-0.86) x10^3/uL Absolute Nucleated RBC (0.00-0.012) x10^3u/L Lymphocytes % (19.3-51.7) % Monocytes % (4.7-12.5) % Eosinophils % (0.7-5.8) % Basophils % (0.1-1.2) % Absolute Granulocytes (1.56-6.13) x10^3/uL Basophils # (0.01-0.08) x10^3/uL PT (9.4-12.5) SECONDS INR (0.8-3.0) APTT (25.1-36.5) SECONDS Sodium (135-145) mmol/L Potassium (3.5-5.1) mmol/L Chloride (98-107) mmol/L Carbon Dioxide (22-30) mmol/L Anion Gap (5-15) MEQ/L BUN (7-17) mg/dL Creatinine (0.52-1.04) mg/dL Estimated GFR ML/MIN Glucose (74-106) mg/dL Calcium (8.4-10.2) mg/dL Troponin I < 0.012 (0.000-0.033) ng/mL - Radiology Orders Radiology Orders: Radiology Procedures Category Date Time Status HEAD WITHOUT CONTRAST [CT] Stat Exams 01/14/24 12:50 Completed - CT Impressions CT Head w/o contrast Status: image reviewed by me (No hemorrhage or acute loss of wu white differentiation. Chronic appearing right lacunar infarct.) Impressions & Recommendations - Impression Acute Ischemic Stroke: Acute ischemic stroke localizing to the left hemisphere (likely subcortical lacunar). - ED Arrival Time ED Arrival Date & Time: ED Arrival Date and Time 01/14/24 12:49 Last known well time: 01/14/2024 at 1130 - NIHSS NIHSS: 3 Pre-Admission mRS: 1 Is patient an IV TPA candidate (if no specify reason): Yes Treatment decision time:: 14:55 IV Thrombolysis Standard of Care: IV thrombolysis as a standard of care in acute stroke discussed with SANDRA KNOX MD. Risk, benefits, and options of IV thrombolytic therapy for acute ischemic stroke were discussed with the patient/family KHURRAM INFANTE. We discussed that use of IV tenecteplase is in line with national stroke guidelines. We discussed that risks of IV thrombolytic use include intracranial hemorrhage, other fatal bleeding risks, and angioedema. Alternatives of treatment, including not proceeding with thrombolytic therapy were discussed. Thrombolysis administered at: 15:17 - Recommendations Recommendations: -Neuro checks, NIHSS, vital signs monitoring as per post tPA protocol -Obtain CTA head/neck STAT to rule out a large vessel occlusion and further assess cerebrovasculature; if a large vessel occlusion is present, recommend discussion with neurointervention. Feel free to reach out to [facility] if any questions regarding findings on patient's CTA head/neck. -Repeat non contrast head CT or noncontrast MRI brain 24 hours after IV thrombolyltic administration. -Obtain STAT non contrast head CT if there are new neurological deficits, worsening of current deficits, or with complaint of severe headache. Notify Neurology REBECA of changes in neurological exam. -Nicardipine gtt as needed to maintain BP< 180/105 x 24hr post tPA administration. -Monitor for angioedema -SCD's for DVT prophylaxis. Work up: -Basic labs (CBC, BMP, TSH+T4) if not done already. -INR,PTT if not done already -Fasting Lipid Panel and Hgb A1c -Transthroacic echocardiogram [with bubble study] -EKG + Telemetry- monitor for A-FIB Secondary Stroke Prevention -Hold off on antiplatelet therapy x 24 hr post IV thrombolytic therapy Decision to initiate antiplatelet therapy, or anticoagulation if needed, will be based on repeat imaging at 24 hour post thrombolytic administration. -If not medical contraindication, start high intensity statin. Eg. Atorvastatin 80 mg daily Risk Factor Management -HTN control: BP <180/105 for first 24 hr post tenecteplase -If diabetic, optimize glucose control: intermediate teacher goal HgA1c <7 -HLD control: Long-term goal LDL <70. High intensity statin recommended. Moderate intensity statin in patients > 75 years. -Smoking Alcohol Use Drug use cessation counseling Stroke Rehabilitation: -Physical therapy, occupational therapy, speech therapy consults -Social work and case management consults for help with discharge needs. Impression and recommendation were discussed with Dr. SANDRA KNOX MD Thank you for allowing us to participate in this patient's care. Please call [facility] with questions, concerns, or change in patient's neurological status. This consult was performed via secure telemedicine audio/visual platform with BENSON Kilgore assisting at bedside. Patient identity verified and consent obtained. TIQ recieved at 1404 Neuro Cart Time: 1439 Assessment & Plan (1) Acute ischemic stroke Current Visit: Yes Status: Acute Assessment & Plan: As above Code(s): I63.9 - CEREBRAL INFARCTION, UNSPECIFIED - Encounter Encounter: "The entirety of this encounter was performed via Telemedicine using audio and visual "
[2024-01-14] MEDS: Activase 100 MG IV STA (15:07)
--- NOTE | 2024-01-14 18:01 | XRAY ---
CLINICAL HISTORY: cva COMPARISON: Prior non-contrast CT study 01/14/2024 was reviewed TECHNIQUE: Axial CT angiography of the head was done with 80 cc isovue-370 contrast and sagittal and coronal reformats with MIP reconstructions. 3D reconstruction was performed. One of the following dose reduction techniques were utilized for this exam: Automated exposure control, adjustment of the mA and/or kV according to patient size, and use of iterative reconstruction. FINDINGS: Intracranial Arteries: The intracranial portions of the internal carotid arteries, anterior cerebral arteries, middle cerebral arteries, posterior cerebral arteries, basilar artery, and vertebral arteries are well-opacified. No evidence of aneurysm, stenosis, or occlusion. No significant atherosclerotic changes. [place]: The [place] is complete. Normal caliber of the communicating arteries. No vascular malformations or aneurysms. Right PCOM (variant) Venous Structures: Normal opacification of the major dural venous sinuses. No evidence of venous sinus thrombosis. Brain Parenchyma: Normal attenuation of the cerebral hemispheres, cerebellum, and brainstem. No evidence of acute infarct, hemorrhage, or mass effect. Ventricular System: Ventricles are normal in size and configuration. No evidence of hydrocephalus or ventricular enlargement. Skull and Meninges: Normal appearance of the skull. No evidence of meningeal enhancement or thickening. Orbits: Normal appearance of the globes, optic nerves, and extraocular muscles. No evidence of orbital masses or abnormal signals. incidental bilateral choroid plexus xanthogranuloma IMPRESSION: 1. No evidence of stenotic lesion or cerebral aneurysms 2. Rig[place] PCOM 3, Age-matched cerebral involutional changes 4. Incidental bilateral choroid plexus xanthogranuloma Electronically Signed by: Valentino Astudillo MD. (01/14/2024 17:56:10 EDT)
--- NOTE | 2024-01-14 18:08 | XRAY ---
CLINICAL HISTORY: cva COMPARISON: Prior studies 01/14/2024 were reviewed. TECHNIQUE: CT angiography study of the neck vessels with IV contrast 80 cc Isovue 370 was performed and multiple axial sections were obtained with coronal and sagittal reconstructions. One of the following dose reduction techniques were utilized for this exam: Automated exposure control, adjustment of the mA and/or kV according to patient size, and use of iterative reconstruction. One of these 3D techniques was utilized: Maximum Intensity Pixel (MIP), 3D Reconstructed Images, Volume Rendered Images, Surface Shaded Rendering. FINDINGS: Carotid Arteries: Common carotid arteries, internal carotid arteries, and external carotid arteries bilaterally are well-opacified. No evidence of significant stenosis, occlusion, or aneurysm. No significant atherosclerotic changes. Vertebral Arteries: Vertebral arteries bilaterally are well-opacified. No evidence of significant stenosis, occlusion, or aneurysm. No significant atherosclerotic changes. Jugular Veins: Normal opacification of the internal and external jugular veins bilaterally. No evidence of thrombosis or compression. Subclavian Arteries: Subclavian arteries bilaterally are well-opacified. No evidence of significant stenosis, occlusion, or aneurysm. Thyroid Gland: Normal size and morphology of the thyroid gland. No masses or nodules. Soft Tissues: Normal appearance of the surrounding soft tissues of the neck. No abnormal masses or lymphadenopathy. Cervical Spine: Normal alignment and signal intensity of the cervical vertebrae. No fractures, lytic or sclerotic lesions. IMPRESSION: 1. No evidence of stenotic lesion, aneurysmal dilatations, or dissection 2. Normal CT angiography of the neck. 3. No evidence of significant vascular abnormalities. Electronically Signed by: Valentino Astudillo MD. (01/14/2024 18:04:40 EDT)
[2024-01-14 20:28] VITALS: BP 133/71; PULSE 79; RESP 17; O2SAT 94
== END 2024-01-14 20:49 | disposition short-term general hospital (02) ==
LOC: ED 12:49
DX: I63.9 Cerebral infarction, unspecified (principal); R47.81 Slurred speech; R29.810 Facial weakness; G81.91 Hemiplegia, unspecified affecting right dominant side; Z86.73 Personal history of transient ischemic attack (TIA), and cerebral infarction without residual deficits; E78.5 Hyperlipidemia, unspecified; I10 Essential (primary) hypertension; E11.42 Type 2 diabetes mellitus with diabetic polyneuropathy; Z79.4 Long term (current) use of insulin; Z79.899 Other long term (current) drug therapy
CPT/HCPCS: 36000; 36415; 70450; 70496; 70498; 80048; 84484; 85025; 85610; 85730; 93005; 93041; 96374; 99291; Q3014; 70491; 96375; 99285; J2997